=== PATIENT | male | born 1940 | race Caucasian/White ===

== ENCOUNTER 2019-08-03 15:50 | Emergency (ER) | payer MEDICARE, MEDICAID, SELFPAY ==
[2019-08-03] VITALS (15 sets, daily range): BP systolic 102–161; BP diastolic 67–90; PULSE 90–136; RESP 16–28; TEMP 36.7; O2SAT 94–98
--- NOTE | ~2019-08-03 | XR_ITS ---
EXAMINATION: XR chest 1V portable INDICATION: Cough and shortness of breath TECHNIQUE: Portable AP chest at 1620 hours COMPARISON: 05/29/2016 FINDINGS: There are patchy bilateral airspace opacities. No pleural effusion or pneumothorax is ident ified. The cardiomediastinal silhouette is normal for technique. There is moderate osteoarthritis of the shoulders. IMPRESSION: 1. Patchy bilateral airspace opacities, consistent with atelectasis versus pneumonia. Reviewed, dictated and finalized at location A. IMPRESSION: 1. Patchy bilateral airspace opacities, consistent with atelectasis versus pneu monia.
--- NOTE | 2019-08-03 16:08 | ECG_ITS ---
Measurements Intervals [place] Rate: 133 P: [place]: 0 QRS: 20 QRSD: 106 T: 71 QT: 289 QTc: 431 Interpretive Statements ATRIAL FIBRILLATION WITH RAPID VENTRICULAR RESPONSE INFERIOR INFARCT, AGE INDETERMINATE BORDERLINE ST-T WAVE ABNORMALITY- LATERAL LEADS BASELINE ARTIFACT- I, II, III, AVR, AVL, AVF, V4-V6 ABNORMAL ECG Electronically Signed On 08-03-2019 17:10:36 CDT by Isma Lopez D.O.
--- NOTE | 2019-08-03 16:12 | ED.GENADULT ---
HPI - General Adult General Chief complaint: Shortness of Breath/Dyspnea Stated complaint: amb Time Seen by Provider: 08/03/19 16:08 History of Present Illness HPI narrative: Neida is 79M with a past medical history of AFib, hypertension, obesity and arthritis who presented to the ER with anasarca and shortness of breath by EMS. He had worsening swelling that started in his lower extremities and progressed up to his waist over the last few days. Today he has had worsening shortness of breath and tightness in his chest. He denies constance chest pain, syncope / near syncope, nausea, vomiting and diaphoresis. Related Data Home Medications Medication Instructions Recorded Confirmed potassium chloride 10 meq PO DAILY 08/03/19 08/03/19 Allergies Allergy/AdvReac Type Severity Reaction Status Date / Time No Known Allergies Allergy Unverified 12/16/15 09:15 Review of Systems Constitutional: Constitutional: Denies chills, Reports fatigue and Denies fever(s) Eyes: Eyes: Reports no additional eye complaints ENT: Reports system reviewed and no additional complaints, except as documented Cardiovascular: Cardiovascular: Denies chest pain, Denies radiating jaw, neck or arm pain and Denies slow heart rate Comments: no palpitations Respiratory: Respiratory: Reports as per HPI Gastrointestinal: Gastrointestinal: Reports no additional gastrointestinal complaints Genitourinary: Genitourinary: Reports no additional male genitourinary complaints Musculoskeletal: Musculoskeletal: Reports no additional musculoskeletal complaints Integumentary/Breasts: Skin/Breast: Reports system reviewed and no additional complaints, except as docu Neurologic: Reports system reviewed and no additional complaints, except as documented Psychiatric: Psychiatric: Reports no additional psychiatric complaints Endocrine: Endocrine: Reports no additional endocrine complaints Hematologic/Lymphatic: Hematologic/Lymphatic: Reports no additional hematologic/lymphatic complaints Allergic/Immunologic: Allergic/Immunologic: Reports no additional allergic/immunologic complaints [facility] Past Medical History Medical History A-fib HTN (hypertension) Obesity (BMI 30-39.9) Osteoarthritis involving multiple joints on both sides of body Surgical History Surgical History Hx of cataract removal with insertion of prosthetic lens Family History Family History Mother Family history of type 2 diabetes mellitus Sister Hypertension Father Family history of coronary artery disease Other Family history of cardiovascular disease Social History Social History Smoking status: Former smoker Alcohol intake: never Exam Const: General: no acute distress and alert; No confusion Nutritional Appearance: obese Orientation/consciousness: patient oriented x3 Limitations: No altered mental status HENMT: Other: normocephalic, atraumatic Eyes: Conjunctivae: conjunctivae normal Pupils: Equal, round and reactive pupils present Neck: Neck: normal visual inspection Chest: Chest palpation & inspection: normal inspection of the chest Resp: Other: increased work of breathing, mild tachypnea, wheezes in the upper lobes bilaterally and crackles in the lower lobes bilaterally. had SOB with lying down. Cardio: Other: tachycardia. Irregularly irregular rhythm. no murmurs noted. 4+ pitting edema to the upper thigh GI: Inspection: non-distended GI Palp: Yes Soft to palpation and No Tenderness to palpation present (GI) Skin: General skin exam: normal color Rashes: no rashes Neuro: General: patient oriented x3 and moves all extremities Extrem: General: normal to inspection Psych: Mental Status: mental status grossly normal Affect: nor
--- NOTE | 2019-08-03 16:13 | PC.NURSE ---
INTERNATIONAL PROJECT MANAGER PERFORMING PCXR AT THIS TIME
[2019-08-03] MEDS: FUROSEMIDE INJ 40 MG/4 ML VIAL IV PUSH (16:24)
[2019-08-03] MEDS: ASPIRIN 81 MG ENTERIC TABLET 324 MG PO (16:25)
[2019-08-03 16:26] LABS: Basophils Absolute Auto 0.02 K/mm3 (0.00-0.10); Basophils Percent Auto 0.3 % (0.0-1.0); Eosinophils Absolute Auto 0.19 K/mm3 (0.02-0.50); Eosinophils Percent Auto 3.3 % (1.0-6.0); Hematocrit 37.9 % (37.0-46.0); Hemoglobin 12.2 g/dL (12.4-15.3); Immature Granulocyte Absolute 0.01 K/mm3 (0.00-0.00); Immature Granulocyte Percent A 0.2 % (0.0-0.0); Lymphocytes Percent Auto 22.4 % (18.0-42.0); Mean Corpuscular HGB Conc 32.2 g/dL (32.0-36.0); Mean Corpuscular Volume 96.2 fL (78.0-102.0); Mean Platelet Volume 10.8 fl (8.7-11.0); Monocytes Absolute Auto 0.53 K/mm3 (0.10-0.90); Monocytes Percent Auto 9.1 % (2.0-11.0); Neutrophils Absolute Auto 3.8 K/mm3 (1.7-7.2); Neutrophils Percent Auto 64.7 % (50.0-70.0); Platelet Count Result 253 K/mm3 (150-420); Red Blood Count 3.94 M/mm3 (4.70-6.10); Red Cell Distribution Width 14.7 % (11.6-14.4); White Blood Count 5.8 K/mm3 (4.8-10.8)
[2019-08-03] MEDS: IPRATROPIUM 0.5 MG/ALBUTEROL SULFATE 2.5 MG AMPUL.NEB 3 ML INHALATION (16:37)
[2019-08-03 16:41] LABS: INR 1.2
[2019-08-03 16:48] LABS: BNP 496 pg/mL (0-100)
[2019-08-03 16:49] LABS: Alanine Aminotransferase 22 U/L (16-63); Albumin Level 3.3 g/dL (3.4-5.0); Alkaline Phosphatase 85 U/L (46-116); Anion Gap 9.7 mmol/L (7-16); Aspartate Amino Transferase 21 U/L (15-37); Bilirubin,Total 0.6 mg/dL (0.00-1.00); Blood Urea Nitrogen 13 mg/dL (7-18); Calcium 8.6 mg/dL (8.5-10.1); Carbon Dioxide 31 mmol/L (21-32); Chloride 105 mmol/L (98-108); Estimated CRCL calculation 59 ml/min; Estimated Glomerular Filt Rate > 60; Glucose 90 mg/dL (70-99); Osmolality Calculated 294 mOsm/kg (285-295); Potassium 3.7 mmol/L (3.5-5.1); Sodium 142 mmol/L (136-145)
[2019-08-03] MEDS: METOPROLOL TARTRATE INJ 5 MG/5 ML VIAL IV PUSH (17:28)
[2019-08-03] MEDS: HEPARIN SODIUM 5,000 UNITS/ML VIAL 5000 UNITS (17:33)
[2019-08-03] MEDS: HEPARIN SOD/D5W 100 UNITS/ML 25,000 UNITS/250 ML BAG 13.5 UNITS (17:34)
--- NOTE | 2019-08-03 17:49 | PC.NURSE ---
HEPARIN BOLUS 4,000 UNITS, IVP RATE 10 ML/HR OR 1000U/HR
[2019-08-03] MEDS: MORPHINE SULFATE 4 MG/ML INJ IV PUSH (18:23)
== END 2019-08-03 18:33 | disposition short-term general hospital (02) ==
PROVIDERS: Emergency Provider Family Medicine; PCP Family Medicine
DX: I50.9 Heart failure, unspecified (principal); I21.4 Non-ST elevation (NSTEMI) myocardial infarction; I48.91 Unspecified atrial fibrillation; I10 Essential (primary) hypertension; Z87.891 Personal history of nicotine dependence
CPT/HCPCS: 36415; 71045; 80053; 83735; 83880; 84484; 85025; 85610; 93005; 94640; 96365; 96375; 99285; A9270; J1644; J1940; J2270

== ENCOUNTER 2019-08-03 19:10 | Inpatient (IN) | payer MEDICARE, MEDICAID, SELFPAY ==
--- NOTE | ~2019-08-03 | US_ITS ---
EXAMINATION: US renal BI EXAM DATE: 08/06/2019 10:22 INDICATION: Hematuria. Looking for blood clots. TECHNIQUE: Multiple grayscale and Doppler images of the kidneys were obtained (by a technologist who performed the scan) and subsequently reviewed. There is no prior study for comparison. FINDINGS: There is bilateral renal cortical thinning. Right kidney: There is normal contour and echogenicity. It measures 12.2 x 6.0 x 6.1 centimeters. An echoic lesion likely cyst measuring 3.1 x 3.0 x 3.3 cm. There is no hydronephrosis. Left kidney: There is normal contour and echogenicity. It measures 11.8 x 5.3 x 5.6 centimeters. Th ere are no focal renal lesions identified. There is no hydronephrosis. There is a Blackwood catheter within collapsed bladder. There is some echogenic debris surrounding the ti p of the catheter, which could be blood clot, total volume approximating the size of the Blackwood balloo n anchor. IMPRESSION: 1. Echogenic debris within bladder which could be blood clot. 2. Bilateral renal cortical thinning. Reviewed, dictated and finalized at location A.
[2019-08-03 19:10] VITALS: BP 151/76; PULSE 115; RESP 20; TEMP 36.8; O2SAT 93
[2019-08-03 19:39] VITALS: BMI 38.4
--- NOTE | 2019-08-03 19:57 | ECG_ITS ---
Measurements Intervals [place] Rate: 112 P: [place]: 0 QRS: 20 QRSD: 89 T: 60 QT: 297 QTc: 406 Interpretive Statements ATRIAL FIBRILLATION WITH RAPID VENTRICULAR RESPONSE CONSIDER INFERIOR INFARCT, AGE INDETERMINATE NONSPECIFIC T-WAVE ABNORMALITY- LATERAL LEADS BASELINE ARTIFACT- I, II, III, AVR, AVL, AVF ABNORMAL ECG Electronically Signed On 08-04-2019 7:05:11 CDT by Isma Lopez D.O.
--- NOTE | 2019-08-03 20:03 | PM.IMHP ---
H&P: HPI History of Present Illness Chief complaint: Shortness of breath w/ swelling for the past 3 day Narrative: This is a pleasant 79 year old morbidly obese male with known CAD+, CHF, atrial fibrillation chronically anticoagulated on Eliquis who presented to [facility] today with a complaint of worsening shortness of breath over the past 3 days. The patient noticed that he was also getting more lower extremity swelling over the past few days extending up towards his groin. His shortness of breath is worsened with any exertion. He has had a sporadic nonproductive cough and denies any sore throat, ear pain, fevers, nasuea, vomiting, abdominal pain, chest pain, palpitations, dysuria, diarrhea or rectal bleeding. The patient cannot tell me the last time he had an echocardiogram and he was told at some point that he had a mild heart attack in the past. The patient was evaluated at [facility] and found to be in acute CHF w/ increased peripheral edema and pulmonary congestion. He was also found to be in atrial fibrillation w/ RVR and his troponin was mildly elevated. The patient was transferred to our hospital for further care. He was treated with Lasix 40 mg IV. The patient has been taking his home medications including his Elquis without missing any doses. The patient was started on IV heparin at [facility]. On further questioning the patient admits to me that he has been eating whatever he likes and doesn't bother to watch how much salt is in the food that he eats. He is also drinking large quantities of sodas. He currently lives alone and his daughter tells me that her father likely can no longer care for himself. Review of Systems Review of Systems: All systems reviewed & are unremarkable except as noted in HPI and below PMFSH Past Medical History Medical History A-fib HTN (hypertension) Obesity (BMI 30-39.9) Osteoarthritis involving multiple joints on both sides of body Surgical History Surgical History Hx of cataract removal with insertion of prosthetic lens Family History Family History Mother Family history of type 2 diabetes mellitus Sister Hypertension Father Family history of coronary artery disease Other Family history of cardiovascular disease Social History Social History Smoking packs per day: 3 Smoking cigarettes per day: 60.0 Years smoked: 25 Smoking pack-years: 75.00 Smoking status: Former smoker Tobacco type: cigarettes Smoking end date: 05/20/88 Alcohol intake: former Drinks per week: 5 Substance use: never Gender identity (if verbalized by the patient): Male Spiritual care concerns: No Agree to blood products: Yes Meds Home Medications and Allergies Home Medications Medication Instructions Recorded Confirmed Type diltiazem HCl 240 mg 240 mg PO DAILY #30 cap 04/27/19 08/03/19 Rx capsule,extended release 24 hr furosemide 40 mg tablet 40 mg PO QAM #30 tablet 04/27/19 08/03/19 Rx apixaban 5 mg tablet 5 mg PO BID #60 tablet 06/01/19 08/03/19 Rx hydrocodone 10 mg-acetaminophen 1 tablet PO Q8H PRN #90 tablet 07/09/19 08/03/19 Rx 325 mg tablet oxybutynin chloride 5 mg PO HS 08/03/19 08/03/19 History potassium chloride 10 meq PO DAILY 08/03/19 08/03/19 History terazosin 2 mg PO HS 08/03/19 08/03/19 History Allergies Allergy/AdvReac Type Severity Reaction Status Date / Time No Known Allergies Allergy Unverified 12/16/15 09:15 Vital Signs Vital Signs - 24 hr 08/03/19 19:10 Temperature 36.8 C Pulse Rate 115 H Respiratory Rate 20 Blood Pressure 151/76 H Pulse Oximetry 93 Exam Const: General: cooperative, alert, awake and ill appearing chronically Nutritional Appearance: obese morbidly obese Orientation/consciousness: patient
[2019-08-03 20:51] LABS: Troponin I 0.323 ng/mL (0.000-0.034)
[2019-08-03] MEDS: APIXABAN 5 MG TABLET PO (21:00)
[2019-08-03] MEDS: TERAZOSIN HCL 1 MG CAPSULE 2 MG PO (21:00)
[2019-08-03 21:09] LABS: Add Urine Microscopic? YES; Appearance Urine Cloudy (Clear); Bilirubin Urine Negative (Negative); Blood Urine 3+ (Negative); Budding Yeast Urine Present /hpf; Color Urine Red (Yellow); Glucose Urine UA 1+ mg/dL (Negative); Ketones Urine Trace mg/dL (Negative); Leukocyte Esterase Ur Trace LEU/UL (Negative); Nitrate Urine Negative (Negative); Protein Urine 3+ mg/dL (Negative); RBC Urine >75 /hpf (0-2); Specific Grav Ur 1.009 (1.001-1.035); Urobilinogen Urine Negative mg/dL (<2.0); WBC Clumps Urine Present /HPF; WBC Urine >75 /hpf
--- NOTE | 2019-08-03 22:33 | ADMGEN ---
This patient, Neida Mondragon, was admitted to IMU Room 207-01 FROM [facility] ADM. 08/03/191909. Patient/family oriented to hospital policies and general routines including ID bracelet, bed and alarms, visiting hours, pain management, procedures, bathroom and other care routines, personal items, smoking policy, room service/diet, and visiting hours. Valuables list has been completed. Information on how to activate the Rapid Response Team has been discussed. Patient/Family are encouraged to report perceived risks to care and to ask questions if they do not understand what they are told or what they should do.
[2019-08-03] MEDS: LORAZEPAM 0.5 MG TABLET PO (22:53)
[2019-08-03] MEDS: OXYBUTYNIN CHLORIDE 5 MG TABLET PO (22:53)
[2019-08-03 23:41] VITALS: BP 124/76; PULSE 110; RESP 20; TEMP 36.8; O2SAT 95
[2019-08-03 23:59] VITALS: PULSE 127
[2019-08-04] VITALS (15 sets, daily range): BP systolic 105–156; BP diastolic 41–96; PULSE 107–140; RESP 18–22; TEMP 36.6–37.4; O2SAT 93–98
--- NOTE | 2019-08-04 | ECHO_ITS ---
Patient Info Name: Neida Mondragon Age: 79 years : 1940 Gender: Male Ht: 69 in Wt: 260 lbs BSA: 2.45 m2 HR: 135 bpm BP: 133 / 86 mmHg Heart Rhythm: Atrial Fibrillation Technical Quality: Fair Exam Date: 08/04/2019 1:00 PM Exam Location: [facility] Pulmonary Patient Status: Inpatient Admit Date: 08/03/2019 Staff Ordering Physician: Ravindra Galeano MD Human Resources Professional: Maurilio Fritz RDCS Attending Provider: Ruddy Blakely MD Referring Physician: Waleska NEGRON; Exam Type: CA echo dop color flow w con Study Info Indications I50.20 - Unspecified systolic (congestive) heart failure Complete two-dimensional, color flow and Doppler transthoracic echocardiogram is performed with contrast to opacify the left ventrical and to improve the deliniation of the left ventrical endocarial boarders. Contrast/Agitated Saline Contrast/Ag. Saline: Definity Amount: 2.00 ml Administered By: Noman Pisano RN Existing IV Access: Yes History/Risk Factors Afib and CHF exacerbation; HTN, CAD, SOB, edema, elevated trops. Summary 1. Left ventricular chamber dimension is mildly enlarged. 2. Left ventricular systolic function is severely reduced, estimated at 20-25%. 3. There is mildly increased left ventricular wall thickness. 4. The left ventricular diastolic function is indeterminate. 5. Global hypokinesis of the left ventricle. 6. Left atrial chamber dimension is mildly enlarged. 7. There is mild aortic valve sclerosis. 8. There is mild mitral valve regurgitation. 9. The mitral valve has thickened leaflets. 10. There is mild tricuspid valve regurgitation. Left Ventricle Left ventricular chamber dimension is mildly enlarged. Left ventricular systolic function is severely reduced, estimated at 20-25%. There is mildly increased left ventricular wall thickness. The left ventricular diastolic function is indeterminate. Global hypokinesis of the left ventricle. Right Ventricle Right ventricular chamber dimension is normal. Right ventricular systolic function is normal. Left Atria Left atrial chamber dimension is mildly enlarged. Right Atria Right atrial chamber dimension is normal. Atrial Septum Intact interatrial septum visualized by color flow imaging. Aortic Valve The aortic valve is trileaflet. There is mild aortic valve sclerosis. There is no aortic valve stenosis. There is trace aortic valve regurgitation. Pulmonic Valve The pulmonic valve is not well visualized. There is no pulmonic valve stenosis. Mitral Valve The mitral valve has thickened leaflets. There is no mitral valve stenosis. There is mild mitral valve regurgitation. Tricuspid Valve The tricuspid valve leaflets are normal. There is no significant tricuspid valve stenosis. There is mild tricuspid valve regurgitation. Pericardium/Pleural The pericardium appears normal. There is trivial pericardial effusion. Inferior Vena Cava Dilated inferior vena cava with no collapse upon inspiration consistent with elevated right atrial pressure, 20 mmHg. Aorta The aortic root size at the sinus of Valsalva is borderline dilated. Left Ventricular Outflow Tract Name Value Normal LVOT 2D
[2019-08-04 00:11] LABS: Troponin I 0.326 ng/mL (0.000-0.034)
[2019-08-04 04:50] LABS: Basophils Percent Auto 0.2 % (0.2-1.2); Eosinophils Absolute Auto 0.1 K/mm3 (0-0.3); Eosinophils Percent Auto 1.1 % (0-4.4); Hematocrit 39.9 % (42.0-52.0); Hemoglobin 12.9 g/dL (14.0-18.0); Immature Granulocyte Absolute 0.04 K/mm3 (0.00-0.031); Immature Granulocyte Percent A 0.4 % (0-0.5); Lymphocytes Absolute Auto 1.14 K/mm3 (0.9-3.2); Lymphocytes Percent Auto 11.5 % (18.3-44.2); Mean Corpuscular HGB Conc 32.3 g/dl (32-36); Mean Corpuscular Hemoglobin 30.7 pg (26-34); Mean Platelet Volume 11.3 fl (7.4-10.4); Monocytes Absolute Auto 0.8 K/mm3 (0.1-0.6); Monocytes Percent Auto 7.9 % (2.6-8.5); Neutrophils Absolute Auto 7.9 K/mm3 (1.3-6.7); Neutrophils Percent Auto 78.9 % (45.5-73.1); Platelet Count Result 282 k/mm3 (150-375); Red Cell Distribution Width 14.9 % (11.5-14.5)
[2019-08-04 05:13] LABS: Blood Urea Nitrogen 13 mg/dL (9-20); Carbon Dioxide 30 mmol/L (22-30); Chloride 102 mmol/L (98-107); Estimated CRCL calculation 66 ml/min; Estimated Glomerular Filt Rate > 60; Glucose 110 mg/dL (75-110); Potassium 3.5 mmol/L (3.4-5.0); Sodium 140 mmol/L (137-145)
[2019-08-04 05:30] LABS: Troponin I 0.262 ng/mL (0.000-0.034)
--- NOTE | 2019-08-04 07:25 | WPDURCON ---
Assessment and Plan Assessment and plan (1) Urinary retention: Code(s): R33.9 - Retention of urine, unspecified Status: Acute (2) Gross hematuria: Code(s): R31.0 - Gross hematuria Status: Acute Assessment and Plan: Hematuria and retention likely due to BPH. Bleeding stopped probably with Blackwood catheter placement. Will start finasteride and stop oxybutynin. If hematuria continues to be resolved over the next 8-12 hours I am comfortable with continuing/resumption of anticoagulation. Urology Consult Note HPI Date Seen: 08/04/19 Requesting Physician: Ruddy Blakely MD Primary Care Provider: Ko Garcia DO Consult Narrative Narrative: Neida Mondragon is a 79 year old male reports a longstanding history of prostatism reports a longstanding history of prostatism but has never seen a urologist. He was admitted overnight with congestive heart failure and, reportedly, his fat been found to be in atrial fibrillation. With anticoagulation he developed hematuria with eventual clot urinary retention. The nurses removed his 2 small indwelling catheter because of an inability to irrigate. It did not attempt replacement of the catheter he then went into urinary retention. Review of Systems Cardiovascular: Cardiovascular: Denies chest pain, Denies lightheadedness, Denies palpitations and Denies dyspnea Respiratory: Respiratory: Denies dyspnea and Reports dyspnea on exertion Gastrointestinal: Gastrointestinal: Denies diarrhea, Denies nausea and Denies vomiting Genitourinary: Genitourinary: Denies hematuria and Denies dysuria Endocrine: Endocrine: Denies palpitations PMFSH Past Medical History Medical History A-fib HTN (hypertension) Obesity (BMI 30-39.9) Osteoarthritis involving multiple joints on both sides of body Surgical History Surgical History Hx of cataract removal with insertion of prosthetic lens Family History Family History Mother Family history of type 2 diabetes mellitus Sister Hypertension Father Family history of coronary artery disease Other Family history of cardiovascular disease Social History Social History Smoking packs per day: 3 Smoking cigarettes per day: 60.0 Years smoked: 25 Smoking pack-years: 75.00 Smoking status: Former smoker Tobacco type: cigarettes Smoking end date: 05/20/88 Alcohol intake: former Drinks per week: 5 Substance use: never Gender identity (if verbalized by the patient): Male Spiritual care concerns: No Agree to blood products: Yes Meds Home Medications and Allergies Home Medications Medication Instructions Recorded Confirmed Type diltiazem HCl 240 mg 240 mg PO DAILY #30 cap 04/27/19 08/03/19 Rx capsule,extended release 24 hr furosemide 40 mg tablet 40 mg PO QAM #30 tablet 04/27/19 08/03/19 Rx apixaban 5 mg tablet 5 mg PO BID #60 tablet 06/01/19 08/03/19 Rx hydrocodone 10 mg-acetaminophen 1 tablet PO Q8H PRN #90 tablet 07/09/19 08/03/19 Rx 325 mg tablet oxybutynin chloride 5 mg PO HS 08/03/19 08/03/19 History potassium chloride 10 meq PO DAILY 08/03/19 08/03/19 History terazosin 2 mg PO HS 08/03/19 08/03/19 History Allergies Allergy/AdvReac Type Severity Reaction Status Date / Time No Known Allergies Allergy Unverified 12/16/15 09:15 Vital Signs Vital Signs - 24 hr 08/03/19 19:10 08/03/19 23:41 08/03/19 23:59 Temperature 98.3 F 98.2 F Pulse Rate 115 H 110 H 127 H Respiratory Rate 20 20 Blood Pressure 151/76 H 124/76 Pulse Oximetry 93 95 08/04/19 02:16 08/04/19 04:00 08/04/19 05:53 Temperature 98.0 F Pulse Rate 130 H 140 H 140 H Respiratory Rate 20 Blood Pressure 156/96 H Pulse Oximetry 94 Exam Const: General: no
--- NOTE | 2019-08-04 07:39 | PC.NURSE ---
[id number] HERE TO ASSESS PT. FOR INABILITY TO VOID. INSERTED #22 3-WAY MARTINO WITH MUCH DIFFICULTY. USING DILITATED FILLIFORMS. LRGE. AMT OF DARK BLOOD AND CLOTS RETURNED ONCE WITH URINE. CBI STARTED WIDE OPEN DUE TO DARK BLOODY URINE. PT. GRACIA. PROCEDURE FAIRLY WELL.
--- NOTE | 2019-08-04 08:01 | PM.IMPN ---
Progress Note: A&P Assessment and Plan (1) Atrial fibrillation with rapid ventricular response: Code(s): I48.91 - Unspecified atrial fibrillation Status: Acute Assessment and Plan: Possibly secondary to acute CHF exacerbation. Echo pending Hold apixaban due to hematuria (2) Acute exacerbation of CHF (congestive heart failure): Code(s): I50.9 - Heart failure, unspecified Status: Acute Assessment and Plan: Fluid restriction IV furosemide (3) Elevated troponin: Code(s): R79.89 - Other specified abnormal findings of blood chemistry Status: Acute Assessment and Plan: Appears due to afib/rvr No ACS (4) HTN (hypertension): Code(s): I10 - Essential (primary) hypertension Status: Chronic Assessment and Plan: Monitor on current regimen (5) Urinary retention: Code(s): R33.9 - Retention of urine, unspecified Status: Acute Assessment and Plan: Sx's c/w prostatic hypertrophy, which may be source of bleeding as well Hematuria clearing with CBI Further evaluation or urinary tract might be prudent prior to resumption of anticoagulation Subjective Date/time seen: 08/04/19 08:01 Interval history: Admitted 08/02 with CHF, afib RVR, urinary retention. Blackwood placed by urology this AM with bleeding. Now on CBI with urine clearing. 08/03 no sob at rest. Hx chronic urinary frequency and dribbling. No bleeding until this AM. No GI issues. Denied cp, other bleeding. Review of Systems Review of Systems: All systems reviewed & are unremarkable except as noted in HPI and below Exam Narrative: Exam Narrative: HEENT: EOMI, PERRL, sclerae nonicteric, pharyngeal mucosa pink and intact NECK: No JVD, adenopathy, or thyromegaly CHEST: Clear to auscultation. Normal effort. HEART: NL S1/S2, irregular, tachycardic, no murmur ABDOMEN: BS+, soft, nontender, no mass, no bruits EXTREMITIES: nonpitting edema bilateral LEs NEUROLOGIC: CN intact and symmetric to inspection. MUSCULOSKELETAL: Tone and strength symmetric. PSYCH: Alert. Oriented to person, place, and time (2019, but month June) Objective Data Vital Signs Vital Signs: Vital Signs - 24 hr 08/03/19 19:10 08/03/19 23:41 08/03/19 23:59 Temperature 98.3 F 98.2 F Pulse Rate 115 H 110 H 127 H Respiratory Rate 20 20 Blood Pressure 151/76 H 124/76 Pulse Oximetry 93 95 08/04/19 02:16 08/04/19 04:00 08/04/19 05:53 Temperature 98.0 F Pulse Rate 130 H 140 H 140 H Respiratory Rate 20 Blood Pressure 156/96 H Pulse Oximetry 94 Intake/Output Intake/Output: Intake & Output 08/01/19 08/02/19 08/03/19 08/04/19 23:59 23:59 23:59 23:59 Intake Total 100 Balance 100 Meds/Results Medications: Active Medications Generic Name Dose Route Start Last Admin Trade Name Freq PRN Reason Stop Dose Admin Acetaminophen 650 mg 08/03/19 20:01 Tylenol Tablet PO Q4H PRN Mild Pain (1-3) or Fever Hydrocodone Bitart/Acetaminophen 1 tab 08/03/19 20:02 08/04/19 06:14 [place] 10-325 Mg PO 1 tab Q8H PRN Administration pain 7-10 Al Hydrox/Mg Hydrox/Simethicone 30 ml 08/03/19 20:01 Mylanta PO QID PRN Dyspepsia Apixaban 5 mg 08/03/19 20:25 08/03/19 21:00 Eliquis PO 5 mg BID GENTRY Administration Finasteride 5 mg 08/04/19 09:00 Proscar PO QAM GENTRY Furosemide 40 mg 08/04/19 09:00 Lasix Inj IV PUSH DAILY GENTRY Diltiazem HCl 100 mg in 100 mls @ 10 mls/hr 08/03/19 20:00 08/04/19 02:13 Cardizem 100 Mg/D5w 100 Ml IV CONT 10 mg/hr .Q10H GENTRY 10 mls/hr Infusion Protocol 10 MG/HR Magnesium Hydroxide 30 ml 08/03/19 20:01 Milk Of Magnesia PO DAILY PRN Constipation Potassium Chloride 10 meq 08/04/19 09:00 Kcl Tablet PO DAILY GENTRY Terazosin HCl 4 mg 08/04/19 07:31 Hytrin PO HS GENTRY Labs Labs: Laboratory Results - last 24 hr 08/03/1907/18
[2019-08-04] MEDS: POTASSIUM CHLORIDE 10 MEQ TABLET.ER PO (10:51)
[2019-08-04] MEDS: FINASTERIDE 5 MG TABLET PO (10:52)
[2019-08-04] MEDS: FUROSEMIDE INJ 40 MG/4 ML VIAL IV PUSH ×2 (10:52→17:39)
--- NOTE | 2019-08-04 12:06 | PM.CNCAR ---
Assessment and Plan Assessment and plan (1) Atrial fibrillation with rapid ventricular response: Code(s): I48.91 - Unspecified atrial fibrillation Status: Acute Assessment and Plan: uncertain if this is paroxysmal or chronic atrial fibrillation. I suspect chronic atrial fibrillation. Regardless will increase his diltiazem drip at 15 mg / hour. 2D echocardiogram Doppler will be ordered and reviewed. His anticoagulation will be on hold for now given his hematuria but should be restarted within the next 24 hours if okay with Urology. (2) Acute exacerbation of CHF (congestive heart failure): Code(s): I50.9 - Heart failure, unspecified Status: Acute Assessment and Plan: Increase furosemide to 40 mg IV q.12 hours. Potassium chloride 40 mEq p.o. x1 as well as 40 mEq daily. Will also add a low-dose beta-subha in the form metoprolol tartrate 25 mg p.o. b.i.d.. I suspect his heart failure is systolic in etiology but echocardiogram will help to finesse (3) HTN (hypertension): Code(s): I10 - Essential (primary) hypertension Status: Chronic Assessment and Plan: elevated (4) Elevated troponin: Code(s): R79.89 - Other specified abnormal findings of blood chemistry Status: Acute Assessment and Plan: unlikely related to ACS (5) Gross hematuria: Code(s): R31.0 - Gross hematuria Status: Acute Assessment and Plan: Blackwood in place and undergoing bladder irrigation History of Present Illness History of Present Illness Consult date/time: 08/04/19 12:06 Requesting physician: Ravindra Galeano MD Consult reason: atrial fibrillation Reason For Visit: Shortness of breath w/ swelling for the past 3 day Narrative: date of service 08/04/2019: Reason for consultation: Atrial fibrillation History: Patient is a 79-year-old male who has a history of atrial fibrillation on chronic anticoagulation with Eliquis. He has not seen a windlasser and several years if ever. He states that he started become short of breath over the past couple of days and became more more edematous over the past week. He came to the hospital because of worsening shortness of breath and swelling at the insistence of his daughter. He denies any chest pain, syncope, presyncope, paroxysmal nocturnal dyspnea, orthopnea or palpitations. He did have some hematuria thought to be related to Blackwood trauma. It has since improved. Patient was found in the emergency room department to be short of breath and had severe edema. He was found to be in atrial fibrillation with rapid ventricular response. He was started on diltiazem drip and IV diuretics. Review of Systems Review of Systems: All systems reviewed & are unremarkable except as noted in HPI and below Constitutional: Constitutional: Denies chills Eyes: Eyes: Denies photophobia ENT: Denies epistaxis and Denies nasal congestion Cardiovascular: Cardiovascular: Denies chest pain Respiratory: Respiratory: Reports dyspnea Gastrointestinal: Gastrointestinal: Denies abdominal pain Genitourinary: Genitourinary: Reports hematuria Musculoskeletal: Musculoskeletal: Denies neck pain Integumentary/Breasts: Skin/Breast: Denies unusual bruising Neurologic: Denies confusion and Denies headache(s) Psychiatric: Psychiatric: Denies anxiety Endocrine: Endocrine: Denies excessive sweating Hematologic/Lymphatic: Hematologic/Lymphatic: Denies easy bruising Allergic/Immunologic: Allergic/Immunologic: Denies GI upset with certain foods and Denies lip swelling PMFSH Past Medical History Medical History A-fib HTN (hypertension) Obesity (BMI 30-39.9) Osteoarthritis involving multiple joints on both sides of body Surgical History Surgical History Hx of cataract removal with insertion of prosthetic lens Family History Fam
[2019-08-04] MEDS: PERFLUTREN LIPID MICROSPHERES 1.5 ML VIAL DILUTED TO 10 ML TOTAL VOLUME IV PUSH (13:33)
[2019-08-04] MEDS: METOPROLOL TARTRATE 25 MG TABLET PO (17:38)
[2019-08-04] MEDS: POTASSIUM CHLORIDE 20 MEQ TABLET 40 MEQ PO (17:38)
[2019-08-04] MEDS: TERAZOSIN HCL 1 MG CAPSULE 4 MG PO (20:24)
[2019-08-04] MEDS: MAG HYDROX/AL HYDROX/SIMETH 30 ML UDC PO (20:24)
[2019-08-04] MEDS: METOPROLOL TARTRATE 50 MG TAB PO (20:26)
[2019-08-04 20:38] LABS: Glucose Point of Care 120 (65-105)
[2019-08-04] MEDS: MELATONIN 3 MG TABLET PO (22:58)
[2019-08-05] VITALS (17 sets, daily range): BP systolic 98–137; BP diastolic 58–87; PULSE 91–137; RESP 20–24; TEMP 36–36.7; O2SAT 91–98
[2019-08-05 05:13] LABS: Hematocrit 36.9 % (42.0-52.0); Hemoglobin 12.1 g/dL (14.0-18.0); Mean Corpuscular HGB Conc 32.8 g/dl (32-36); Mean Corpuscular Hemoglobin 31.3 pg (26-34); Mean Corpuscular Volume 95.3 fl (80-100); Mean Platelet Volume 12.1 fl (7.4-10.4); Platelet Count Result 268 k/mm3 (150-375); Red Blood Count 3.87 M/mm3 (4.6-6.20); Red Cell Distribution Width 15.1 % (11.5-14.5); White Blood Count 12.6 K/mm3 (4.5-10.0)
[2019-08-05 05:39] LABS: Blood Urea Nitrogen 14 mg/dL (9-20); Carbon Dioxide 32 mmol/L (22-30); Chloride 102 mmol/L (98-107); Estimated CRCL calculation 74 ml/min; Estimated Glomerular Filt Rate > 60; Glucose 119 mg/dL (75-110); Potassium 3.6 mmol/L (3.4-5.0); Sodium 139 mmol/L (137-145)
--- NOTE | 2019-08-05 07:51 | PM.IMPN ---
Progress Note: A&P Assessment and Plan (1) Atrial fibrillation with rapid ventricular response: Code(s): I48.91 - Unspecified atrial fibrillation Status: Acute Assessment and Plan: Possibly secondary to acute CHF exacerbation vs ongoing causing worsened LV dysfunction. Echo with global LV dysfunction, EF about 25% RVR difficult to control with medications 08/04 apixaban resumed in anticipation of possible cardioversion 08/05 (2) Acute exacerbation of CHF (congestive heart failure): Code(s): I50.9 - Heart failure, unspecified Status: Acute Assessment and Plan: Fluid restriction IV furosemide (3) Elevated troponin: Code(s): R79.89 - Other specified abnormal findings of blood chemistry Status: Acute Assessment and Plan: Appears due to afib/rvr No ACS (4) HTN (hypertension): Code(s): I10 - Essential (primary) hypertension Status: Chronic Assessment and Plan: Monitor on current regimen (5) Urinary retention: Code(s): R33.9 - Retention of urine, unspecified Status: Acute Assessment and Plan: Sx's c/w prostatic hypertrophy, which may be source of bleeding as well Hematuria clearedwith CBI Further evaluation or urinary tract might be prudent if bleeding recurs Subjective Date/time seen: 08/05/19 07:51 Interval history: Admitted 08/02 with CHF, afib RVR, urinary retention. Blackwood placed by urology 08/03 but with bleeding. Apixaban held. CBI cleared. 08/03 no sob at rest. Hx chronic urinary frequency and dribbling. No bleeding until this AM. No GI issues. Denied cp, other bleeding. Review of Systems Review of Systems: All systems reviewed & are unremarkable except as noted in HPI and below Exam Narrative: Exam Narrative: HEENT: EOMI, PERRL, sclerae nonicteric, pharyngeal mucosa pink and intact NECK: No JVD CHEST: Clear to auscultation. Normal effort. HEART: NL S1/S2, irregular, tachycardic, no murmur ABDOMEN: BS+, soft, nontender, no mass, no bruits EXTREMITIES: nonpitting edema bilateral LEs NEUROLOGIC: CN intact and symmetric to inspection. MUSCULOSKELETAL: Tone and strength symmetric. PSYCH: Alert. Oriented to person, place, and time (2019, but month June) Objective Data Vital Signs Vital Signs: Vital Signs - 24 hr 08/04/19 07:56 08/04/19 08:00 08/04/19 12:00 Temperature 98.7 F Pulse Rate 130 H 130 H 122 H Respiratory Rate 18 18 20 Blood Pressure 133/86 Pulse Oximetry 93 93 96 08/04/19 12:39 08/04/19 14:00 08/04/19 16:00 Temperature 98.4 F Pulse Rate 122 H 122 H 130 H Respiratory Rate 20 20 Blood Pressure 123/79 Pulse Oximetry 96 94 08/04/19 17:00 08/04/19 17:38 08/04/19 20:00 Temperature 99.3 F 99.3 F Pulse Rate 130 H 136 H 125 H Respiratory Rate 20 20 Blood Pressure 119/78 129/41 L Pulse Oximetry 94 94 08/04/19 20:26 08/04/19 22:00 08/04/19 23:52 Temperature 97.8 F Pulse Rate 116 H 125 H 107 H Respiratory Rate 22 H Blood Pressure 105/45 L Pulse Oximetry 98 08/05/19 00:00 08/05/19 01:22 08/05/19 03:52 Temperature Pulse Rate 105 H 109 H 104 H Respiratory Rate 22 H 22 H Blood Pressure Pulse Oximetry 98 98 08/05/19 05:00 08/05/19 06:00 Temperature 97.9 F Pulse Rate 118 H 110 H Respiratory Rate 22 H Blood Pressure 107/65 Pulse Oximetry 96 Intake/Output Intake/Output: Intake & Output 08/02/19 08/03/19 08/04/19 08/05/19 23:59 23:59 23:59 23:59 Intake Total 660 250 Output Total 09319 1550 Balance -25520 -6458 Meds/Results Medications: Active Medications Generic Name Dose Route Start Last Admin Trade Name Freq PRN Reason Stop Dose Admin Acetaminophen 650 mg 08/03/19 20:01 Tylenol Tablet PO Q4H PRN Mild Pain (1-3) or Fever Hydrocodone Bitart/Acetaminophen 1 tab 08/03/19 20:02 08/05/19 02:18 [place] 10-325 Mg PO 1 tab Q8H PRN Administration pain 7-10 Al Hydrox/Mg Hydrox/Simethicon
--- NOTE | 2019-08-05 08:00 | ECG_ITS ---
Measurements Intervals [place] Rate: 122 P: [place]: 0 QRS: 21 QRSD: 100 T: 31 QT: 299 QTc: 428 Interpretive Statements ATRIAL FIBRILLATION WITH RAPID VENTRICULAR RESPONSE CONSIDER INFERIOR INFARCT, AGE INDETERMINATE BORDERLINE T WAVE ABNORMALITY- LATERAL LEADS ABNORMAL ECG Electronically Signed On 08-05-2019 9:23:43 CDT by Isma Lopez D.O.
--- NOTE | 2019-08-05 08:48 | WPDPN ---
Progress Note: A&P Assessment and Plan (1) Gross hematuria: Code(s): R31.0 - Gross hematuria Status: Acute Assessment and Plan: Hematuria and retention likely due to BPH. Bleeding stopped with Blackwood catheter placement. Urine is now clear with CBI off. Continue Blackwood for now Continue finasteride Review of Systems Constitutional: Constitutional: Reports no additional constitutional complaints Eyes: Eyes: Reports no additional eye complaints ENT: Reports system reviewed and no additional complaints, except as documented Respiratory: Respiratory: Reports no additional respiratory complaints Gastrointestinal: Gastrointestinal: Reports no additional gastrointestinal complaints Musculoskeletal: Musculoskeletal: Reports no additional musculoskeletal complaints Exam Const: General: no acute distress Eyes: General: appearance normal, both eyes and all related structures Resp: Effort & Inspection: normal respiratory effort : Other: Urine clear with CBI off Objective Data Vital Signs Vital Signs: Vital Signs - 24 hr 08/04/19 12:00 08/04/19 12:39 08/04/19 14:00 Temperature 36.9 C Pulse Rate 122 H 122 H 122 H Respiratory Rate 20 20 Blood Pressure 123/79 Pulse Oximetry 96 96 08/04/19 16:00 08/04/19 17:00 08/04/19 17:38 Temperature 37.4 C Pulse Rate 130 H 130 H 136 H Respiratory Rate 20 20 Blood Pressure 119/78 Pulse Oximetry 94 94 08/04/19 20:00 08/04/19 20:26 08/04/19 22:00 Temperature 37.4 C Pulse Rate 125 H 116 H 125 H Respiratory Rate 20 Blood Pressure 129/41 L Pulse Oximetry 94 08/04/19 23:52 08/05/19 00:00 08/05/19 01:22 Temperature 36.6 C Pulse Rate 107 H 105 H 109 H Respiratory Rate 22 H 22 H Blood Pressure 105/45 L Pulse Oximetry 98 98 08/05/19 03:52 08/05/19 05:00 08/05/19 06:00 Temperature 36.6 C Pulse Rate 104 H 118 H 110 H Respiratory Rate 22 H 22 H Blood Pressure 107/65 Pulse Oximetry 98 96 08/05/19 08:00 Temperature 36.3 C L Pulse Rate 115 H Respiratory Rate 24 H Blood Pressure 137/87 Pulse Oximetry 94 Intake/Output Intake/Output: Intake & Output 08/02/19 08/03/19 08/04/19 08/05/19 23:59 23:59 23:59 23:59 Intake Total 660 250 Output Total [id number] 4619 Balance -32486 -4883 Meds/Results Medications: Active Medications Generic Name Dose Route Start Last Admin Trade Name Freq PRN Reason Stop Dose Admin Acetaminophen 650 mg 08/03/19 20:01 Tylenol Tablet PO Q4H PRN Mild Pain (1-3) or Fever Hydrocodone Bitart/Acetaminophen 1 tab 08/03/19 20:02 08/05/19 02:18 [place] 10-325 Mg PO 1 tab Q8H PRN Administration pain 7-10 Al Hydrox/Mg Hydrox/Simethicone 30 ml 08/03/19 20:01 08/04/19 20:24 Mylanta PO 30 ml QID PRN Administration Dyspepsia Apixaban 5 mg 08/03/19 20:25 08/04/19 17:39 Eliquis PO 5 mg BID GENTRY Administration Finasteride 5 mg 08/04/19 09:00 08/04/19 10:52 Proscar PO 5 mg QAM GENTRY Administration Furosemide 40 mg 08/04/19 17:00 08/04/19 17:39 Lasix Inj IV PUSH 40 mg BID GENTRY Administration Diltiazem HCl 100 mg in 100 mls @ 10 mls/hr 08/03/19 20:00 08/05/19 05:52 Cardizem 100 Mg/D5w 100 Ml IV CONT 10 mg/hr .Q10H GENTRY 10 mls/hr Administration Protocol 10 MG/HR Magnesium Hydroxide 30 ml 08/03/19 20:01 Milk Of Magnesia PO DAILY PRN Constipation Melatonin 3 mg 08/04/19 22:35 08/04/19 22:58 Melatonin PO 3 mg HS GENTRY Administration Metoprolol Tartrate 50 mg 08/04/19 21:00 08/04/19 20:26 Lopressor PO 50 mg Q12HR GENTRY Administration Potassium Chloride 40 meq 08/04/19 09:00 08/04/19 17:51 Kcl Tablet PO Not Given DAILY GENTRY Terazosin HCl 4 mg 08/04/19 07:31 08/04/19 20:24 Hytrin PO 4 mg HS GENTRY Administration Labs Labs: Laboratory Results - last 24 hr 08/04/19 08/05/19 08/05/19 20:30 04:21 04:21 WBC 12.6 H RBC
[2019-08-05] MEDS: FUROSEMIDE INJ 40 MG/4 ML VIAL IV PUSH ×2 (09:32→18:11)
[2019-08-05] MEDS: POTASSIUM CHLORIDE 20 MEQ TABLET.ER 40 MEQ PO (09:32)
[2019-08-05] MEDS: METOPROLOL TARTRATE 50 MG TAB PO ×2 (09:32→21:17)
[2019-08-05] MEDS: FINASTERIDE 5 MG TABLET PO (09:32)
[2019-08-05] MEDS: APIXABAN 5 MG TABLET PO (09:52)
--- NOTE | 2019-08-05 10:27 | PM.PNCARD ---
Progress Note: A&P Assessment and Plan (1) Atrial fibrillation with rapid ventricular response: Code(s): I48.91 - Unspecified atrial fibrillation Status: Acute Assessment and Plan: uncertain if this is paroxysmal or chronic atrial fibrillation. I suspect chronic atrial fibrillation. His ejection fraction is severely reduced. This may be tachycardic induced but he certainly may have ischemia also. Regardless diltiazem is a poor choice and I am going to stop his diltiazem drip. Continue metoprolol. Will switch him to amiodarone 150 mg IV bolus and standard drip per protocol. Eliquis we restarted today. If he still in atrial fibrillation tomorrow, NAN guided cardioversion will be planned. (2) Acute exacerbation of CHF (congestive heart failure): Code(s): I50.9 - Heart failure, unspecified Status: Acute Assessment and Plan: Continue furosemide to 40 mg IV q.12 hours. (3) HTN (hypertension): Code(s): I10 - Essential (primary) hypertension Status: Chronic Assessment and Plan: elevated (4) Elevated troponin: Code(s): R79.89 - Other specified abnormal findings of blood chemistry Status: Acute Assessment and Plan: unlikely related to ACS (5) Gross hematuria: Code(s): R31.0 - Gross hematuria Status: Acute Assessment and Plan: Blackwood in place and undergoing bladder irrigation Will need to monitor his hematuria following restarting Eliquis Subjective Date/time seen: 08/05/19 10:27 Interval history: Admitted 08/02 with CHF, afib RVR, urinary retention. Date of service 08/04 no sob at rest. Edema is better. No chest pain. Review of Systems Review of Systems: All systems reviewed & are unremarkable except as noted in HPI and below Constitutional: Constitutional: Denies chills, Denies excessive sweating and Denies headache(s) Eyes: Eyes: Denies photophobia ENT: Denies headache(s), Denies lip swelling, Denies epistaxis, Denies nasal congestion and Denies neck pain Cardiovascular: Cardiovascular: Denies chest pain and Reports dyspnea Respiratory: Respiratory: Reports dyspnea Gastrointestinal: Gastrointestinal: Denies abdominal pain Genitourinary: Genitourinary: Reports hematuria Musculoskeletal: Musculoskeletal: Denies neck pain Integumentary/Breasts: Skin/Breast: Denies unusual bruising Neurologic: Denies confusion and Denies headache(s) Psychiatric: Psychiatric: Denies anxiety and Denies confusion Endocrine: Endocrine: Denies excessive sweating Hematologic/Lymphatic: Hematologic/Lymphatic: Denies easy bruising Allergic/Immunologic: Allergic/Immunologic: Denies GI upset with certain foods and Denies lip swelling Exam Narrative: Exam Narrative: Alert and oriented Const: General: comfortable; No confusion Orientation/consciousness: No confusion HENMT: General nose exam: no epistaxis Eyes: Sclera: sclerae normal Direct Ophthalmoscopy: No photophobia Neck: Neck: supple and no JVD Chest: Other: no chest wall pain to palpation Resp: Auscultation: rales Cardio: Rate: tachycardic Rhythm: abnormal rhythm : Other: pink urine noted via catheter Urinary Catheter: Urinary Catheter: urine pink Skin: Wounds: no wounds Neuro: General: No confusion Cognition (Neuro): normal cognition Speech: normal speech Extrem: General: edema and pedal edema Psych: Mental Status: mental status grossly normal Affect: normal affect Objective Data Vital Signs Vital Signs: Vital Signs - 24 hr 08/04/19 12:00 08/04/19 12:39 08/04/19 14:00 Temperature 36.9 C Pulse Rate 122 H 122 H 122 H Respiratory Rate 20 20 Blood Pressure 123/79 Pulse Oximetry 96 96 08/04/19 16:00 08/04/19 17:00 08/04/19 17:38 Temperature 37.4 C Pulse Rate 130 H 130 H 136 H Respiratory Rate 20 20 Blood Pressure 119/78 Pulse Oximetry 94 94 08/04/19 20:00 08/04/19 20:26 08/04/19 22:00 Temperature
[2019-08-05] MEDS: AMIODARONE 150 MG/D5W 100 ML 150 MG/100 ML BAG 600 MG IV CONT ×2 (11:50→18:25)
[2019-08-05] MEDS: AMIODARONE 360 MG/D5W 200 ML 360 MG/200 ML BAG 33.3 MG IV CONT (11:52)
[2019-08-05] MEDS: AMIODARONE 360 MG/D5W 200 ML 360 MG/200 ML BAG 16.7 MG IV CONT (18:11)
[2019-08-05] MEDS: TERAZOSIN HCL 1 MG CAPSULE 4 MG PO (21:17)
[2019-08-05] MEDS: MELATONIN 3 MG TABLET PO (21:18)
[2019-08-06] VITALS (17 sets, daily range): BP systolic 98–118; BP diastolic 53–82; PULSE 63–130; RESP 18–22; TEMP 36–36.6; O2SAT 95–97
[2019-08-06] MEDS: AMIODARONE 360 MG/D5W 200 ML 360 MG/200 ML BAG 16.7 MG IV CONT ×3 (00:15→23:39)
--- NOTE | 2019-08-06 01:10 | PCRCNOTE ---
APNEA LINK WAS NOT COMPLETED PATIENT IS ON CBI PER PATRICE VILLA RN, AND WILL NOT BE ABLE TO COMPLETE 6 UNINTERRUPTED HOURS OF TESTING.
[2019-08-06] MEDS: ACETAMINOPHEN 325 MG TABLET 650 MG PO ×2 (02:31→13:49)
[2019-08-06 04:56] LABS: Hematocrit 33.5 % (42.0-52.0); Hemoglobin 10.7 g/dL (14.0-18.0); Mean Corpuscular HGB Conc 31.9 g/dl (32-36); Mean Corpuscular Hemoglobin 30.7 pg (26-34); Platelet Count Result 240 k/mm3 (150-375); Red Blood Count 3.49 M/mm3 (4.6-6.20); Red Cell Distribution Width 15.3 % (11.5-14.5); White Blood Count 11.6 K/mm3 (4.5-10.0)
[2019-08-06 05:23] LABS: Blood Urea Nitrogen 19 mg/dL (9-20); Calcium 8.2 mg/dL (8.4-10.2); Carbon Dioxide 34 mmol/L (22-30); Chloride 101 mmol/L (98-107); Estimated CRCL calculation 67 ml/min; Estimated Glomerular Filt Rate > 60; Glucose 110 mg/dL (75-110); Potassium 3.2 mmol/L (3.4-5.0); Sodium 138 mmol/L (137-145)
--- NOTE | 2019-08-06 07:34 | WPDUROPN2 ---
Progress Note: A&P Assessment and Plan (1) Gross hematuria: Code(s): R31.0 - Gross hematuria Status: Acute (2) Urinary retention: Code(s): R33.9 - Retention of urine, unspecified Status: Acute Assessment and Plan: Overnight the patient's nurse describes episodes of clot urinary retention but this morning his urine is perfectly clear. I question whether he is just having episodes of hematuria around bladder spasms. We will get a pelvic ultrasound to look for clots in his bladder. He remains on Flomax and finasteride. Will give him a voiding trial as soon as were competent hematuria has resolved. Subjective Subjective Date/Time Seen: 08/06/19 07:34 Ongoing hematuria with problematic bladder spasms Review of Systems Cardiovascular: Cardiovascular: Denies chest pain, Denies lightheadedness, Denies palpitations and Denies dyspnea Respiratory: Respiratory: Denies dyspnea Gastrointestinal: Gastrointestinal: Denies diarrhea, Denies nausea and Denies vomiting Genitourinary: Genitourinary: Denies hematuria and Denies dysuria Endocrine: Endocrine: Denies palpitations Exam Const: General: no acute distress Resp: Effort & Inspection: normal respiratory effort GI: Inspection: non-distended GI Palp: No abdominal tenderness and No Guarding due to palpation present (GI) Auscultation: normal bowel sounds Objective Data Vital Signs Vital Signs: Vital Signs - 24 hr 08/05/19 08:00 08/05/19 09:32 08/05/19 10:00 Temperature 97.3 F L Pulse Rate 133 H 125 H 134 H Respiratory Rate 24 H Blood Pressure 137/87 Pulse Oximetry 94 08/05/19 11:18 08/05/19 12:00 08/05/19 14:00 Temperature 97.8 F Pulse Rate 111 H 111 H 109 H Respiratory Rate 22 H 22 H Blood Pressure 98/63 L Pulse Oximetry 91 93 08/05/19 16:00 08/05/19 17:57 08/05/19 20:00 Temperature 96.8 F L 97.8 F Pulse Rate 91 132 H 124 H Respiratory Rate 20 20 Blood Pressure 118/58 L 101/81 Pulse Oximetry 93 93 08/05/19 21:17 08/05/19 22:00 08/05/19 23:48 Temperature 98.0 F Pulse Rate 132 H 124 H 120 H Respiratory Rate 20 Blood Pressure 117/78 Pulse Oximetry 97 08/06/19 00:00 08/06/19 01:58 08/06/19 04:00 Temperature Pulse Rate 102 H 121 H 101 H Respiratory Rate 20 20 Blood Pressure Pulse Oximetry 97 97 08/06/19 05:00 08/06/19 05:33 Temperature 97.9 F Pulse Rate 123 H 114 H Respiratory Rate 22 H Blood Pressure 112/62 Pulse Oximetry 95 Intake/Output Intake/Output: Intake & Output 08/03/19 08/04/19 08/05/19 08/06/19 23:59 23:59 23:59 23:59 Intake Total 660 1405 300 Output Total 24031 3272 8824 Balance -10890 -827 -8361 Meds/Results Medications: Active Medications Generic Name Dose Route Start Last Admin Trade Name Freq PRN Reason Stop Dose Admin Acetaminophen 650 mg 08/03/19 20:01 08/06/19 02:31 Tylenol Tablet PO 650 mg Q4H PRN Administration Mild Pain (1-3) or Fever Hydrocodone Bitart/Acetaminophen 1 tab 08/03/19 20:02 08/05/19 21:19 [place] 10-325 Mg PO 1 tab Q8H PRN Administration pain 7-10 Al Hydrox/Mg Hydrox/Simethicone 30 ml 08/03/19 20:01 08/04/19 20:24 Mylanta PO 30 ml QID PRN Administration Dyspepsia Apixaban 5 mg 08/03/19 20:25 08/05/19 18:12 Eliquis PO Not Given BID GENTRY Finasteride 5 mg 08/04/19 09:00 08/05/19 09:32 Proscar PO 5 mg QAM GENTRY Administration Furosemide 40 mg 08/04/19 17:00 08/05/19 18:11 Lasix Inj IV PUSH 40 mg BID GENTRY Administration Amiodarone HCl/Dextrose 360 mg in 200 mls @ 16.667 mls/hr 08/05/19 17:00 08/06/19 00:15 Nexterone 360 Mg/D5w 200 Ml IV CONT 0.5 mg/min .Q12H GENTRY 16.7 mls/hr Administration 0.5 MG/MIN Magnesium Hydroxide 30 ml 08/03/19 20:01 Milk Of Magnesia PO DAILY PRN Constipation Melatonin 3 mg 08/04/19 22:35 08/05/19 21:18 Melatonin PO 3 mg HS GENTRY Administration Metoprol
[2019-08-06] MEDS: FINASTERIDE 5 MG TABLET PO (08:13)
[2019-08-06] MEDS: METOPROLOL TARTRATE 50 MG TAB PO ×3 (08:13→20:09)
[2019-08-06] MEDS: POTASSIUM CHLORIDE 20 MEQ TABLET 40 MEQ PO (08:13)
[2019-08-06] MEDS: FUROSEMIDE INJ 40 MG/4 ML VIAL IV PUSH ×2 (08:14→17:36)
--- NOTE | 2019-08-06 09:01 | PM.IMPN ---
Progress Note: A&P Assessment and Plan (1) Atrial fibrillation with rapid ventricular response: Code(s): I48.91 - Unspecified atrial fibrillation Status: Acute Assessment and Plan: Possibly secondary to acute CHF exacerbation vs ongoing causing worsened LV dysfunction. Echo with global LV dysfunction, EF about 25% RVR difficult to control with medications 08/04 apixaban resumed in anticipation of possible cardioversion 08/05 08/04 IV amiodarone per cardiology 08/05 apixaban held when he had further bleeding, Renal U/s w/o mass and w/ debris in bladder (2) Acute exacerbation of CHF (congestive heart failure): Code(s): I50.9 - Heart failure, unspecified Status: Acute Assessment and Plan: Fluid restriction IV furosemide and PO KCL (3) Elevated troponin: Code(s): R79.89 - Other specified abnormal findings of blood chemistry Status: Acute Assessment and Plan: Appears due to afib/rvr No ACS (4) HTN (hypertension): Code(s): I10 - Essential (primary) hypertension Status: Chronic Assessment and Plan: Monitor on current regimen (5) Urinary retention: Code(s): R33.9 - Retention of urine, unspecified Status: Acute Assessment and Plan: Sx's c/w prostatic hypertrophy, which may be source of bleeding as well (6) Gross hematuria: Code(s): R31.0 - Gross hematuria Status: Acute Assessment and Plan: Plan per urology Subjective Date/time seen: 08/06/19 09:01 Interval history: Admitted 08/02 with CHF, afib RVR, urinary retention. Plas[place] placed by urology 08/03 but with bleeding. Apixaban held. CBI cleared. 08/03 no sob at rest. 08/05 recurrent gross hematuria in plasencia and resumed CBI Hx chronic urinary frequency and dribbling. No GI issues. Denied cp, other bleeding. Review of Systems Review of Systems: All systems reviewed & are unremarkable except as noted in HPI and below Exam Narrative: Exam Narrative: HEENT: EOMI, PERRL, sclerae nonicteric, pharyngeal mucosa pink and intact NECK: No JVD CHEST: Clear to auscultation. Normal effort. HEART: NL S1/S2, irregular, tachycardic, no murmur ABDOMEN: BS+, soft, nontender, no mass, no bruits EXTREMITIES: nonpitting edema bilateral LEs NEUROLOGIC: CN intact and symmetric to inspection. MUSCULOSKELETAL: Tone and strength symmetric. PSYCH: Alert. Oriented to person, place, and time Objective Data Vital Signs Vital Signs: Vital Signs - 24 hr 08/05/19 09:32 08/05/19 10:00 08/05/19 11:18 Temperature 97.8 F Pulse Rate 125 H 134 H 111 H Respiratory Rate 22 H Blood Pressure 98/63 L Pulse Oximetry 91 08/05/19 12:00 08/05/19 14:00 08/05/19 16:00 Temperature 96.8 F L Pulse Rate 111 H 109 H 91 Respiratory Rate 22 H 20 Blood Pressure 118/58 L Pulse Oximetry 93 93 08/05/19 17:57 08/05/19 20:00 08/05/19 21:17 Temperature 97.8 F Pulse Rate 132 H 124 H 132 H Respiratory Rate 20 Blood Pressure 101/81 Pulse Oximetry 93 08/05/19 22:00 08/05/19 23:48 08/06/19 00:00 Temperature 98.0 F Pulse Rate 124 H 120 H 102 H Respiratory Rate 20 20 Blood Pressure 117/78 Pulse Oximetry 97 97 08/06/19 01:58 08/06/19 04:00 08/06/19 05:00 Temperature 97.9 F Pulse Rate 121 H 101 H 123 H Respiratory Rate 20 22 H Blood Pressure 112/62 Pulse Oximetry 97 95 08/06/19 05:33 08/06/19 08:13 Temperature Pulse Rate 114 H 126 H Respiratory Rate Blood Pressure Pulse Oximetry Intake/Output Intake/Output: Intake & Output 08/03/19 08/04/19 08/05/19 08/06/19 23:59 23:59 23:59 23:59 Intake Total 660 1405 300 Output Total 62069 9790 7860 Balance -06922 -785 -7794 Meds/Results Medications: Active Medications Generic Name Dose Route Start Last Admin Trade Name Freq PRN Reason Stop Dose Admin Acetaminophen 650 mg 08/03/19 20:01 08/06/19 02:31 Tylenol Tablet PO 650 mg Q4H PRN Administration Mild Pain (
--- NOTE | 2019-08-06 11:41 | PM.PNCARD ---
Progress Note: A&P Assessment and Plan (1) Atrial fibrillation with rapid ventricular response: Code(s): I48.91 - Unspecified atrial fibrillation Status: Acute Assessment and Plan: uncertain if this is paroxysmal or chronic atrial fibrillation. I suspect chronic atrial fibrillation. His ejection fraction is severely reduced. This may be tachycardic induced but he certainly may have ischemia also. Continue amiodarone drip. Heart rate is better but still elevated. Will also increase his metoprolol tartrate to 50 mg p.o. t.i.d.. Norbertois is on hold as he read blood yesterday. (2) Acute exacerbation of CHF (congestive heart failure): Code(s): I50.9 - Heart failure, unspecified Status: Acute Assessment and Plan: Continue furosemide to 40 mg IV q.12 hours. Will initiate Entresto 24/26 mg 1 tablet p.o. b.i.d. Replace potassium 40 mEq p.o. x1 (3) HTN (hypertension): Code(s): I10 - Essential (primary) hypertension Status: Chronic Assessment and Plan: Better controlled (4) Elevated troponin: Code(s): R79.89 - Other specified abnormal findings of blood chemistry Status: Acute Assessment and Plan: unlikely related to ACS (5) Gross hematuria: Code(s): R31.0 - Gross hematuria Status: Acute Assessment and Plan: [place] in place and undergoing bladder irrigation Subjective Date/time seen: 08/06/19 11:41 Interval history: Admitted 08/02 with CHF, afib RVR, urinary retention. Date of service 08/05 no sob at rest. Edema is better. No chest pain. Review of Systems Review of Systems: All systems reviewed & are unremarkable except as noted in HPI and below Constitutional: Constitutional: Denies chills, Denies excessive sweating and Denies headache(s) Eyes: Eyes: Denies photophobia ENT: Denies headache(s), Denies lip swelling, Denies epistaxis, Denies nasal congestion and Denies neck pain Cardiovascular: Cardiovascular: Denies chest pain and Reports dyspnea Respiratory: Respiratory: Reports dyspnea Gastrointestinal: Gastrointestinal: Denies abdominal pain Genitourinary: Genitourinary: Reports hematuria Musculoskeletal: Musculoskeletal: Denies neck pain Integumentary/Breasts: Skin/Breast: Denies unusual bruising Neurologic: Denies confusion and Denies headache(s) Psychiatric: Psychiatric: Denies anxiety and Denies confusion Endocrine: Endocrine: Denies excessive sweating Hematologic/Lymphatic: Hematologic/Lymphatic: Denies easy bruising Allergic/Immunologic: Allergic/Immunologic: Denies GI upset with certain foods and Denies lip swelling Exam Narrative: Exam Narrative: Alert and oriented Const: General: comfortable; No confusion Orientation/consciousness: No confusion HENMT: General nose exam: no epistaxis Eyes: Sclera: sclerae normal Direct Ophthalmoscopy: No photophobia Neck: Neck: supple and no JVD Chest: Other: no chest wall pain to palpation Resp: Auscultation: rales Cardio: Rate: tachycardic Rhythm: abnormal rhythm : Other: pink urine noted via catheter Urinary Catheter: Urinary Catheter: urine pink Skin: Wounds: no wounds Neuro: General: No confusion Cognition (Neuro): normal cognition Speech: normal speech Extrem: General: edema and pedal edema Psych: Mental Status: mental status grossly normal Affect: normal affect Objective Data Vital Signs Vital Signs: Vital Signs - 24 hr 08/05/19 12:00 08/05/19 14:00 08/05/19 16:00 Temperature 36.0 C L Pulse Rate 111 H 109 H 91 Respiratory Rate 22 H 20 Blood Pressure 118/58 L Pulse Oximetry 93 93 08/05/19 17:57 08/05/19 20:00 08/05/19 21:17 Temperature 36.6 C Pulse Rate 132 H 124 H 132 H Respiratory Rate 20 Blood Pressure 101/81 Pulse Oximetry 93 08/05/19 22:00 08/05/19 23:48 08/06/19 00:00 Temperature 36.7 C Pulse Rate 124 H 120 H 102 H Respiratory Rate 20 20 Blood Pressure 1
[2019-08-06] MEDS: SACUBITRIL/VALSARTAN 12-13 MG TABLET 1 TAB PO ×2 (12:17→20:10)
[2019-08-06] MEDS: POTASSIUM CHLORIDE 20 MEQ TABLET.ER 40 MEQ PO (16:21)
[2019-08-06] MEDS: MAG HYDROX/AL HYDROX/SIMETH 30 ML UDC PO (17:44)
[2019-08-06] MEDS: TOLNAFTATE 1% POWDER 45 GM BTL 1 APPLIC TOPICAL (20:08)
[2019-08-06] MEDS: MELATONIN 3 MG TABLET PO (20:08)
[2019-08-06] MEDS: TERAZOSIN HCL 1 MG CAPSULE 4 MG PO (20:09)
[2019-08-06] MEDS: OXYBUTYNIN CHLORIDE 5 MG TABLET PO (20:11)
[2019-08-07] VITALS (26 sets, daily range): BP systolic 90–124; BP diastolic 56–88; PULSE 56–142; RESP 12–24; TEMP 36.2–37.2; O2SAT 90–100
[2019-08-07] MEDS: ACETAMINOPHEN 325 MG TABLET 650 MG PO (03:39)
[2019-08-07 04:52] LABS: Hematocrit 34.5 % (42.0-52.0); Hemoglobin 11.2 g/dL (14.0-18.0); Mean Corpuscular HGB Conc 32.5 g/dl (32-36); Mean Corpuscular Hemoglobin 30.9 pg (26-34); Mean Corpuscular Volume 95.3 fl (80-100); Mean Platelet Volume 11.3 fl (7.4-10.4); Platelet Count Result 251 k/mm3 (150-375); Red Blood Count 3.62 M/mm3 (4.6-6.20); Red Cell Distribution Width 15.2 % (11.5-14.5); White Blood Count 11.9 K/mm3 (4.5-10.0)
[2019-08-07 05:05] LABS: Blood Urea Nitrogen 21 mg/dL (9-20); Carbon Dioxide 31 mmol/L (22-30); Chloride 101 mmol/L (98-107); Estimated CRCL calculation 74 ml/min; Estimated Glomerular Filt Rate > 60; Glucose 105 mg/dL (75-110); Potassium 3.5 mmol/L (3.4-5.0); Sodium 139 mmol/L (137-145)
[2019-08-07] MEDS: METOPROLOL TARTRATE 50 MG TAB PO ×3 (05:23→21:07)
[2019-08-07] MEDS: OXYBUTYNIN CHLORIDE 5 MG TABLET PO (05:23)
--- NOTE | 2019-08-07 07:33 | WPDUROPN2 ---
Progress Note: A&P Assessment and Plan (1) Gross hematuria: Code(s): R31.0 - Gross hematuria Status: Acute (2) Urinary retention: Code(s): R33.9 - Retention of urine, unspecified Status: Acute Assessment and Plan: Cystoscopy, clot evacuation today. Continue Finasteride and Floxam but stop Oxybutynin in anticipation of voiding trial soon. Subjective Subjective Date/Time Seen: 08/07/19 07:33 Intermittent bladder spasms persist. Urine genarally clear Review of Systems Cardiovascular: Cardiovascular: Denies chest pain, Denies lightheadedness, Denies palpitations and Denies dyspnea Respiratory: Respiratory: Denies dyspnea Gastrointestinal: Gastrointestinal: Denies diarrhea, Denies nausea and Denies vomiting Genitourinary: Genitourinary: Denies hematuria and Denies dysuria Endocrine: Endocrine: Denies palpitations Exam Const: General: no acute distress Resp: Effort & Inspection: normal respiratory effort GI: Inspection: non-distended GI Palp: No abdominal tenderness and No Guarding due to palpation present (GI) Auscultation: normal bowel sounds Objective Data Vital Signs Vital Signs: Vital Signs - 24 hr 08/06/19 08:00 08/06/19 08:13 08/06/19 09:52 Temperature 96.8 F L Pulse Rate 109 H 126 H 119 H Respiratory Rate 20 Blood Pressure 118/82 Pulse Oximetry 97 08/06/19 12:00 08/06/19 13:50 08/06/19 14:00 Temperature 97.2 F L Pulse Rate 63 130 H 127 H Respiratory Rate 19 Blood Pressure 98/53 L Pulse Oximetry 96 08/06/19 16:00 08/06/19 17:54 08/06/19 20:00 Temperature 96.9 F L 97.5 F L Pulse Rate 97 125 H 119 H Respiratory Rate 19 18 Blood Pressure 105/65 98/64 L Pulse Oximetry 95 96 08/06/19 20:09 08/06/19 22:00 08/06/19 23:56 Temperature Pulse Rate 122 H 118 H 122 H Respiratory Rate 18 Blood Pressure Pulse Oximetry 96 08/07/19 00:00 08/07/19 02:00 08/07/19 04:00 Temperature 98.1 F 98.2 F Pulse Rate 118 H 124 H 112 H Respiratory Rate 20 22 H Blood Pressure 90/70 L 124/85 Pulse Oximetry 96 94 08/07/19 05:23 08/07/19 05:33 Temperature Pulse Rate 128 H 122 H Respiratory Rate Blood Pressure Pulse Oximetry Intake/Output Intake/Output: Intake & Output 08/04/19 08/05/19 08/06/19 08/07/19 23:59 23:59 23:59 23:59 Intake Total 660 1405 820 572 Output Total 19407 1850 2870 350 [facility] [phone] Meds/Results Medications: Active Medications Generic Name Dose Route Start Last Admin Trade Name Freq PRN Reason Stop Dose Admin Acetaminophen 650 mg 08/03/19 20:01 08/07/19 03:39 Tylenol Tablet PO 650 mg Q4H PRN Administration Mild Pain (1-3) or Fever Hydrocodone Bitart/Acetaminophen 1 tab 08/06/19 16:42 08/06/19 21:51 [place] 10-325 Mg PO 1 tab Q4H PRN Administration pain 7-10 Al Hydrox/Mg Hydrox/Simethicone 30 ml 08/03/19 20:01 08/06/19 17:44 Mylanta PO 30 ml QID PRN Administration Dyspepsia Apixaban 5 mg 08/03/19 20:25 08/05/19 18:12 Eliquis PO Not Given BID GENTRY Finasteride 5 mg 08/04/19 09:00 08/06/19 08:13 Proscar PO 5 mg QAM GENTRY Administration Furosemide 40 mg 08/04/19 17:00 08/06/19 17:36 Lasix Inj IV PUSH 40 mg BID GENTRY Administration Amiodarone HCl/Dextrose 360 mg in 200 mls @ 16.667 mls/hr 08/05/19 17:00 08/07/19 05:37 Nexterone 360 Mg/D5w 200 Ml IV CONT 0.5 mg/min .Q12H GENTRY 16.7 mls/hr Infusion 0.5 MG/MIN Magnesium Hydroxide 30 ml 08/03/19 20:01 Milk Of Magnesia PO DAILY PRN Constipation Melatonin 3 mg 08/04/19 22:35 08/06/19 20:08 Melatonin PO 3 mg HS GENTRY Administration Metoprolol Tartrate 50 mg 08/06/19 14:00 08/07/19 05:23 Lopressor PO 50 mg Q8HR GENTRY Administration Oxybutynin Chloride 5 mg 08/06/19 22:00 08/07/19 05:23 Ditropan PO 5 mg Q8HR GENTRY Administration Potassium Chloride 40 meq 08/06/19 17:00 03
--- NOTE | 2019-08-07 09:35 | PM.IMPN ---
Progress Note: A&P Assessment and Plan (1) Atrial fibrillation with rapid ventricular response: Code(s): I48.91 - Unspecified atrial fibrillation Status: Acute Assessment and Plan: Possibly secondary to acute CHF exacerbation vs ongoing causing worsened LV dysfunction. Echo with global LV dysfunction, EF about 25% RVR difficult to control with medications 08/04 apixaban resumed in anticipation of possible cardioversion 08/05 08/04 IV amiodarone per cardiology 08/05 apixaban held when he had further bleeding, Renal U/s w/o mass and w/ debris in bladder 08/06 await urology evaluation prior to resuming apixaban (2) Acute exacerbation of CHF (congestive heart failure): Code(s): I50.9 - Heart failure, unspecified Status: Acute Assessment and Plan: Fluid restriction IV furosemide and PO KCL (3) Elevated troponin: Code(s): R79.89 - Other specified abnormal findings of blood chemistry Status: Acute Assessment and Plan: Appears due to afib/rvr No ACS (4) HTN (hypertension): Code(s): I10 - Essential (primary) hypertension Status: Chronic Assessment and Plan: Monitor on current regimen (5) Urinary retention: Code(s): R33.9 - Retention of urine, unspecified Status: Acute Assessment and Plan: Sx's c/w prostatic hypertrophy, which may be source of bleeding as well (6) Gross hematuria: Code(s): R31.0 - Gross hematuria Status: Acute Assessment and Plan: Plan per urology Subjective Date/time seen: 08/07/19 09:35 Interval history: Admitted 08/02 with CHF, afib RVR, urinary retention. Plasencia placed by urology 08/03 but with bleeding. Apixaban held. CBI cleared. 08/03 no sob at rest. 08/05 recurrent gross hematuria in plasencia and resumed CBI 08/06 urine clearing. Only c/o is bladder spasms, helped very little by oxybutynin. Hx chronic urinary frequency and dribbling. No GI issues. Denied cp, other bleeding. Review of Systems Review of Systems: All systems reviewed & are unremarkable except as noted in HPI and below Exam Narrative: Exam Narrative: HEENT: EOMI, PERRL, sclerae nonicteric, pharyngeal mucosa pink and intact NECK: No JVD CHEST: Clear to auscultation. Normal effort. HEART: NL S1/S2, irregular, tachycardic, no murmur ABDOMEN: BS+, soft, nontender, no mass, no bruits EXTREMITIES: nonpitting edema bilateral LEs NEUROLOGIC: CN intact and symmetric to inspection. MUSCULOSKELETAL: Tone and strength symmetric. PSYCH: Alert. Oriented to person, place, and time Objective Data Vital Signs Vital Signs: Vital Signs - 24 hr 08/06/19 09:52 08/06/19 12:00 08/06/19 13:50 Temperature 97.2 F L Pulse Rate 119 H 63 130 H Respiratory Rate 19 Blood Pressure 98/53 L Pulse Oximetry 96 08/06/19 14:00 08/06/19 16:00 08/06/19 17:54 Temperature 96.9 F L Pulse Rate 127 H 97 125 H Respiratory Rate 19 Blood Pressure 105/65 Pulse Oximetry 95 08/06/19 20:00 08/06/19 20:09 08/06/19 22:00 Temperature 97.5 F L Pulse Rate 119 H 122 H 118 H Respiratory Rate 18 Blood Pressure 98/64 L Pulse Oximetry 96 08/06/19 23:56 08/07/19 00:00 08/07/19 02:00 Temperature 98.1 F Pulse Rate 122 H 118 H 124 H Respiratory Rate 18 20 Blood Pressure 90/70 L Pulse Oximetry 96 96 08/07/19 04:00 08/07/19 05:23 08/07/19 05:33 Temperature 98.2 F Pulse Rate 112 H 128 H 122 H Respiratory Rate 22 H Blood Pressure 124/85 Pulse Oximetry 94 08/07/19 08:00 Temperature 97.4 F L Pulse Rate 56 L Respiratory Rate 20 Blood Pressure 114/77 Pulse Oximetry 97 Intake/Output Intake/Output: Intake & Output 08/04/19 08/05/19 08/06/19 08/07/19 23:59 23:59 23:59 23:59 Intake Total 660 1405 820 572 Output Total [id number] [address]14 [facility] [phone] 222 Meds/Results Medications: Active Medications Generic Name Dose Route Start Last Admin Trade Name Freq PRN Reason Stop Dose Ad
[2019-08-07] MEDS: AMIODARONE 360 MG/D5W 200 ML 360 MG/200 ML BAG 16.7 MG IV CONT ×2 (10:00→22:35)
[2019-08-07] MEDS: LACTATED RINGERS 1,000 ML 30 ML IV CONT (10:00)
--- NOTE | 2019-08-07 10:19 | WPDANESEPPF ---
Anes - Initial Pre Proc Eval Procedure: Operation Date: 08/07/19 12:00 Proposed Procedures p Cystoscopy, Evacuation Bladder Clots - Fausto Collins MD Date/Time: 08/07/19 10:19 Surgeon: Ruddy Blakely MD Pre Op Diagnosis: CHF/ N STEMI Patient Data Age: 79 Gender: M Height: 5 ft 9 in Weight: 124 kg Last Vital Signs Temp 36.3 C L 08/07/19 08:00 Pulse 56 L 08/07/19 08:00 Resp 20 08/07/19 08:00 BP 114/77 08/07/19 08:00 Pulse Ox 97 08/07/19 08:00 Allergies Allergy/AdvReac Type Severity Reaction Status Date / Time No Known Allergies Allergy Unverified 12/16/15 09:15 Home Medications Medication Instructions Recorded Confirmed Type diltiazem HCl 240 mg 240 mg PO DAILY #30 cap 04/27/19 08/03/19 Rx capsule,extended release 24 hr furosemide 40 mg tablet 40 mg PO QAM #30 tablet 04/27/19 08/03/19 Rx apixaban 5 mg tablet 5 mg PO BID #60 tablet 06/01/19 08/03/19 Rx oxybutynin chloride 5 mg PO HS 08/03/19 08/03/19 History potassium chloride 10 meq PO DAILY 08/03/19 08/03/19 History terazosin 2 mg PO HS 08/03/19 08/03/19 History hydrocodone 10 mg-acetaminophen 1 tablet PO Q8H PRN #90 tablet 08/04/19 08/04/19 Rx 325 mg tablet Laboratory Tests 08/07/19 08/07/19 04:37 04:37 WBC 11.9 K/mm3 H K/mm3 (4.5-10.0) RBC 3.62 M/mm3 L M/mm3 (4.6-6.20) Hgb 11.2 g/dL L g/dL (14.0-18.0) Hct 34.5 % L % (42.0-52.0) MCV 95.3 fl fl (80-100) MCH 30.9 pg pg (26-34) MCHC 32.5 g/dl g/dl (32-36) RDW 15.2 % H % (11.5-14.5) Plt Count 251 k/mm3 k/mm3 (150-375) MPV 11.3 fl H fl (7.4-10.4) Sodium 139 mmol/L mmol/L (137-145) Potassium 3.5 mmol/L mmol/L (3.4-5.0) Chloride 101 mmol/L mmol/L (98-107) Carbon Dioxide 31 mmol/L H mmol/L (22-30) BUN 21 mg/dL H mg/dL (9-20) Creatinine 0.90 mg/dL mg/dL (0.7-1.3) Estim Creat Clear Calc 74 ml/min ml/min Estimated GFR > 60 (59 - ) Glucose 105 mg/dL mg/dL (75-110) Calcium 8.0 mg/dL L mg/dL (8.4-10.2) Magnesium 2.0 mg/dL mg/dL (1.6-2.3) Patient hx anesthesia problems: none Family hx anesthesia problems: none PMFSH Past Medical History Medical History A-fib HTN (hypertension) Obesity (BMI 30-39.9) Osteoarthritis involving multiple joints on both sides of body Surgical History Surgical History Hx of cataract removal with insertion of prosthetic lens Family History Family History Mother Family history of type 2 diabetes mellitus Sister Hypertension Father Family history of coronary artery disease Other Family history of cardiovascular disease Social History Social History Smoking packs per day: 3 Smoking cigarettes per day: 60.0 Years smoked: 25 Smoking pack-years: 75.00 Smoking status: Former smoker Tobacco type: cigarettes Smoking end date: 05/20/88 Alcohol intake: former Drinks per week: 5 Substance use: never Gender identity (if verbalized by the patient): Male Spiritual care concerns: No Agree to blood products: Yes Anes - Eval Final PreProcedure Day of Procedure 08/07/19 10:19 Patient weight: morbidly obese Heart: irregular rhythm Lungs: decreased breath sounds Airway: Mallampati scale class III Neurological: other (alert) Last oral intake: >/= 8 hours ASA classification: IV Emergent: yes Anesthetic plan: proceed Anesthesia type and monitoring: general LMA and standard monitoring Informed Consent: The patient's anesthetic plan and its attendant risks and benefits were discussed with the patient/family/POA. Questions were solicited and answers provided to the satisfaction of the patient/family/POA.
[2019-08-07] MEDS: LIDOCAINE HCL 2% GEL UROJET 10 ML PKG MUCOUS MEM (11:10)
[2019-08-07] MEDS: ceFAZolin SODIUM 1 GM VIAL 3 GM IV PUSH (11:13)
--- NOTE | 2019-08-07 11:34 | P.OP_ITS ---
Procedure Note - Detailed Date of procedure: 08/07/19 Pre-op diagnosis: CHF/ N STEMI Post-op diagnosis: same Procedure performed: Cystoscopy, clot evacuation. Prostate cauterization. Description of procedure: The patient is brought to the operative suite where he is prepped and draped in a routine sterile fashion while in a dorsal lithotomy position. 2% lidocaine jelly is introducing intraurethrally and allowed to stand for an appropriate period of time. Systemic sedation is administered by the anesthesia department. Cystoscopy is undertaken with a 19F rigid cystoscope. There were no urethral strictures. The prostatic urethral e stimated length was 4-5cm. There was marked obstruction of the prostatic urethra with moderate median lobe enlargement. There is a large clots floating in the dependent portion of the bladder. I removed the flexible cystoscope and placed a 27F resectoscope sheath. The large clot was evacuated with a TUMI syringe. The bladder mucosa showed no areas of suspicious hyperemia and there were no neoplasms. There was a single, orthotopic ureteral orifice bilaterally. There was oozing of blood from the bladder neck which I cauterized extensively with a rollerball electrode. At this point the resectescope was removed and a 24F hematuria catheter was placed to continuous irrigation. Efflux from the catheter was clear at the termination of the procedure. The patient was taken to the recovery room having tolerated the procedure well. Anesthesia: GLMA Surgeon: Fausto Collins MD Estimated blood loss (mL): 0 Drains: Yes (22F hematuria catheter) Packing: No Pathology: none sent Complications: No immediate complications Condition: stable Disposition: PACU
[2019-08-07] MEDS: HYOSCYAMINE SULFATE 0.125 MG TABLET PO ×3 (12:15→21:10)
--- NOTE | 2019-08-07 12:41 | SUR.PHASEI ---
1240: report given to PRESLEY Shaw.
--- NOTE | 2019-08-07 14:23 | PM.PNCARD ---
Progress Note: A&P Additional Plan Elderly gentleman with atrial fib with RVR. Heart rate control has been somewhat challenging. Due to low ejection fraction do not wish to use diltiazem. Given the fact that he is on both beta subha and amiodarone still with somewhat rapid ventricular response I am going to add digoxin to the regimen at this time. He cannot be anticoagulated as he developed gross hematuria when apixaban has been administered twice during this hospitalization we will no longer resume it further for C able future Time Spent With Patient Time with patient: 15 - 25 minutes Subjective Date/time seen: Date of service: 08/07/19 14:23 Interval history: Follow-up visit for management of atrial fib with RVR. Patient's primary complaint now is pain in the region of his penis related to continuous bladder irrigation catheter Still has AFib with mildly rapid ventricular response despite beta-subha and IV amiodarone. Lab dated demonstrates creatinine level is normal Exam Const: General: no acute distress and uncomfortable Other: Uncomfortable related to bladder irrigation HENMT: Mouth: Yes moist mucous membranes Eyes: Sclera: sclerae normal Pupils: Equal, round and reactive pupils present Neck: Neck: supple and no JVD Thyroid: thyroid normal Resp: Effort & Inspection: normal respiratory effort Auscultation: clear to auscultation bilaterally Cardio: Rate: tachycardic Rhythm: abnormal rhythm irregularly irregular GI: Auscultation: normal bowel sounds Urinary Catheter: Urinary Catheter: patent and draining and urine pink Skin: General skin exam: normal color Neuro: Cognition (Neuro): normal cognition Extrem: General: normal to inspection Objective Data Vital Signs Vital Signs: Vital Signs - 24 hr 08/06/19 16:00 08/06/19 17:54 08/06/19 20:00 Temperature 36.1 C L 36.4 C L Pulse Rate 97 125 H 119 H Respiratory Rate 19 18 Blood Pressure 105/65 98/64 L Pulse Oximetry 95 96 08/06/19 20:09 08/06/19 22:00 08/06/19 23:56 Temperature Pulse Rate 122 H 118 H 122 H Respiratory Rate 18 Blood Pressure Pulse Oximetry 96 08/07/19 00:00 08/07/19 02:00 08/07/19 04:00 Temperature 36.7 C 36.8 C Pulse Rate 118 H 124 H 112 H Respiratory Rate 20 22 H Blood Pressure 90/70 L 124/85 Pulse Oximetry 96 94 08/07/19 05:23 08/07/19 05:33 08/07/19 08:00 Temperature 36.3 C L Pulse Rate 128 H 122 H 56 L Respiratory Rate 20 Blood Pressure 114/77 Pulse Oximetry 97 08/07/19 10:00 08/07/19 11:34 08/07/19 11:50 Temperature 37.2 C 36.2 C L Pulse Rate 101 H 105 H 106 H Respiratory Rate 20 23 H 14 Blood Pressure 94/61 L 92/67 L 103/75 Pulse Oximetry 94 93 90 08/07/19 12:05 08/07/19 12:20 08/07/19 12:35 Temperature Pulse Rate 118 H 112 H 111 H Respiratory Rate 14 16 12 Blood Pressure 122/80 107/67 100/67 Pulse Oximetry 94 95 94 08/07/19 12:50 08/07/19 13:05 08/07/19 13:15 Temperature Pulse Rate 104 H 111 H 110 H Respiratory Rate 12 17 12 Blood Pressure 118/79 95/56 L 107/88 Pulse Oximetry 93 95 94 08/07/19 13:39 Temperature Pulse Rate 110 H Respiratory Rate 18 Blood Pressure 93/68 L Pulse Oximetry 98 Intake/Output Intake/Output: Intake & Output 08/04/19 08/05/19 08/06/19 08/07/19 23:59 23:59 23:59 23:59 Intake Total 660 1405 820 972 Output Total 00341 1850 4750 [address] [phone] Meds/Results Medications: Active Medications Generic Name Dose Route Start Last Admin Trade Name Freq PRN Reason Stop Dose Admin Acetaminophen 650 mg 08/03/19 20:01 08/07/19 03:39 Tylenol Tablet PO 650 mg Q4H PRN Administration Mild Pain (1-3) or Fever Hydrocodone Bitart/Acetaminophen 1 tab 08/06/19 16:42 08/06/19 21:51 [place] 10-325 Mg PO 1 tab Q4H PRN Administration pain 7-10 Al Hydrox/Mg Hydrox/Simethicone 30 ml 08/03/19 20:01 08/06/19 17:44 Mylanta PO 30 ml QID PRN Administration Dyspe
[2019-08-07] MEDS: DIGOXIN 250 MCG TABLET PO (16:48)
[2019-08-07] MEDS: POTASSIUM CHLORIDE 20 MEQ TABLET.ER 40 MEQ PO (16:49)
[2019-08-07] MEDS: TOLNAFTATE 1% POWDER 45 GM BTL 1 APPLIC TOPICAL ×2 (16:49→21:06)
[2019-08-07] MEDS: FUROSEMIDE INJ 40 MG/4 ML VIAL IV PUSH (16:49)
[2019-08-07] MEDS: FINASTERIDE 5 MG TABLET PO (16:50)
[2019-08-07] MEDS: MELATONIN 3 MG TABLET PO (21:06)
[2019-08-07] MEDS: TERAZOSIN HCL 1 MG CAPSULE 4 MG PO (21:06)
[2019-08-07] MEDS: SACUBITRIL/VALSARTAN 12-13 MG TABLET 1 TAB PO (21:06)
[2019-08-08] VITALS (23 sets, daily range): BP systolic 82–104; BP diastolic 55–77; PULSE 104–135; RESP 16–24; TEMP 36.1–37; O2SAT 90–100
[2019-08-08] MEDS: MAG HYDROX/AL HYDROX/SIMETH 30 ML UDC PO (00:32)
[2019-08-08] MEDS: HYOSCYAMINE SULFATE 0.125 MG TABLET PO ×4 (01:02→21:42)
[2019-08-08 05:11] LABS: Hematocrit 34.4 % (42.0-52.0); Hemoglobin 11.1 g/dL (14.0-18.0); Mean Corpuscular HGB Conc 32.3 g/dl (32-36); Mean Corpuscular Hemoglobin 30.8 pg (26-34); Mean Corpuscular Volume 95.6 fl (80-100); Mean Platelet Volume 11.9 fl (7.4-10.4); Platelet Count Result 249 k/mm3 (150-375); Red Cell Distribution Width 15.2 % (11.5-14.5); White Blood Count 12.7 K/mm3 (4.5-10.0)
[2019-08-08 05:30] LABS: Blood Urea Nitrogen 24 mg/dL (9-20); Calcium 8.2 mg/dL (8.4-10.2); Carbon Dioxide 32 mmol/L (22-30); Chloride 101 mmol/L (98-107); Estimated CRCL calculation 64 ml/min; Estimated Glomerular Filt Rate > 60; Glucose 112 mg/dL (75-110); Potassium 3.7 mmol/L (3.4-5.0); Sodium 140 mmol/L (137-145)
[2019-08-08] MEDS: METOPROLOL TARTRATE 50 MG TAB PO ×3 (06:15→21:42)
[2019-08-08] MEDS: SACUBITRIL/VALSARTAN 12-13 MG TABLET 1 TAB PO ×2 (09:04→21:41)
[2019-08-08] MEDS: FUROSEMIDE INJ 40 MG/4 ML VIAL IV PUSH ×2 (09:04→17:53)
[2019-08-08] MEDS: FINASTERIDE 5 MG TABLET PO (09:05)
[2019-08-08] MEDS: DIGOXIN 250 MCG TABLET PO (09:05)
[2019-08-08] MEDS: TOLNAFTATE 1% POWDER 45 GM BTL 1 APPLIC TOPICAL ×2 (09:05→21:44)
[2019-08-08] MEDS: AMIODARONE 360 MG/D5W 200 ML 360 MG/200 ML BAG 16.7 MG IV CONT (10:25)
--- NOTE | 2019-08-08 11:08 | WPDANESPN ---
Anes - Prog Note Post-Op Date/Time: 08/08/19 11:08 Cardiovascular status: normal Respiratory status: normal Airway patency: baseline Mental status: baseline Post-Op hydration status: normal Vital Signs: Last Vital Signs Temp 36.9 C 08/08/19 08:00 Pulse 115 H 08/08/19 10:00 Resp 16 08/08/19 08:00 BP 104/73 08/08/19 08:00 Pulse Ox 91 08/08/19 09:13 I/O: Intake & Output 08/07/19 08/08/19 08/08/19 23:59 07:59 15:59 Intake Total 880 520 310 Output Total 450 1100 Balance 430 -580 310 Laboratory Tests 08/08/19 04:28 08/08/19 04:28 08/08/19 08/08/19 04:28 04:28 WBC 12.7 H RBC 3.60 L Hgb 11.1 L Hct 34.4 L MCV 95.6 MCH 30.8 MCHC 32.3 RDW 15.2 H Plt Count 249 MPV 11.9 H Sodium 140 Potassium 3.7 Chloride 101 Carbon Dioxide 32 H BUN 24 H Creatinine 1.00 Estim Creat Clear Calc 64 Estimated GFR > 60 Glucose 112 H Calcium 8.2 L Post-procedural complaints: none Patient Feedback: Patient satisfied with anesthetic care.
--- NOTE | 2019-08-08 12:12 | PM.IMPN ---
Progress Note: A&P Assessment and Plan (1) Atrial fibrillation with rapid ventricular response: Code(s): I48.91 - Unspecified atrial fibrillation Status: Acute Assessment and Plan: Possibly secondary to acute CHF exacerbation vs ongoing causing worsened LV dysfunction. Echo with global LV dysfunction, EF about 25% RVR difficult to control with medications 08/04 apixaban resumed in anticipation of possible cardioversion 08/05 08/04 IV amiodarone per cardiology 08/05 apixaban held when he had further bleeding, Renal U/s w/o mass and w/ debris in bladder 08/06 cystoscopy with cautery of oozing vessels 08/07 plan to resume apixaban 48 hours post procedure on 08/08. Possible cardioversion on 08/09. (2) Acute exacerbation of CHF (congestive heart failure): Code(s): I50.9 - Heart failure, unspecified Status: Acute Assessment and Plan: Fluid restriction P.o. metoprolol and Entresto IV furosemide and PO KCL (3) Elevated troponin: Code(s): R79.89 - Other specified abnormal findings of blood chemistry Status: Acute Assessment and Plan: Appears due to afib/rvr No ACS (4) HTN (hypertension): Code(s): I10 - Essential (primary) hypertension Status: Chronic Assessment and Plan: Monitor on current regimen (5) Urinary retention: Code(s): R33.9 - Retention of urine, unspecified Status: Acute Assessment and Plan: Sx's c/w prostatic hypertrophy (6) Gross hematuria: Code(s): R31.0 - Gross hematuria Status: Acute Assessment and Plan: Plan per urology Subjective Date/time seen: 08/08/19 12:12 Interval history: Follow-up atrial fibrillation with RVR. Gross hematuria. No further bleeding since procedure yesterday. Cystoscopy with cautery. Denied chest pain or shortness of breath. No GI or issues otherwise. No abdominal pain and nausea. Tolerating diet. Edema improved. Review of Systems Review of Systems: All systems reviewed & are unremarkable except as noted in HPI and below Exam Narrative: Exam Narrative: HEENT: EOMI, PERRL, sclerae nonicteric, pharyngeal mucosa pink and intact NECK: No JVD CHEST: Clear to auscultation. Normal effort. HEART: NL S1/S2, irregular, tachycardic, no murmur ABDOMEN: BS+, soft, nontender, no mass, no bruits EXTREMITIES: nonpitting edema bilateral LEs NEUROLOGIC: CN intact and symmetric to inspection. MUSCULOSKELETAL: Tone and strength symmetric. PSYCH: Alert. Oriented to person, place, and time Objective Data Vital Signs Vital Signs: Vital Signs - 24 hr 08/07/19 12:20 08/07/19 12:35 08/07/19 12:50 Temperature Pulse Rate 112 H 111 H 104 H Respiratory Rate 16 12 12 Blood Pressure 107/67 100/67 118/79 Pulse Oximetry 95 94 93 08/07/19 13:05 08/07/19 13:15 08/07/19 13:39 Temperature Pulse Rate 111 H 110 H 110 H Respiratory Rate 17 12 18 Blood Pressure 95/56 L 107/88 93/68 L Pulse Oximetry 95 94 98 08/07/19 14:00 08/07/19 16:00 08/07/19 16:01 Temperature 97.3 F L 97.6 F Pulse Rate 123 H 131 H 125 H Respiratory Rate 18 24 H 18 Blood Pressure 112/74 119/83 Pulse Oximetry 100 97 100 08/07/19 16:48 08/07/19 18:00 08/07/19 20:00 Temperature 97.3 F L Pulse Rate 128 H 133 H 116 H Respiratory Rate 18 Blood Pressure 103/67 Pulse Oximetry 97 08/07/19 21:07 08/07/19 22:00 08/08/19 00:00 Temperature 96.9 F L Pulse Rate 116 H 123 H 124 H Respiratory Rate 24 H Blood Pressure 101/64 Pulse Oximetry 98 08/08/19 02:00 08/08/19 03:50 08/08/19 04:00 Temperature 97.5 F L Pulse Rate 113 H 114 H 114 H Respiratory Rate 20 20 Blood Pressure 103/73 Pulse Oximetry 90 90 08/08/19 06:00 08/08/19 06:15 08/08/19 08:00 Temperature 98.4 F Pulse Rate 118 H 121 H 115 H Respiratory Rate 16 Blood Pressure 104/73 Pulse Oximetry 96 08/08/19 09:05 08/08/19 09:13 08/08/19 10:00 Temperature Pulse Rate 111 H 115 H Respiratory Rate
[2019-08-08] MEDS: AMIODARONE HCL 200 MG TABLET 400 MG PO (14:15)
[2019-08-08] MEDS: POTASSIUM CHLORIDE 20 MEQ TABLET.ER 40 MEQ PO ×2 (14:16→17:52)
[2019-08-08] MEDS: MELATONIN 3 MG TABLET PO (21:41)
[2019-08-09] VITALS (24 sets, daily range): BP systolic 94–120; BP diastolic 56–84; PULSE 73–128; RESP 14–20; TEMP 36.2–36.6; O2SAT 95–100
[2019-08-09 05:06] LABS: Hematocrit 34.1 % (42.0-52.0); Hemoglobin 10.7 g/dL (14.0-18.0); Mean Corpuscular HGB Conc 31.4 g/dl (32-36); Mean Corpuscular Hemoglobin 30.7 pg (26-34); Mean Corpuscular Volume 97.7 fl (80-100); Mean Platelet Volume 12.2 fl (7.4-10.4); Platelet Count Result 259 k/mm3 (150-375); Red Blood Count 3.49 M/mm3 (4.6-6.20); Red Cell Distribution Width 15.1 % (11.5-14.5); White Blood Count 10.8 K/mm3 (4.5-10.0)
[2019-08-09 05:25] LABS: Blood Urea Nitrogen 30 mg/dL (9-20); Calcium 8.4 mg/dL (8.4-10.2); Carbon Dioxide 34 mmol/L (22-30); Chloride 103 mmol/L (98-107); Estimated CRCL calculation 53 ml/min; Estimated Glomerular Filt Rate 58; Glucose 101 mg/dL (75-110); Sodium 140 mmol/L (137-145)
[2019-08-09] MEDS: METOPROLOL TARTRATE 50 MG TAB PO ×3 (06:11→21:14)
--- NOTE | 2019-08-09 08:52 | PM.IMPN ---
Progress Note: A&P Assessment and Plan (1) Atrial fibrillation with rapid ventricular response: Code(s): I48.91 - Unspecified atrial fibrillation Status: Acute Assessment and Plan: Possibly secondary to acute CHF exacerbation vs ongoing causing worsened LV dysfunction. Echo with global LV dysfunction, EF about 25% RVR difficult to control with medications 08/04 apixaban resumed in anticipation of possible cardioversion 08/05 08/04 IV amiodarone per cardiology 08/05 apixaban held when he had further bleeding, Renal U/s w/o mass and w/ debris in bladder 08/06 cystoscopy with cautery of oozing vessels 08/07 plan to resume apixaban 48 hours post procedure on 08/08. 08/08 resume apixaban. Possible NAN cardioversion on 08/09. (2) Acute exacerbation of CHF (congestive heart failure): Code(s): I50.9 - Heart failure, unspecified Status: Acute Assessment and Plan: Fluid restriction P.o. metoprolol and Entresto IV furosemide and PO KCL (3) Elevated troponin: Code(s): R79.89 - Other specified abnormal findings of blood chemistry Status: Acute Assessment and Plan: Appears due to afib/rvr No ACS (4) HTN (hypertension): Code(s): I10 - Essential (primary) hypertension Status: Chronic Assessment and Plan: Monitor on current regimen (5) Urinary retention: Code(s): R33.9 - Retention of urine, unspecified Status: Acute Assessment and Plan: Sx's c/w prostatic hypertrophy (6) Gross hematuria: Code(s): R31.0 - Gross hematuria Status: Acute Assessment and Plan: Plan per urology Subjective Date/time seen: 08/09/19 08:52 Interval history: Follow-up atrial fibrillation with RVR. Gross hematuria. No further bleeding since procedure 08/06. Cystoscopy with cautery. Denied chest pain or shortness of breath. Edema stable. No GI or issues otherwise. No abdominal pain and nausea. Tolerating diet. Review of Systems Review of Systems: All systems reviewed & are unremarkable except as noted in HPI and below Exam Narrative: Exam Narrative: HEENT: EOMI, PERRL, sclerae nonicteric, pharyngeal mucosa pink and intact NECK: No JVD CHEST: Clear to auscultation. Normal effort. HEART: NL S1/S2, irregular, tachycardic, no murmur ABDOMEN: BS+, soft, nontender, no mass, no bruits EXTREMITIES: nonpitting edema bilateral LEs NEUROLOGIC: CN intact and symmetric to inspection. MUSCULOSKELETAL: Tone and strength symmetric. PSYCH: Alert. Oriented to person, place, and time Objective Data Vital Signs Vital Signs: Vital Signs - 24 hr 08/08/19 09:05 08/08/19 09:13 08/08/19 10:00 Temperature Pulse Rate 111 H 115 H Respiratory Rate Blood Pressure Pulse Oximetry 91 08/08/19 12:00 08/08/19 14:00 08/08/19 14:15 Temperature 98.6 F Pulse Rate 116 H 131 H 132 H Respiratory Rate 20 Blood Pressure 95/74 L Pulse Oximetry 98 08/08/19 14:16 08/08/19 15:54 08/08/19 16:00 Temperature 97.8 F Pulse Rate 133 H 125 H 121 H Respiratory Rate 18 18 Blood Pressure 103/55 L Pulse Oximetry 97 97 08/08/19 18:00 08/08/19 19:47 08/08/19 20:00 Temperature 98 F Pulse Rate 120 H 118 H 118 H Respiratory Rate 20 20 Blood Pressure 101/61 Pulse Oximetry 98 98 08/08/19 21:42 08/08/19 22:00 08/08/19 23:02 Temperature Pulse Rate 125 H 135 H Respiratory Rate Blood Pressure 82/56 L Pulse Oximetry 08/08/19 23:59 08/09/19 00:00 08/09/19 01:39 Temperature 97.6 F Pulse Rate 122 H 108 H 128 H Respiratory Rate 20 20 Blood Pressure 90/70 L Pulse Oximetry 100 100 08/09/19 03:59 08/09/19 04:00 08/09/19 06:00 Temperature 97.6 F Pulse Rate 116 H 116 H 120 H Respiratory Rate 20 20 Blood Pressure 108/70 Pulse Oximetry 99 99 08/09/19 06:11 08/09/19 08:30 Temperature 97.8 F Pulse Rate 73 108 H Respiratory Rate 14 Blood Pressure 116/72 94/69 L Pulse Oximetry 98 Intake/Output
[2019-08-09] MEDS: FINASTERIDE 5 MG TABLET PO (09:12)
[2019-08-09] MEDS: DIGOXIN 250 MCG TABLET PO (09:12)
[2019-08-09] MEDS: TOLNAFTATE 1% POWDER 45 GM BTL 1 APPLIC TOPICAL ×2 (09:13→21:14)
[2019-08-09] MEDS: AMIODARONE HCL 200 MG TABLET 400 MG PO (09:13)
[2019-08-09] MEDS: APIXABAN 5 MG TABLET PO ×2 (10:03→21:15)
[2019-08-09] MEDS: SACUBITRIL/VALSARTAN 12-13 MG TABLET 1 TAB PO ×2 (10:03→21:14)
--- NOTE | 2019-08-09 10:19 | PM.PNCARD ---
Progress Note: A&P Additional Plan 79-year-old white male with Left ventricular systolic dysfunction and persistent atrial fibrillation. Unsure on arrival with his AFib was chronic or paroxysmal. Heart rate is better controlled even not ideal despite multiple drugs including amiodarone metoprolol and digoxin. Gross hematuria has now resolved and so hopefully systemic anticoagulation will be tolerated this time. Apixaban being resumed today. If he tolerates apixaban without hematuria will anticipate attempting NAN/cardioversion tomorrow. Time Spent With Patient Time with patient: 15 - 25 minutes Subjective Date/time seen: Date of service: 08/09/19 10:19 Interval history: 79-year-old man with atrial fib of uncertain chronicity. He also has relatively severe left ventricular systolic dysfunction came in to the hospital with dyspnea and volume overload. He is doing better symptomatically and has reasonable rate control. An attempt at restoring sinus rhythm would be reasonable and concept of attempting NAN/cardioversion tomorrow was discussed patient with some detail. There have been interruptions in systemic anticoagulation because of gross hematuria and so NAN with is clearly necessary before any attempt at cardioverting this gentleman Exam Const: General: comfortable and no acute distress HENMT: Mouth: Yes moist mucous membranes Eyes: Sclera: sclerae normal Pupils: Equal, round and reactive pupils present Neck: Neck: supple and no JVD Thyroid: thyroid normal Other: Normal carotid pulses bilaterally Resp: Effort & Inspection: normal respiratory effort Other: Breath sounds largely clear Cardio: Rhythm: abnormal rhythm irregularly irregular GI: Auscultation: normal bowel sounds Skin: General skin exam: normal color Neuro: Cognition (Neuro): normal cognition Extrem: General: normal to inspection Objective Data Vital Signs Vital Signs: Vital Signs - 24 hr 08/08/19 12:00 08/08/19 14:00 08/08/19 14:15 Temperature 37.0 C Pulse Rate 116 H 131 H 132 H Respiratory Rate 20 Blood Pressure 95/74 L Pulse Oximetry 98 08/08/19 14:16 08/08/19 15:54 08/08/19 16:00 Temperature 36.6 C Pulse Rate 133 H 125 H 121 H Respiratory Rate 18 18 Blood Pressure 103/55 L Pulse Oximetry 97 97 08/08/19 18:00 08/08/19 19:47 08/08/19 20:00 Temperature 36.6 C Pulse Rate 120 H 118 H 118 H Respiratory Rate 20 20 Blood Pressure 101/61 Pulse Oximetry 98 98 08/08/19 21:42 08/08/19 22:00 08/08/19 23:02 Temperature Pulse Rate 125 H 135 H Respiratory Rate Blood Pressure 82/56 L Pulse Oximetry 08/08/19 23:59 08/09/19 00:00 08/09/19 01:39 Temperature 36.4 C Pulse Rate 122 H 108 H 128 H Respiratory Rate 20 20 Blood Pressure 90/70 L Pulse Oximetry 100 100 08/09/19 03:59 08/09/19 04:00 08/09/19 06:00 Temperature 36.4 C Pulse Rate 116 H 116 H 120 H Respiratory Rate 20 20 Blood Pressure 108/70 Pulse Oximetry 99 99 08/09/19 06:11 08/09/19 08:30 08/09/19 08:54 Temperature 36.6 C Pulse Rate 73 108 H Respiratory Rate 14 Blood Pressure 116/72 94/69 L Pulse Oximetry 98 95 08/09/19 09:12 08/09/19 09:13 Temperature Pulse Rate 119 H 119 H Respiratory Rate Blood Pressure Pulse Oximetry Intake/Output Intake/Output: Intake & Output 08/06/19 08/07/19 08/08/19 08/09/19 23:59 23:59 23:59 23:59 Intake Total 820 1980 1530 680 Output Total 7284 1460 1639 600 [facility] [place] -[phone] -[phone] -[phone] 80 Meds/Results Medications: Active Medications Generic Name Dose Route Start Last Admin Trade Name Freq PRN Reason Stop Dose Admin Acetaminophen 650 mg 08/03/19 20:01 08/07/19 03:39 Tylenol Tablet PO 650 mg Q4H PRN Administration Mild Pain (1-3) or Fever Hydrocodone Bitart/Acetaminophen 1 tab 08/06/19 16:42 08/09/19 06:26 [place] 10-325 Mg PO 1 tab Q4H PRN Administration pain 7-10 Al Hydrox/Mg Hydrox/Simethicone
[2019-08-09] MEDS: MAGNESIUM HYDROXIDE SUSP 30 ML UDC PO (11:53)
[2019-08-09] MEDS: BISACODYL 5 MG TABLET EC PO (16:38)
[2019-08-09] MEDS: HYOSCYAMINE SULFATE 0.125 MG TABLET PO (16:38)
[2019-08-09] MEDS: MELATONIN 3 MG TABLET PO (21:14)
[2019-08-09] MEDS: TERAZOSIN HCL 1 MG CAPSULE 4 MG PO (21:14)
[2019-08-09] MEDS: SENNOSIDES 8.6 MG TABLET PO (21:15)
[2019-08-10] VITALS (21 sets, daily range): BP systolic 105–139; BP diastolic 64–83; PULSE 72–128; RESP 20–22; TEMP 36.2–36.7; O2SAT 94–97
[2019-08-10] MEDS: METOPROLOL TARTRATE 50 MG TAB PO ×3 (05:50→21:03)
--- NOTE | 2019-08-10 07:49 | WPDUROPN2 ---
Progress Note: A&P Assessment and Plan (1) Gross hematuria: Code(s): R31.0 - Gross hematuria Status: Acute (2) Urinary retention: Code(s): R33.9 - Retention of urine, unspecified Status: Acute Assessment and Plan: Hematuria seems much imporved since Saturday. I'd planned a voiding trial today but will defer until tomorrow in light of sedation needed for NAN. Subjective Subjective Date/Time Seen: 08/10/19 07:49 Overall, tolerating catheter pretty well. No significant hematuria overnight. Review of Systems Cardiovascular: Cardiovascular: Denies chest pain, Denies lightheadedness, Denies palpitations and Denies dyspnea Respiratory: Respiratory: Denies dyspnea Gastrointestinal: Gastrointestinal: Denies diarrhea, Denies nausea and Denies vomiting Genitourinary: Genitourinary: Denies hematuria and Denies dysuria Endocrine: Endocrine: Denies palpitations Exam Const: General: no acute distress Resp: Effort & Inspection: normal respiratory effort GI: Inspection: non-distended GI Palp: No abdominal tenderness and No Guarding due to palpation present (GI) Auscultation: normal bowel sounds Objective Data Vital Signs Vital Signs: Vital Signs - 24 hr 08/09/19 08:00 08/09/19 08:30 08/09/19 08:54 Temperature 97.8 F Pulse Rate 110 H 108 H Respiratory Rate 14 Blood Pressure 94/69 L Pulse Oximetry 98 95 08/09/19 09:12 08/09/19 09:13 08/09/19 10:00 Temperature Pulse Rate 119 H 119 H 117 H Respiratory Rate Blood Pressure Pulse Oximetry 08/09/19 12:00 08/09/19 14:00 08/09/19 14:06 Temperature 97.4 F L Pulse Rate 113 H 120 H 120 H Respiratory Rate 16 Blood Pressure 112/56 L Pulse Oximetry 97 08/09/19 16:00 08/09/19 16:12 08/09/19 17:34 Temperature 97.6 F Pulse Rate 117 H 120 H 111 H Respiratory Rate 16 Blood Pressure 104/60 Pulse Oximetry 97 08/09/19 19:30 08/09/19 20:00 08/09/19 21:01 Temperature 97.2 F L Pulse Rate 115 H 121 H Respiratory Rate 20 Blood Pressure 120/75 116/84 Pulse Oximetry 96 08/09/19 21:14 08/09/19 22:00 08/09/19 23:18 Temperature 97.6 F Pulse Rate 127 H 113 H 112 H Respiratory Rate 18 Blood Pressure 96/68 L Pulse Oximetry 95 08/10/19 00:00 08/10/19 02:00 08/10/19 04:00 Temperature 97.2 F L Pulse Rate 117 H 118 H 72 Respiratory Rate 20 Blood Pressure 139/82 Pulse Oximetry 97 08/10/19 05:50 08/10/19 06:00 Temperature Pulse Rate 118 H 115 H Respiratory Rate Blood Pressure Pulse Oximetry Intake/Output Intake/Output: Intake & Output 08/07/19 08/08/19 08/09/19 08/10/19 23:59 23:59 23:59 23:59 Intake Total 1980 1530 1430 Output Total 8004 0363 7494 600 [facility] -6070 -[phone] -345 [phone] Meds/Results Medications: Active Medications Generic Name Dose Route Start Last Admin Trade Name Freq PRN Reason Stop Dose Admin Acetaminophen 650 mg 08/03/19 20:01 08/07/19 03:39 Tylenol Tablet PO 650 mg Q4H PRN Administration Mild Pain (1-3) or Fever Hydrocodone Bitart/Acetaminophen 1 tab 08/06/19 16:42 08/09/19 06:26 [place] 10-325 Mg PO 1 tab Q4H PRN Administration pain 7-10 Al Hydrox/Mg Hydrox/Simethicone 30 ml 08/03/19 20:01 08/08/19 00:32 Mylanta PO 30 ml QID PRN Administration Dyspepsia Amiodarone HCl 400 mg 08/08/19 11:55 08/09/19 09:13 Pacerone PO 400 mg DAILY@0800 GENTRY Administration Apixaban 5 mg 08/09/19 09:00 08/09/19 21:15 Eliquis PO 5 mg Q12HR GENTRY Administration Digoxin 250 mcg 08/07/19 14:25 08/09/19 09:12 Lanoxin Tab PO 250 mcg QAM GENTRY Administration Fentanyl Citrate 25 mcg 08/07/19 10:21 08/07/19 13:25 Sublimaze IV PUSH 25 mcg Q2M PRN Administration Pain Finasteride 5 mg 08/04/19 09:00 08/09/19 09:12 Proscar PO 5 mg QAM GENTRY Administration Furosemide 40 mg 08/04/19 17:00 08/09/19 14:05 Lasix Inj IV PUSH Not G
[2019-08-10] MEDS: TOLNAFTATE 1% POWDER 45 GM BTL 1 APPLIC TOPICAL ×2 (08:41→21:03)
[2019-08-10] MEDS: APIXABAN 5 MG TABLET PO ×2 (08:49→21:03)
[2019-08-10] MEDS: AMIODARONE HCL 200 MG TABLET 400 MG PO (08:49)
[2019-08-10] MEDS: FINASTERIDE 5 MG TABLET PO (08:49)
[2019-08-10] MEDS: DIGOXIN 250 MCG TABLET PO (08:49)
[2019-08-10] MEDS: SACUBITRIL/VALSARTAN 12-13 MG TABLET 1 TAB PO ×2 (08:49→21:03)
--- NOTE | 2019-08-10 13:41 | PM.IMPN ---
Progress Note: A&P Assessment and Plan (1) Atrial fibrillation with rapid ventricular response: Code(s): I48.91 - Unspecified atrial fibrillation Status: Acute Assessment and Plan: Possibly secondary to acute CHF exacerbation vs ongoing causing worsened LV dysfunction. Echo with global LV dysfunction, EF about 25% RVR difficult to control with medications 08/04 apixaban resumed in anticipation of possible cardioversion 08/05 08/04 IV amiodarone per cardiology 08/05 apixaban held when he had further bleeding, Renal U/s w/o mass and w/ debris in bladder 08/06 cystoscopy with cautery of oozing vessels 08/07 plan to resume apixaban 48 hours post procedure on 08/08. 08/08 resume apixaban. Possible NAN cardioversion on 08/09. 08/09 no further bleeding but cardiology unable to perform cardioversion due to shortage of anesthesia personnel (2) Acute exacerbation of CHF (congestive heart failure): Code(s): I50.9 - Heart failure, unspecified Status: Acute Assessment and Plan: Fluid restriction P.o. metoprolol and Entresto IV furosemide and PO KCL on hold 08/08 (3) Elevated troponin: Code(s): R79.89 - Other specified abnormal findings of blood chemistry Status: Acute Assessment and Plan: Appears due to afib/rvr No ACS (4) HTN (hypertension): Code(s): I10 - Essential (primary) hypertension Status: Chronic Assessment and Plan: Monitor on current regimen (5) Urinary retention: Code(s): R33.9 - Retention of urine, unspecified Status: Acute Assessment and Plan: Sx's c/w prostatic hypertrophy (6) Gross hematuria: Code(s): R31.0 - Gross hematuria Status: Acute Assessment and Plan: 08/08 and 08/09 d/w Dr. Collins and plan is to maintain plasencia until after NAN cardioversion Subjective Date/time seen: 08/10/19 13:41 Interval history: Follow-up atrial fibrillation with RVR. Gross hematuria. No further bleeding since procedure 08/06. Cystoscopy with cautery. Denied chest pain or shortness of breath. Edema stable. No GI or issues otherwise. No abdominal pain and nausea. Tolerating diet. Review of Systems Review of Systems: All systems reviewed & are unremarkable except as noted in HPI and below Exam Narrative: Exam Narrative: HEENT: EOMI, PERRL, sclerae nonicteric, pharyngeal mucosa pink and intact NECK: No JVD CHEST: Clear to auscultation. Normal effort. HEART: NL S1/S2, irregular, tachycardic, no murmur ABDOMEN: BS+, soft, nontender, no mass, no bruits EXTREMITIES: nonpitting edema bilateral LEs NEUROLOGIC: CN intact and symmetric to inspection. MUSCULOSKELETAL: Tone and strength symmetric. PSYCH: Alert. Oriented to person, place, and time Objective Data Vital Signs Vital Signs: Vital Signs - 24 hr 08/09/19 14:00 08/09/19 14:06 08/09/19 16:00 Temperature Pulse Rate 120 H 120 H 117 H Respiratory Rate Blood Pressure Pulse Oximetry 08/09/19 16:12 08/09/19 17:34 08/09/19 19:30 Temperature 97.6 F 97.2 F L Pulse Rate 120 H 111 H 115 H Respiratory Rate 16 20 Blood Pressure 104/60 120/75 Pulse Oximetry 97 96 08/09/19 20:00 08/09/19 21:01 08/09/19 21:14 Temperature Pulse Rate 121 H 127 H Respiratory Rate Blood Pressure 116/84 Pulse Oximetry 08/09/19 22:00 08/09/19 23:18 08/10/19 00:00 Temperature 97.6 F Pulse Rate 113 H 112 H 117 H Respiratory Rate 18 Blood Pressure 96/68 L Pulse Oximetry 95 08/10/19 02:00 08/10/19 04:00 08/10/19 05:50 Temperature 97.2 F L Pulse Rate 118 H 72 118 H Respiratory Rate 20 Blood Pressure 139/82 Pulse Oximetry 97 08/10/19 06:00 08/10/19 07:52 08/10/19 08:00 Temperature 98.1 F Pulse Rate 115 H 120 H 97 Respiratory Rate 20 Blood Pressure 109/64 Pulse Oximetry 96 08/10/19 08:49 08/10/19 10:00 08/10/19 11:55 Temperature 98.0 F Pulse Rate 122 H 115 H 124 H Respiratory Rate 22 H Blood Pressure
--- NOTE | 2019-08-10 13:46 | PM.PNCARD ---
Progress Note: A&P Additional Plan 79-year-old man as detailed above with persistent atrial fibrillation in the setting of picture of dilated cardiomyopathy with poor left ventricular function by echo. Patient would undoubtedly improve improve/benefit hemodynamically if sinus rhythm could be restored. Will attempt NAN/cardioversion tomorrow with the assistance of anesthesia. Time Spent With Patient Time with patient: 15 - 25 minutes Subjective Date/time seen: Date of service: 08/10/19 13:46 Interval history: Follow-up visit an 79-year-old man with evidence of dilated cardiomyopathy, atrial fibrillation of unknown chronicity and biventricular CHF. Patient is weak and reports no other specific cardiac complaints today. Plans to attempt NAN/cardioversion today have been delayed because of unavailability of anesthesia to assist with the procedure. Exam Const: General: uncomfortable HENMT: Mouth: Yes moist mucous membranes Eyes: Sclera: sclerae normal Pupils: Equal, round and reactive pupils present Neck: Neck: supple and no JVD Thyroid: thyroid normal Resp: Effort & Inspection: normal respiratory effort Other: Scattered rhonchi and diminished breath sounds because of obesity. Cardio: Rhythm: abnormal rhythm irregularly irregular GI: Auscultation: normal bowel sounds Skin: General skin exam: normal color Neuro: Cognition (Neuro): normal cognition Objective Data Vital Signs Vital Signs: Vital Signs - 24 hr 08/09/19 14:00 08/09/19 14:06 08/09/19 16:00 Temperature Pulse Rate 120 H 120 H 117 H Respiratory Rate Blood Pressure Pulse Oximetry 08/09/19 16:12 08/09/19 17:34 08/09/19 19:30 Temperature 36.4 C 36.2 C L Pulse Rate 120 H 111 H 115 H Respiratory Rate 16 20 Blood Pressure 104/60 120/75 Pulse Oximetry 97 96 08/09/19 20:00 08/09/19 21:01 08/09/19 21:14 Temperature Pulse Rate 121 H 127 H Respiratory Rate Blood Pressure 116/84 Pulse Oximetry 08/09/19 22:00 08/09/19 23:18 08/10/19 00:00 Temperature 36.4 C Pulse Rate 113 H 112 H 117 H Respiratory Rate 18 Blood Pressure 96/68 L Pulse Oximetry 95 08/10/19 02:00 08/10/19 04:00 08/10/19 05:50 Temperature 36.2 C L Pulse Rate 118 H 72 118 H Respiratory Rate 20 Blood Pressure 139/82 Pulse Oximetry 97 08/10/19 06:00 08/10/19 07:52 08/10/19 08:00 Temperature 36.7 C Pulse Rate 115 H 120 H 97 Respiratory Rate 20 Blood Pressure 109/64 Pulse Oximetry 96 08/10/19 08:49 08/10/19 10:00 08/10/19 11:55 Temperature 36.7 C Pulse Rate 122 H 115 H 124 H Respiratory Rate 22 H Blood Pressure 123/83 Pulse Oximetry 97 08/10/19 12:00 Temperature Pulse Rate 128 H Respiratory Rate Blood Pressure Pulse Oximetry Intake/Output Intake/Output: Intake & Output 08/07/19 08/08/19 08/09/19 08/10/19 23:59 23:59 23:59 23:59 Intake Total 1980 1530 1430 Output Total 8098 4523 0581 600 [facility] -6070 -1670 -345 [phone] Meds/Results Medications: Active Medications Generic Name Dose Route Start Last Admin Trade Name Freq PRN Reason Stop Dose Admin Acetaminophen 650 mg 08/03/19 20:01 08/07/19 03:39 Tylenol Tablet PO 650 mg Q4H PRN Administration Mild Pain (1-3) or Fever Hydrocodone Bitart/Acetaminophen 1 tab 08/06/19 16:42 08/09/19 06:26 [place] 10-325 Mg PO 1 tab Q4H PRN Administration pain 7-10 Al Hydrox/Mg Hydrox/Simethicone 30 ml 08/03/19 20:01 08/08/19 00:32 Mylanta PO 30 ml QID PRN Administration Dyspepsia Amiodarone HCl 400 mg 08/08/19 11:55 08/10/19 08:49 Pacerone PO 400 mg DAILY@0800 GENTRY Administration Apixaban 5 mg 08/09/19 09:00 08/10/19 08:49 Eliquis PO 5 mg Q12HR GENTRY Administration Digoxin 250 mcg 08/07/19 14:25 08/10/19 08:49 Lanoxin Tab PO 250 mcg QAM GENTRY Administration Fentanyl Citrate 25 mcg 08/07/19 10:21 08/07/19 13:25 Sublimaze IV PUSH 25 mcg Q2M PRN
[2019-08-10] MEDS: SENNOSIDES 8.6 MG TABLET PO (21:03)
[2019-08-10] MEDS: TERAZOSIN HCL 1 MG CAPSULE 4 MG PO (21:03)
[2019-08-10] MEDS: MELATONIN 3 MG TABLET PO (21:03)
[2019-08-11] VITALS (21 sets, daily range): BP systolic 95–149; BP diastolic 49–95; PULSE 73–152; RESP 15–24; TEMP 36.3–37.2; O2SAT 92–99; BMI 35.9
[2019-08-11] MEDS: METOPROLOL TARTRATE 50 MG TAB PO (06:15)
[2019-08-11] MEDS: AMIODARONE HCL 200 MG TABLET 400 MG PO (08:22)
[2019-08-11] MEDS: FINASTERIDE 5 MG TABLET PO (08:22)
[2019-08-11] MEDS: APIXABAN 5 MG TABLET PO ×2 (08:23→19:57)
[2019-08-11] MEDS: DIGOXIN 250 MCG TABLET PO (08:24)
[2019-08-11] MEDS: TOLNAFTATE 1% POWDER 45 GM BTL 1 APPLIC TOPICAL ×2 (08:25→19:57)
[2019-08-11] MEDS: SACUBITRIL/VALSARTAN 12-13 MG TABLET 1 TAB PO ×2 (09:11→19:57)
--- NOTE | 2019-08-11 09:48 | WPDANESEFPP ---
Anes - Eval Final PreProcedure Day of Procedure 08/11/19 09:48 Note started in error. Please disregard. Informed Consent: The patient's anesthetic plan and its attendant risks and benefits were discussed with the patient/family/POA. Questions were solicited and answers provided to the satisfaction of the patient/family/POA.
--- NOTE | 2019-08-11 09:48 | WPDANESEPPF ---
Anes - Initial Pre Proc Eval Procedure: Operation Date: 08/07/19 12:00 Proposed Procedures p Cystoscopy, Evacuation Bladder Clots - Fausto Collins MD Operation Date: 08/11/19 10:00 Proposed Procedures p Trans Esophageal Echo - Colton Cerna MD s Electrical Cardioversion - Colton Cerna MD Date/Time: 08/11/19 09:48 Surgeon: Eryn Pre Op Diagnosis: CHF Pre Op Diagnosis: CHF/ N STEMI Patient Data Age: 79 Gender: M Height: 5 ft 9 in Weight: 110.2 kg Last Vital Signs Temp 36.9 C 08/11/19 08:22 Pulse 110 H 08/11/19 08:24 Resp 22 H 08/11/19 08:22 BP 133/77 08/11/19 08:22 Pulse Ox 92 08/11/19 08:22 Allergies Allergy/AdvReac Type Severity Reaction Status Date / Time No Known Allergies Allergy Unverified 12/16/15 09:15 Home Medications Medication Instructions Recorded Confirmed Type diltiazem HCl 240 mg 240 mg PO DAILY #30 cap 04/27/19 08/03/19 Rx capsule,extended release 24 hr furosemide 40 mg tablet 40 mg PO QAM #30 tablet 04/27/19 08/03/19 Rx apixaban 5 mg tablet 5 mg PO BID #60 tablet 06/01/19 08/03/19 Rx oxybutynin chloride 5 mg PO HS 08/03/19 08/03/19 History potassium chloride 10 meq PO DAILY 08/03/19 08/03/19 History terazosin 2 mg PO HS 08/03/19 08/03/19 History hydrocodone 10 mg-acetaminophen 1 tablet PO Q8H PRN #90 tablet 08/04/19 08/04/19 Rx 325 mg tablet ECG: A fib rate 122 Patient hx anesthesia problems: none Family hx anesthesia problems: none PMFSH Past Medical History Medical History A-fib HTN (hypertension) Obesity (BMI 30-39.9) Osteoarthritis involving multiple joints on both sides of body Surgical History Surgical History Hx of cataract removal with insertion of prosthetic lens Family History Family History Mother Family history of type 2 diabetes mellitus Sister Hypertension Father Family history of coronary artery disease Other Family history of cardiovascular disease Social History Social History Smoking packs per day: 3 Smoking cigarettes per day: 60.0 Years smoked: 25 Smoking pack-years: 75.00 Smoking status: Former smoker Tobacco type: cigarettes Smoking end date: 05/20/88 Alcohol intake: former Drinks per week: 5 Substance use: never Gender identity (if verbalized by the patient): Male Spiritual care concerns: No Agree to blood products: Yes Anes - Eval Final PreProcedure Day of Procedure 08/11/19 09:48 Patient weight: obese Heart: irregular rhythm (afib) and tachycardia Airway: Mallampati scale class II and other (edentulous, full moustache and tinsley) Neurological: alert and oriented Last oral intake: >/= 8 hours ASA classification: IV Emergent: yes Anesthetic plan: proceed Anesthesia type and monitoring: general Informed Consent: The patient's anesthetic plan and its attendant risks and benefits were discussed with the patient/family/POA. Questions were solicited and answers provided to the satisfaction of the patient/family/POA.
--- NOTE | 2019-08-11 10:00 | PC.NURSE ---
Patient left the floor for cardio version 10:00
--- NOTE | 2019-08-11 10:00 | ECG_ITS ---
Measurements Intervals [place] Rate: 38 P: 33 WA: 165 QRS: 13 QRSD: 104 T: 82 QT: 478 QTc: 382 Interpretive Statements SINUS BRADYCARDIA CONSIDER INFERIOR INFARCT, AGE INDETERMINATE BORDERLINE T WAVE ABNORMALITY- ANTERIOR LEADS BASELINE ARTIFACT- I, II, AVR, AVL, AVF, V1-V5 ABNORMAL ECG Electronically Signed On 08-11-2019 13:01:51 CDT by Isma Lopez D.O.
--- NOTE | 2019-08-11 10:42 | WPDCARDPROC ---
Cardiac Cath Procedure Note Date of procedure:: 08/11/19 Performing physician:: Colton Cerna MD Indication:: Persistent atrial fibrillation with dilated cardiomyopathy Brief clinical history:: 79-year-old patient with a history of atrial fibrillation of unknown chronicity and with no also been found to have severe cardiomyopathy and congestive heart failure. In an attempt to restore sinus rhythm and improve his heart failure in attempted restoring sinus rhythm has been recommended. He has been treated with amiodarone and is currently anticoagulated with apixaban. Procedure Procedure performed:: Homer/cardioversion Sedation/Medication given:: See anesthesia note Estimated blood loss:: No blood loss Procedure note:: Patient was sedated by the anesthesia service and following this esophageal echo probe was placed easily into the hypopharynx and the esophagus. The left atrium was inspected carefully its entirety including the left atrial appendage. There was of course presence of left atrial smoke but no visible thrombus in the appendage. Following this the patient was cardioverted with 200 joules in a synchronized fashion which failed to restore sinus rhythm. He was then cardioverted with 360 joules which did restore normal sinus rhythm/sinus bradycardia. Findings:: As above Conclusion:: Successful uncomplicated DC cardioversion of atrial fib to sinus rhythm using 360 joules after 200 joules fails. This was done following transesophageal echocardiographic examination of the left atrium demonstrating no evidence of visible atrial thrombus. Colton Cerna MD [facility]
--- NOTE | 2019-08-11 11:11 | PC.NURSE ---
Patient returned from cardio version at 11:11
--- NOTE | 2019-08-11 12:00 | ECHO_ITS ---
Patient Info Name: Neida Mondragon Age: 79 years : 1940 Gender: Male Ht: 69 in Wt: 247 lbs BSA: 2.38 m2 HR: 104 bpm BP: 109 / 87 mmHg Heart Rhythm: Atrial Fibrillation Technical Quality: Good Exam Date: 08/11/2019 9:52 AM Exam Location: [facility] Patient Status: Inpatient Admit Date: 08/03/2019 Staff Ordering Physician: Kathie Andrade APRN Pie Crust Mixer: Maurilio Fritz RDCS Attending Provider: Ruddy Blakely MD Referring Physician: Raymond ALLEN; Exam Type: CA echo transesophageal Study Info Indications I48.1 - Persistent atrial fibrillation Limited two-dimensional transesophageal examination is performed. History/Risk Factors Atrial fibrillation; CHF and NSTEMI. Summary 1. Left ventricular chamber dimension is moderately enlarged. 2. LV contractility is severely rediced. 3. Left atrial chamber dimension is severely enlarged. 4. There is no thrombus visualized in the left atrium. 5. Limited exam in pt with A Fib to exclude LA clot prior to DC Cardioversion. Left Ventricle Left ventricular chamber dimension is moderately enlarged. Left ventricular systolic function is severely reduced with an ejection fraction by Biplane Method of Discs of Empty. LV contractility is severely rediced. Right Ventricle Right ventricular chamber dimension is not well visualized. Left Atria Left atrial chamber dimension is severely enlarged. There is no thrombus visualized in the left atrium. Right Atria Right atrial chamber dimension is moderately enlarged. Aortic Valve The aortic valve is normal. Pulmonic Valve The pulmonic valve is not well visualized. Mitral Valve The mitral valve has normal leaflets. Tricuspid Valve The tricuspid valve leaflets are not well visualized. Pericardium/Pleural The pericardium appears normal. Inferior Vena Cava Not well visualized inferior vena cava with Empty collapse upon inspiration consistent with Empty right atrial pressure, Empty. Aorta The aortic root size at the sinus of Valsalva is not well visualized. Report Signatures
--- NOTE | 2019-08-11 12:47 | PM.IMPN ---
Progress Note: A&P Assessment and Plan (1) Atrial fibrillation with rapid ventricular response: Code(s): I48.91 - Unspecified atrial fibrillation Status: Acute Assessment and Plan: Possibly secondary to acute CHF exacerbation vs ongoing causing worsened LV dysfunction. Echo with global LV dysfunction, EF about 25% RVR difficult to control with medications 08/04 apixaban resumed in anticipation of possible cardioversion 08/05 08/04 IV amiodarone per cardiology 08/05 apixaban held when he had further bleeding, Renal U/s w/o mass and w/ debris in bladder 08/06 cystoscopy with cautery of oozing vessels 08/07 plan to resume apixaban 48 hours post procedure on 08/08. 08/08 resume apixaban. NAN cardioversion on 08/10 today (2) Acute exacerbation of CHF (congestive heart failure): Code(s): I50.9 - Heart failure, unspecified Status: Acute Assessment and Plan: Fluid restriction P.o. metoprolol and Entresto IV furosemide and PO KCL on hold 08/08 (3) Elevated troponin: Code(s): R79.89 - Other specified abnormal findings of blood chemistry Status: Acute Assessment and Plan: Appears due to afib/rvr No ACS (4) HTN (hypertension): Code(s): I10 - Essential (primary) hypertension Status: Chronic Assessment and Plan: Monitor on current regimen (5) Urinary retention: Code(s): R33.9 - Retention of urine, unspecified Status: Acute Assessment and Plan: Sx's c/w prostatic hypertrophy (6) Gross hematuria: Code(s): R31.0 - Gross hematuria Status: Acute Assessment and Plan: 08/08 and 08/09 d/w Dr. Collins and plan is to maintain plasencia until after NAN cardioversion Subjective Date/time seen: 08/11/19 12:47 Interval history: Date of visit 08/10. follow-up visit an 79-year-old man with evidence of dilated cardiomyopathy, atrial fibrillation of unknown chronicity and biventricular CHF. Patient is weak and reports no other specific cardiac complaints today. Plans to attempt NAN/cardioversion 08/09 were delayed because of unavailability of anesthesia to assist with the procedure. but to undergo today Exam Narrative: Exam Narrative: Blood pressure 102/50 pulse is 110 irregular afebrile HEENT: EOMI, PERRL, sclerae nonicteric, NECK: No JVD CHEST: Clear to auscultation. Normal effort. HEART: NL S1/S2, irregular, tachycardic, no murmur ABDOMEN: BS+, soft, nontender, no mass, no bruits EXTREMITIES: nonpitting edema bilateral LEs NEUROLOGIC: CN intact and symmetric to inspection. PSYCH: Alert. Oriented to person, place, and time Objective Data Vital Signs Vital Signs: Vital Signs - 24 hr 08/10/19 13:56 08/10/19 14:00 08/10/19 16:00 Temperature 36.7 C Pulse Rate 125 H 122 H 110 H Respiratory Rate 20 Blood Pressure 118/81 Pulse Oximetry 97 08/10/19 17:54 08/10/19 19:30 08/10/19 20:00 Temperature 36.7 C Pulse Rate 121 H 123 H 121 H Respiratory Rate 20 Blood Pressure 116/70 Pulse Oximetry 96 08/10/19 21:00 08/10/19 21:03 08/10/19 22:00 Temperature Pulse Rate 125 H 119 H Respiratory Rate Blood Pressure 122/69 Pulse Oximetry 08/10/19 23:39 08/11/19 00:00 08/11/19 02:00 Temperature 36.6 C Pulse Rate 105 H 107 H 116 H Respiratory Rate 22 H Blood Pressure 105/69 Pulse Oximetry 94 08/11/19 04:00 08/11/19 04:55 08/11/19 06:00 Temperature 36.4 C L Pulse Rate 106 H 121 H 120 H Respiratory Rate 20 Blood Pressure 149/95 H Pulse Oximetry 96 08/11/19 06:15 08/11/19 08:22 08/11/19 08:24 Temperature 36.9 C Pulse Rate 119 H 121 H 110 H Respiratory Rate 22 H Blood Pressure 133/77 Pulse Oximetry 92 08/11/19 10:50 08/11/19 11:05 08/11/19 11:20 Temperature Pulse Rate 74 73 73 Respiratory Rate 16 17 15 Blood Pressure 104/73 95/66 L 96/67 L Pulse Oximetry 98 98 94 08/11/19 12:34 Temperature 37.2 C Pulse Rate 120 H Respiratory Rate 20 Blood Pressure
[2019-08-11] MEDS: TERAZOSIN HCL 1 MG CAPSULE 4 MG PO (19:57)
[2019-08-11] MEDS: METOPROLOL TARTRATE TAB 25 MG, METOPROLOL TARTRATE TAB 50 MG 75 MG PO (19:57)
[2019-08-11] MEDS: MELATONIN 3 MG TABLET PO (19:57)
[2019-08-11] MEDS: SENNOSIDES 8.6 MG TABLET PO (19:57)
[2019-08-12] VITALS (18 sets, daily range): BP systolic 93–147; BP diastolic 53–99; PULSE 83–148; RESP 18–24; TEMP 36.3–36.7; O2SAT 92–99
[2019-08-12 05:10] LABS: Basophils Percent Auto 0.3 % (0.2-1.2); Eosinophils Absolute Auto 0.3 K/mm3 (0-0.3); Eosinophils Percent Auto 2.9 % (0-4.4); Hematocrit 32.9 % (42.0-52.0); Hemoglobin 10.4 g/dL (14.0-18.0); Immature Granulocyte Absolute 0.04 K/mm3 (0.00-0.031); Immature Granulocyte Percent A 0.4 % (0-0.5); Lymphocytes Absolute Auto 1.22 K/mm3 (0.9-3.2); Lymphocytes Percent Auto 13.5 % (18.3-44.2); Mean Corpuscular HGB Conc 31.6 g/dl (32-36); Mean Corpuscular Hemoglobin 30.9 pg (26-34); Mean Corpuscular Volume 97.6 fl (80-100); Monocytes Absolute Auto 0.9 K/mm3 (0.1-0.6); Monocytes Percent Auto 9.7 % (2.6-8.5); Neutrophils Absolute Auto 6.6 K/mm3 (1.3-6.7); Neutrophils Percent Auto 73.2 % (45.5-73.1); Platelet Count Result 296 k/mm3 (150-375); Red Blood Count 3.37 M/mm3 (4.6-6.20); Red Cell Distribution Width 15.1 % (11.5-14.5); White Blood Count 9.1 K/mm3 (4.5-10.0)
[2019-08-12 06:05] LABS: Blood Urea Nitrogen 16 mg/dL (9-20); Calcium 8.1 mg/dL (8.4-10.2); Carbon Dioxide 30 mmol/L (22-30); Chloride 106 mmol/L (98-107); Estimated CRCL calculation 70 ml/min; Estimated Glomerular Filt Rate > 60; Glucose 107 mg/dL (75-110); Potassium 3.7 mmol/L (3.4-5.0); Sodium 141 mmol/L (137-145)
[2019-08-12] MEDS: APIXABAN 5 MG TABLET PO ×2 (09:29→21:18)
[2019-08-12] MEDS: SACUBITRIL/VALSARTAN 12-13 MG TABLET 1 TAB PO ×2 (09:29→21:17)
[2019-08-12] MEDS: DIGOXIN 250 MCG TABLET PO (09:30)
[2019-08-12] MEDS: FINASTERIDE 5 MG TABLET PO (09:30)
[2019-08-12] MEDS: METOPROLOL TARTRATE TAB 25 MG, METOPROLOL TARTRATE TAB 50 MG 75 MG PO (09:30)
[2019-08-12] MEDS: AMIODARONE HCL 200 MG TABLET 400 MG PO (09:31)
[2019-08-12] MEDS: TOLNAFTATE 1% POWDER 45 GM BTL 1 APPLIC TOPICAL ×2 (09:32→21:19)
[2019-08-12] MEDS: METOPROLOL TARTRATE 25 MG TABLET PO (12:10)
--- NOTE | 2019-08-12 13:42 | PM.PNCARD ---
Progress Note: A&P Assessment and Plan (1) Atrial fibrillation with rapid ventricular response: Code(s): I48.91 - Unspecified atrial fibrillation Status: Acute Assessment and Plan: Atrial fibrillation of unknown chronicity. NAN cardioversion 08/11/2019. Initially converted to sinus bradycardia. Atrial fibrillation with rapid ventricular response resumed approximately 10 minutes after he returned back to his room from the cardioversion. Continue 400 mg daily, apixaban 5 mg b.i.d. and digoxin 0.25 mg daily. Metoprolol will be increased to 100 mg b.i.d.. Additional 25 mg was given this morning. Ideally he should be on Metoprolol succinate given his severely reduced ejection fraction but at this time will try to rate controlling with b.i.d. dosing. His ejection fraction is severely reduced. This may be tachycardic induced but he certainly may have ischemia also. (2) Acute exacerbation of CHF (congestive heart failure): Qualifiers: Heart failure type: systolic Qualified Code(s): I50.23 - Acute on chronic systolic (congestive) heart failure Code(s): I50.9 - Heart failure, unspecified Status: Acute Assessment and Plan: He has not received any diuretics since August 07. Lungs are clear to auscultation however still has some lower extremity edema. Ejection fraction 20-25% most likely will require some diuretics going home. Most likely will resume his home dose of 40 mg daily. (3) HTN (hypertension): Qualifiers: Hypertension type: essential hypertension Qualified Code(s): I10 - Essential (primary) hypertension Code(s): I10 - Essential (primary) hypertension Status: Chronic Assessment and Plan: Blood pressure much better controlled even soft at times. Meds as above. (4) Elevated troponin: Code(s): R79.89 - Other specified abnormal findings of blood chemistry Status: Acute Assessment and Plan: unlikely related to ACS Likely will need an ischemic workup as an outpatient. (5) Gross hematuria: Code(s): R31.0 - Gross hematuria Status: Acute Assessment and Plan: Resolved. Would like to get his [place] out and make sure that he is able to void. Will check with Dr. Collins Additional Plan Plan discussed with Dr Gonzalez [id number] 08/12/2019 Time Spent With Patient Time with patient: less than 15 minutes Subjective Date/time seen: 08/12/19 13:42 Interval history: Follow-up for: dilated cardiomyopathy, atrial fibrillation of unknown chronicity and biventricular CHF. Date of service: 08/12/2019 Subjective: Denied chest pain, shortness of breath lightheadedness or palpitations. Would like to have the [place] out. Review of Systems Constitutional: Constitutional: Denies chills, Denies excessive sweating and Denies headache(s) Eyes: Eyes: Denies photophobia ENT: Denies headache(s), Denies lip swelling, Denies epistaxis, Denies nasal congestion and Denies neck pain Cardiovascular: Cardiovascular: Denies chest pain and Denies dyspnea Respiratory: Respiratory: Denies cough, Denies dyspnea and Denies wheezing Gastrointestinal: Gastrointestinal: Denies abdominal pain and Reports bloating Genitourinary: Genitourinary: Denies hematuria Musculoskeletal: Musculoskeletal: Denies neck pain Comments: Coccyx pain when laying in bed Integumentary/Breasts: Skin/Breast: Denies unusual bruising Neurologic: Denies confusion and Denies headache(s) Psychiatric: Psychiatric: Denies anxiety and Denies confusion Endocrine: Endocrine: Denies excessive sweating Hematologic/Lymphatic: Hematologic/Lymphatic: Denies easy bruising Allergic/Immunologic: Allergic/Immunologic: Denies GI upset with certain foods and Denies lip swelling Exam Const: General: kami
--- NOTE | 2019-08-12 14:20 | PM.IMPN ---
Progress Note: A&P Assessment and Plan (1) Atrial fibrillation with rapid ventricular response: Code(s): I48.91 - Unspecified atrial fibrillation Status: Acute Assessment and Plan: Possibly secondary to acute CHF exacerbation vs ongoing causing worsened LV dysfunction. Echo with global LV dysfunction, EF about 25% RVR difficult to control with medications 08/04 apixaban resumed in anticipation of possible cardioversion 08/05 08/04 IV amiodarone per cardiology 08/05 apixaban held when he had further bleeding, Renal U/s w/o mass and w/ debris in bladder 08/06 cystoscopy with cautery of oozing vessels 08/07 plan to resume apixaban 48 hours post procedure on 08/08. 08/08 resume apixaban. NAN cardioversion on 08/10 unsuccessful striving for rate control (2) Acute exacerbation of CHF (congestive heart failure): Code(s): I50.9 - Heart failure, unspecified Status: Acute Assessment and Plan: Fluid restriction P.o. metoprolol and Entresto IV furosemide and PO KCL on hold 08/08 (3) Elevated troponin: Code(s): R79.89 - Other specified abnormal findings of blood chemistry Status: Acute Assessment and Plan: Appears due to afib/rvr No ACS (4) HTN (hypertension): Code(s): I10 - Essential (primary) hypertension Status: Chronic Assessment and Plan: Monitor on current regimen soft with increased beta subha (5) Urinary retention: Code(s): R33.9 - Retention of urine, unspecified Status: Acute Assessment and Plan: Sx's c/w prostatic hypertrophy (6) Gross hematuria: Code(s): R31.0 - Gross hematuria Status: Acute Assessment and Plan: 08/08 and 08/09 Dr Baptiste d/w Dr. Collins and plan is to maintain plasencia until after NAN cardioversion and can do voiding trial now Subjective Date/time seen: 08/12/19 14:20 Interval history: Date of visit 08/11. follow-up visit an 79-year-old man with evidence of dilated cardiomyopathy, atrial fibrillation of unknown chronicity and biventricular CHF. Patient is weak and reports no other specific cardiac complaints . NAN/cardioversion 08/10 was only successful for short time. ie shortly after returning form procedure back in afib When can I have plasencia out? Exam Narrative: Exam Narrative: Blood pressure 96/60 pulse is 106 irregular afebrile HEENT: EOMI, PERRL, sclerae nonicteric, NECK: No JVD CHEST: Clear to auscultation. Normal effort. HEART: NL S1/S2, irregular, tachycardic, no murmur ABDOMEN: BS+, soft, nontender, no mass, no bruits EXTREMITIES: nonpitting edema bilateral LEs NEUROLOGIC: CN intact and symmetric to inspection. PSYCH: Alert. Oriented to person, place, and time Objective Data Vital Signs Vital Signs: Vital Signs - 24 hr 08/11/19 16:00 08/11/19 18:00 08/11/19 19:33 Temperature 36.3 C L 36.6 C Pulse Rate 135 H 152 H 124 H Respiratory Rate 24 H 22 H Blood Pressure 103/54 L 127/78 Pulse Oximetry 98 99 08/11/19 19:57 08/11/19 20:00 08/11/19 22:00 Temperature Pulse Rate 142 H 135 H 114 H Respiratory Rate Blood Pressure Pulse Oximetry 08/12/19 00:00 08/12/19 02:00 08/12/19 04:00 Temperature 36.7 C 36.7 C Pulse Rate 133 H 129 H 109 H Respiratory Rate 22 H 18 Blood Pressure 129/85 121/82 Pulse Oximetry 96 97 08/12/19 06:00 08/12/19 08:00 08/12/19 09:30 Temperature 36.3 C L Pulse Rate 121 H 121 H 148 H Respiratory Rate 20 Blood Pressure 133/82 Pulse Oximetry 92 08/12/19 09:31 08/12/19 10:00 08/12/19 12:00 Temperature 36.6 C Pulse Rate 141 H 147 H 100 Respiratory Rate 24 H Blood Pressure 93/53 L Pulse Oximetry 98 08/12/19 12:10 08/12/19 13:59 Temperature Pulse Rate 112 H 113 H Respiratory Rate Blood Pressure Pulse Oximetry Intake/Output Intake/Output: Intake & Output 08/09/19 08/10/19 08/11/19 08/12/19 23:59 23:59 23:59 23:59 Intake Total 1430 120 100 Output Total 1775 1075 1050 300 Ba
[2019-08-12] MEDS: POTASSIUM CHLORIDE 20 MEQ TABLET PO (14:59)
[2019-08-12] MEDS: TERAZOSIN HCL 1 MG CAPSULE 4 MG PO (21:17)
[2019-08-12] MEDS: MELATONIN 3 MG TABLET PO (21:17)
[2019-08-12] MEDS: SENNOSIDES 8.6 MG TABLET PO (21:17)
[2019-08-12] MEDS: METOPROLOL TARTRATE 50 MG TAB 100 MG PO (21:17)
[2019-08-13] VITALS (9 sets, daily range): BP systolic 103–142; BP diastolic 88–91; PULSE 91–132; RESP 12–20; TEMP 36.4–36.7; O2SAT 94–97
[2019-08-13 05:01] LABS: Alanine Aminotransferase 17 U/L (4-50); Alkaline Phosphatase 58 U/L (38-126); Aspartate Amino Transferase 20 U/L (17-59); Bilirubin,Total 0.6 mg/dL (0.2-1.3); Blood Urea Nitrogen 14 mg/dL (9-20); Calcium 8.1 mg/dL (8.4-10.2); Carbon Dioxide 29 mmol/L (22-30); Chloride 106 mmol/L (98-107); Estimated CRCL calculation 70 ml/min; Estimated Glomerular Filt Rate > 60; Glucose 105 mg/dL (75-110); Magnesium 2.2 mg/dL (1.6-2.3); Potassium 4.1 mmol/L (3.4-5.0); Sodium 139 mmol/L (137-145)
--- NOTE | 2019-08-13 07:20 | WPDUROPN2 ---
Progress Note: A&P Assessment and Plan (1) Gross hematuria: Code(s): R31.0 - Gross hematuria Status: Acute (2) Urinary retention: Code(s): R33.9 - Retention of urine, unspecified Status: Acute Assessment and Plan: Catheter out today for voiding trial - praying he'll do OK. Regardless, he's probably going home today, from a standpoint, with or without the catheter. Subjective Subjective Date/Time Seen: 08/13/19 07:20 Voiding trial today - catheter out around 0630. Review of Systems Cardiovascular: Cardiovascular: Denies chest pain, Denies lightheadedness, Denies palpitations and Denies dyspnea Respiratory: Respiratory: Denies dyspnea Gastrointestinal: Gastrointestinal: Denies diarrhea, Denies nausea and Denies vomiting Genitourinary: Genitourinary: Denies hematuria and Denies dysuria Endocrine: Endocrine: Denies palpitations Exam Const: General: no acute distress Resp: Effort & Inspection: normal respiratory effort GI: Inspection: non-distended GI Palp: No abdominal tenderness and No Guarding due to palpation present (GI) Auscultation: normal bowel sounds Objective Data Vital Signs Vital Signs: Vital Signs - 24 hr 08/12/19 08:00 08/12/19 09:30 08/12/19 09:31 Temperature 97.3 F L Pulse Rate 127 H 148 H 141 H Respiratory Rate 20 Blood Pressure 133/82 Pulse Oximetry 92 08/12/19 10:00 08/12/19 12:00 08/12/19 12:10 Temperature 98 F Pulse Rate 147 H 100 112 H Respiratory Rate 24 H Blood Pressure 93/53 L Pulse Oximetry 98 08/12/19 13:59 08/12/19 16:00 08/12/19 18:00 Temperature 98 F Pulse Rate 113 H 109 H 108 H Respiratory Rate 20 Blood Pressure 147/99 H Pulse Oximetry 98 08/12/19 19:35 08/12/19 20:00 08/12/19 21:17 Temperature 97.4 F L Pulse Rate 113 H 108 H 145 H Respiratory Rate 18 Blood Pressure 109/66 Pulse Oximetry 99 08/12/19 22:00 08/12/19 23:54 08/13/19 00:00 Temperature 97.9 F Pulse Rate 107 H 83 91 Respiratory Rate 20 Blood Pressure 111/73 Pulse Oximetry 98 08/13/19 02:00 08/13/19 04:00 08/13/19 06:00 Temperature 98.1 F Pulse Rate 101 H 104 H 96 Respiratory Rate 20 Blood Pressure 142/90 H Pulse Oximetry 97 Intake/Output Intake/Output: Intake & Output 08/10/19 08/11/19 08/12/19 08/13/19 23:59 23:59 23:59 23:59 Intake Total 120 700 150 Output Total 1075 1050 750 475 [facility] [place] -1075 -930 -50 -325 Meds/Results Medications: Active Medications Generic Name Dose Route Start Last Admin Trade Name Freq PRN Reason Stop Dose Admin Acetaminophen 650 mg 08/03/19 20:01 08/07/19 03:39 Tylenol Tablet PO 650 mg Q4H PRN Administration Mild Pain (1-3) or Fever Hydrocodone Bitart/Acetaminophen 1 tab 08/06/19 16:42 08/13/19 05:15 [place] 10-325 Mg PO 1 tab Q4H PRN Administration pain 7-10 Al Hydrox/Mg Hydrox/Simethicone 30 ml 08/03/19 20:01 08/08/19 00:32 Mylanta PO 30 ml QID PRN Administration Dyspepsia Amiodarone HCl 400 mg 08/08/19 11:55 08/12/19 09:31 Pacerone PO 400 mg DAILY@0800 GENTRY Administration Apixaban 5 mg 08/09/19 09:00 08/12/19 21:18 Eliquis PO 5 mg Q12HR GENTRY Administration Digoxin 250 mcg 08/12/19 09:00 08/12/19 09:30 Lanoxin Tab PO 250 mcg QAM GENTRY Administration Fentanyl Citrate 25 mcg 08/07/19 10:21 08/07/19 13:25 Sublimaze IV PUSH 25 mcg Q2M PRN Administration Pain Finasteride 5 mg 08/04/19 09:00 08/12/19 09:30 Proscar PO 5 mg QAM GENTRY Administration Furosemide 40 mg 08/04/19 17:00 08/09/19 14:05 Lasix Inj IV PUSH Not Given BID GENTRY Hydromorphone HCl 0.5 mg 08/07/19 15:46 Dilaudid Inj IV PUSH Q3H PRN Breakthrough Pain Rated 7-10 Hyoscyamine 0.125 mg 08/07/19 15:47 08/09/19 16:38 Levsin Tablet PO 0.125 mg Q4H PRN Administration Bladder Spasm Magnesium Hydroxide 30 ml 08/03/19 20:01 08/09/19 11:5
[2019-08-13] MEDS: METOPROLOL TARTRATE 50 MG TAB 100 MG PO (08:48)
[2019-08-13] MEDS: AMIODARONE HCL 200 MG TABLET 400 MG PO (08:48)
[2019-08-13] MEDS: DIGOXIN 250 MCG TABLET PO (08:49)
[2019-08-13] MEDS: APIXABAN 5 MG TABLET PO (08:49)
[2019-08-13] MEDS: FINASTERIDE 5 MG TABLET PO (08:49)
[2019-08-13] MEDS: SACUBITRIL/VALSARTAN 12-13 MG TABLET 1 TAB PO (08:49)
--- NOTE | 2019-08-13 09:47 | ECG_ITS ---
Measurements Intervals [place] Rate: 107 P: [place]: 0 QRS: 2 QRSD: 108 T: 155 QT: 333 QTc: 446 Interpretive Statements ATRIAL FIBRILLATION WITH RAPID VENTRICULAR RESPONSE INFERIOR INFARCT, AGE INDETERMINATE BORDERLINE T WAVE ABNORMALITY- ANT/LAT LEADS BASELINE ARTIFACT- V6 ABNORMAL ECG Electronically Signed On 08-13-2019 11:21:56 CDT by Isma Lopez D.O.
--- NOTE | 2019-08-13 09:49 | PM.PNCARD ---
Progress Note: A&P Assessment and Plan (1) Atrial fibrillation with rapid ventricular response: Code(s): I48.91 - Unspecified atrial fibrillation Status: Acute Assessment and Plan: Atrial fibrillation of unknown chronicity. NAN cardioversion 08/11/2019. Initially converted to sinus bradycardia. Atrial fibrillation with rapid ventricular response resumed approximately 10 minutes after he returned back to his room from the cardioversion. Rate is better. Continue amiodarone 400 mg daily, Metoprolol tartrate 100 mg q.12 hours and Eliquis 5 mg every 12 hours. Will not discharge him on digoxin. Ideally he should be on Metoprolol succinate given his severely reduced ejection fraction but at this time will try to rate controlling with to q.12 hours dosing. (2) Acute exacerbation of CHF (congestive heart failure): Qualifiers: Heart failure type: systolic Qualified Code(s): I50.23 - Acute on chronic systolic (congestive) heart failure Code(s): I50.9 - Heart failure, unspecified Status: Acute Assessment and Plan: He has not received any diuretics since August 07. Lungs are clear to auscultation however still has some lower extremity edema. Ejection fraction 20-25% most likely will require some diuretics going home. Blood pressure a little soft so will start with Lasix 20 mg today. (3) HTN (hypertension): Qualifiers: Hypertension type: essential hypertension Qualified Code(s): I10 - Essential (primary) hypertension Code(s): I10 - Essential (primary) hypertension Status: Chronic Assessment and Plan: Blood pressure much better controlled even soft at times. Meds as above. (4) Elevated troponin: Code(s): R79.89 - Other specified abnormal findings of blood chemistry Status: Acute Assessment and Plan: unlikely related to ACS Likely will need an ischemic workup as an outpatient. (5) Gross hematuria: Code(s): R31.0 - Gross hematuria Status: Acute Assessment and Plan: Blackwood out this morning. Dr. Collins will follow as an outpatient. Additional Plan OK to discharge from cardiac standpoint See discharge instructions for follow-up Plan discussed with Dr. Gonzalez 1000 Subjective Date/time seen: 08/13/19 09:49 Interval history: Follow-up for: dilated cardiomyopathy, atrial fibrillation of unknown chronicity and biventricular CHF. Date of service: 08/13/2019 Subjective: Blackwood came out this morning. Has not yet voided. Denied chest pain, shortness of breath or lightheadedness. Only complaint is back pain. Review of Systems Constitutional: Constitutional: Denies chills, Denies excessive sweating and Denies headache(s) Eyes: Eyes: Denies photophobia ENT: Denies headache(s), Denies lip swelling, Denies epistaxis, Denies nasal congestion and Denies neck pain Cardiovascular: Cardiovascular: Denies chest pain and Denies dyspnea Respiratory: Respiratory: Denies cough, Denies dyspnea and Denies wheezing Gastrointestinal: Gastrointestinal: Denies abdominal pain and Reports bloating Genitourinary: Genitourinary: Denies hematuria Musculoskeletal: Musculoskeletal: Reports back pain Integumentary/Breasts: Skin/Breast: Denies unusual bruising Neurologic: Denies headache(s) Psychiatric: Psychiatric: Denies anxiety Endocrine: Endocrine: Denies excessive sweating Hematologic/Lymphatic: Hematologic/Lymphatic: Denies easy bruising Allergic/Immunologic: Allergic/Immunologic: Denies GI upset with certain foods, Denies lip swelling and Denies wheezing Exam Const: General: cooperative, comfortable and no acute distress Nutritional Appearance: obese Orientation/consciousness: patient oriented x3 HENMT: General nose exam: no epistaxis Mouth: Yes moist mucous membran
[2019-08-13] MEDS: FUROSEMIDE 20 MG TABLET PO (12:00)
[2019-08-13] MEDS: TOLNAFTATE 1% POWDER 45 GM BTL 1 APPLIC TOPICAL (12:00)
--- NOTE | 2019-08-13 14:15 | PCPTNOTE ---
The PT treatment was unable to be completed this afternoon due to patient discharging.
--- NOTE | 2019-08-13 18:18 | PM.DS ---
DS: Diagnosis Admitting Diagnosis Admitting Diagnosis: Unspecified atrial fibrillation Discharge Diagnosis (1) Atrial fibrillation with rapid ventricular response: Code(s): I48.91 - Unspecified atrial fibrillation Status: Acute Assessment and Plan: Possibly secondary to acute CHF exacerbation vs ongoing causing worsened LV dysfunction. Echo with global LV dysfunction, EF about 25% RVR difficult to control with medications but with increasing beta subha resting pulse in 80-90s at discharge 08/04 IV amiodarone load per cardiology and po at discharge Renal U/s w/o mass and w/ debris in bladder 08/06 cystoscopy with cautery of oozing vessels 08/08 resumed apixaban. NAN cardioversion on 08/10 unsuccessful with SR short lived (2) Acute exacerbation of CHF (congestive heart failure): Qualifiers: Heart failure type: systolic Qualified Code(s): I50.23 - Acute on chronic systolic (congestive) heart failure Code(s): I50.9 - Heart failure, unspecified Status: Acute Assessment and Plan: Fluid restricted P.o. metoprolol and Entresto IV furosemide to po and aldactone added with low EF (3) Elevated troponin: Code(s): R79.89 - Other specified abnormal findings of blood chemistry Status: Acute Assessment and Plan: Appears due to afib/rvr No ACS (4) HTN (hypertension): Qualifiers: Hypertension type: essential hypertension Qualified Code(s): I10 - Essential (primary) hypertension Code(s): I10 - Essential (primary) hypertension Status: Chronic Assessment and Plan: Monitor on current regimen soft with increased beta subha and entresto (5) Urinary retention: Code(s): R33.9 - Retention of urine, unspecified Status: Acute Assessment and Plan: Sx's c/w prostatic hypertrophy, proscar and terazosin cath removed and able to void without hematuria day of discharge (6) Gross hematuria: Code(s): R31.0 - Gross hematuria Status: Acute Assessment and Plan: As above status post cysto with cauterizing of vessels and bladder. Back on anticoagulation without any gross hematuria. Blackwood removed day of discharge and voided without difficulty with urgency DS: Summary Hospital Course Hospital Course: 79-year-old white male admitted with heart failure and AFib with rapid ventricular response. Anticoagulated and had gross hematuria. At cysto bladder vessels were cauterized any had bladder irrigation and hematuria resolved. 48 hours post procedure anticoagulants restarted. He was elective Koul cardioverted but did not maintain sinus rhythm. Amiodarone was added and rate was controlled with beta-subha. Ejection fraction was only 25% so Entresto and spironolactone were added to his regime. At discharge potassium is 4.1 and creatinine 0.9 Will have a BMP drawn 08/18 and 08/25 Time Spent with Patient Time attestation: Total time spent providing and/or coordinating discharge services: 35 minutes Exam Narrative: Exam Narrative: Condition on discharge Blood pressure 104/90 pulse is 96 irregular afebrile Lungs clear CV irregular Abdomen soft nontender no masses Extremities trace edema DS: Data Data Completed and Pending Labs on day of discharge: Labs from last 24 hours 08/13/19 04:22 Sodium 139 Potassium 4.1 Chloride 106 Carbon Dioxide 29 BUN 14 Creatinine 0.90 Estim Creat Clear Calc 70 Estimated GFR > 60 Glucose 105 Calcium 8.1 L Magnesium 2.2 Total Bilirubin 0.6 AST 20 ALT 17 Alkaline Phosphatase 58 Total Protein 6.0 L Albumin 3.0 L Discharge Plan Discharge Attending physician on discharge: Austin Shoemaker Consulting providers: Marck Varela ; Fausto Collins Discharging Clinician: Austin Shoemaker Patient Disposition: SNF Activity: as tolerated Diet: low sodium Discharge Instructions: per care coordination, [facility] to resume services at
== END 2019-08-13 15:48 | DRG 264 ==
PROVIDERS: Family Medicine; Internal Medicine; Specialist; Urology; Admitting Provider Family Medicine; PCP Family Medicine; Visit Provider Internal Medicine
PROC: 0TCB8ZZ Extirpation of Matter from Bladder, Via Natural or Artificial Opening Endoscopic (ICD-10-PCS; CPT 52001; principal; 2019-08-07 12:00)
PROC: B24BZZ4 Ultrasonography of Heart with Aorta, Transesophageal (ICD-10-PCS; CPT 93312; principal; 2019-08-11 10:00)
PROC: 5A2204Z Restoration of Cardiac Rhythm, Single (ICD-10-PCS; 2019-08-11 10:00)
DX: I48.0 Paroxysmal atrial fibrillation (principal); I50.23 Acute on chronic systolic (congestive) heart failure; I11.0 Hypertensive heart disease with heart failure; I48.20 Chronic atrial fibrillation, unspecified; N40.1 Benign prostatic hyperplasia with lower urinary tract symptoms; R33.9 Retention of urine, unspecified; R31.0 Gross hematuria; T45.515A Adverse effect of anticoagulants, initial encounter; I25.10 Atherosclerotic heart disease of native coronary artery without angina pectoris; R79.89 Other specified abnormal findings of blood chemistry; M19.91 Primary osteoarthritis, unspecified site; E66.01 Morbid (severe) obesity due to excess calories; I42.0 Dilated cardiomyopathy; Z68.35 Body mass index [BMI] 35.0-35.9, adult; Z79.01 Long term (current) use of anticoagulants; Z98.42 Cataract extraction status, left eye; Z98.41 Cataract extraction status, right eye; Z87.891 Personal history of nicotine dependence
CPT/HCPCS: 36415; 76775; 80048; 80053; 81001; 83735; 84443; 84484; 85025; 85027; 87086; 92960; 93005; 93312; 93320; 93325; 97161; 97165; A9270; C1726; C1757; C1769; C8929; J0282; J0690; J1100; J1940; J2405; J2704; J3010; J7040; J7120; Q9957

== ENCOUNTER 2019-09-21 05:17 | Observation (INO) | payer MEDICARE, MEDICAID, SELFPAY ==
--- NOTE | ~2019-09-21 | CT_ITS ---
EXAMINATION: CT abdomen pelvis w con DATE: 09/21/2019 12:52 INDICATION: Scrotal swelling, erythema and abdominal and groin pain. Gross hematuria. TECHNIQUE: Computed tomography (CT) of the abdomen and pelvis was performed . with 100 mL Omnipaque-3 50 intravenous contrast. Automated exposure control and iterative reconstruction technique were emplo yed. The dose-length product was 1648.40 mGy-cm. COMPARISON: 12/14/2014 FINDINGS: A few small calcified nodules in the right lower lobe consistent with old granulomatous disease. Mild mosaic attenuation and smooth septal line thickening at the bilateral lung bases most likely related to mild pulmonary edema with differential including air trapping related to small airway disease or less likely pneumonia. Mild cardiomegaly. Atherosclerotic coronary artery calcifications. No pericard ial or pleural effusion. Small sliding-type hiatal hernia. Gradient of increasing attenuation in the dependent aspect of the otherwise normal-appearing gallbladder, most likely sludge although gallstone s cannot be absolutely excluded. Liver, spleen, pancreas and bilateral adrenal glands are normal. A f ew cysts in the right kidney the largest measuring 3.8 cm. 2 mm peripheral calcification at a 6 mm lo w-attenuation likely cyst at the lower pole of the right kidney which is too small to definitively ch aracterize.. There is an accessory left renal artery with small focus of atherosclerotic calcificatio n where it enters the left renal hilum. No evident urolithiasis or hydronephrosis. Bowels including t he appendix are normal. Prostatomegaly. Approximately 12 mm nodular region of subtly increased densit y suspicious for enhancing neoplasm in the left trigonal region of the bladder which appears otherwis e normal. No free intraperitoneal gas or fluid. No pathologically enlarged abdominal or pelvic lympha denopathy. Severe lumbar spondylosis. L5 spondylolysis with bilateral pars interarticularis defects a nd 10 mm anterolisthesis with respect to S1. There is also advanced osteoarthritis at the bilateral h ips. Bilateral fat-containing inguinal hernias which on the right extends into the right hemiscrotum. Ther e is a right retroperitoneal hematoma beginning along the posterior pararenal fat at the level of the lower pole of the right kidney and extending into the right inguinal hernia with a larger heterogene ous collection of mixed attenuation within the right scrotum which is also suspicious for hematoma. T here is a separate lower attenuation small hydrocele along side the right testis which is eccentrical ly positioned along side the left testis in the scrotum posterior to the inguinal hernia. An infectio us etiology would also be on the differential but would be considered less likely. No evident soft ti ssue gas. IMPRESSION: 1. Large fat-containing right inguinal hernia extending into the right hemiscrotum with significant a ssociated hemorrhage within the herniated fat which extends cephalad into the right paramedian at the inferior posterior right pararenal space. Differential for the inflammatory change would include inf ection however this is considered significantly less likely and there is no evident soft tissue gas t o suggest necrotizing fasciitis. 2. 12 mm nodule at the left trigonal region of the bladder concerning for urothelial carcinoma. Recom mend cystoscopy when clinically appropriate for further evaluation. 3. Likely mild congestive heart failure with cardiomegaly and mild pulmonary edema at the lung bases. 4. Small sliding-type hiatal hernia. 5. Sludge versus nonobstructing gallstones layering in the dependent aspect of the otherwise normal a ppearing gallbladder. Reviewed, dictated and finalized at location A. IMPRESSION: 1. Large fat-containi
--- NOTE | ~2019-09-21 | XR_ITS ---
EXAMINATION: XR chest 1V portable DATE: 09/21/2019 06:37 INDICATION: Congestive heart failure TECHNIQUE: frontal view of the chest was obtained. COMPARISON: Chest radiograph dated 08/03/2019 FINDINGS: The lungs are clear with no focal airspace opacities, pulmonary edema, pleural effusion or pneumothor ax. Heart size is normal. Tortuous thoracic aorta. Moderate to severe degenerative skeletal changes. IMPRESSION: 1. No acute cardiopulmonary disease. Reviewed, dictated and finalized at location A.
[2019-09-21 05:17] VITALS: BP 149/92; PULSE 94; RESP 22; TEMP 36.9; O2SAT 98
--- NOTE | 2019-09-21 05:48 | ECG_ITS ---
Measurements Intervals [place] Rate: 92 P: UT: 0 QRS: 37 QRSD: 95 T: 54 QT: 381 QTc: 472 Interpretive Statements ATRIAL FIBRILLATION INCOMPLETE RIGHT BUNDLE BRANCH BLOCK ABNORMAL ECG Electronically Signed On 09-21-2019 7:10:08 CDT by Isma Lopez D.O.
--- NOTE | 2019-09-21 05:58 | ED.SKABFB ---
HPI - Skin/Abscess/Foreign Bdy General Chief complaint: Skin/Abscess/Foreign Body Stated complaint: PAIN Source: patient Mode of arrival: EMS Limitations: no limitations History of Present Illness HPI narrative: This is an 79-year-old gentleman presents via EMS from home with some increased lower extremity edema with scrotal edema and redness and burning in the premium, currently has a history of CHF with a ejection fraction of 25% with atrial fibrillation and currently on Eliquis and amiodarone. Patient apparently noncompliant with diet at home, denies dyspnea, no chest pain no fever chills no cough. Does have pitting edema in his lower extremities and up to the scrotal area. Was discharged from [facility] earlier and August with some atrial fibrillation with rapid ventricular response, head NAN performed at that time, with ejection fraction of 25%. Also had episodes of hematuria and had a sister urethral vessel cauterization and irrigation of the bladder for hematuria. Current past medical history includes atrial fibrillation, CHF BPH. Patient unable Harvey down flat at home which is his baseline, there is currently no nausea vomiting no diarrhea constipation. MD complaint: rash Onset (ago): day(s) Tetanus up to date: unsure Location: genitals Severity: moderate Severity scale (1-10): 5 Quality: burning Pain Consistency: intermittent Relieving factors: immobilization Exacerbating factors: movement Treatments prior to arrival: none Related Data Allergies Allergy/AdvReac Type Severity Reaction Status Date / Time No Known Allergies Allergy Verified 08/25/19 10:16 Review of Systems Review of Systems: All systems reviewed & are unremarkable except as noted in HPI and below PMFSH Past Medical History Medical History (Updated 09/21/19 @ 06:58 by Colton Boo MD) A-fib CHF (congestive heart failure) HTN (hypertension) Obesity (BMI 30-39.9) Osteoarthritis involving multiple joints on both sides of body Surgical History Surgical History Hx of cataract removal with insertion of prosthetic lens Family History Family History Mother Family history of type 2 diabetes mellitus Sister Hypertension Father Family history of coronary artery disease Other Family history of cardiovascular disease Social History Social History Smoking packs per day: 3 Smoking cigarettes per day: 60.0 Years smoked: 25 Smoking pack-years: 75.00 Smoking status: Former smoker Tobacco type: cigarettes Smoking end date: 05/20/88 Alcohol intake: former Drinks per week: 5 Substance use: never Gender identity (if verbalized by the patient): Male Spiritual care concerns: No Agree to blood products: Yes Exam Const: General: no acute distress and alert Orientation/consciousness: patient oriented x3 HENMT: Head: normal to inspection Eyes: Conjunctivae: conjunctivae normal Pupils: Equal, round and reactive pupils present EOM: EOMs intact bilaterally Neck: Neck: normal visual inspection and no lymphadenopathy Chest: Chest palpation & inspection: normal inspection of the chest Resp: Effort & Inspection: normal respiratory effort Auscultation: clear to auscultation bilaterally Cardio: Rate: regular rate Rhythm: regular rhythm GI: Auscultation: normal bowel sounds : Scrotum: scrotal swelling Back/Spine/Pelvis: Back: no CVA tenderness Skin: Other: Red moist area b/w his upper thighs Extrem: General: edema ( 2+ pitting edema with scrotal swelling) Psych: Appearance: grossly normal Mental Status: mental status grossly normal Thought content: Yes Normal thought content present Course Vital Signs Vital signs: Vital Signs Temperature 36.9 C 09/21/19 05:17 Pulse Rate 94 09/21/19 05:17 Respiratory Rate 22 H 05
[2019-09-21 06:10] LABS: Basophils Absolute Auto 0.03 K/mm3 (0.00-0.10); Basophils Percent Auto 0.4 % (0.0-1.0); Eosinophils Absolute Auto 0.24 K/mm3 (0.02-0.50); Eosinophils Percent Auto 2.9 % (1.0-6.0); Hematocrit 38.5 % (37.0-46.0); Hemoglobin 12.3 g/dL (12.4-15.3); Immature Granulocyte Absolute 0.04 K/mm3 (0.00-0.00); Immature Granulocyte Percent A 0.5 % (0.0-0.0); Lymphocytes Absolute Auto 1.23 K/mm3 (1.10-4.50); Lymphocytes Percent Auto 14.7 % (18.0-42.0); Mean Corpuscular HGB Conc 31.9 g/dL (32.0-36.0); Mean Corpuscular Hemoglobin 31.5 pg (27.0-31.0); Mean Corpuscular Volume 98.7 fL (78.0-102.0); Mean Platelet Volume 10.8 fl (8.7-11.0); Monocytes Percent Auto 7.2 % (2.0-11.0); Neutrophils Absolute Auto 6.2 K/mm3 (1.7-7.2); Neutrophils Percent Auto 74.3 % (50.0-70.0); Platelet Count Result 240 K/mm3 (150-420); Red Cell Distribution Width 16.1 % (11.6-14.4); White Blood Count 8.4 K/mm3 (4.8-10.8)
[2019-09-21 06:26] LABS: Partial Thromboplastin Time 29.4 SEC (22.3-31.6)
[2019-09-21 06:30] LABS: BNP 634 pg/mL (0-100)
--- NOTE | 2019-09-21 06:33 | PC.NURSE ---
pt watching tv. call agarwal in reach, side rails elevated x2. awaiting lab results.
[2019-09-21 06:46] LABS: Lactic Acid Reflex 1.9 mmol/L (0.4-2.0)
[2019-09-21 06:53] LABS: Alanine Aminotransferase 17 U/L (16-63); Albumin Level 3.1 g/dL (3.4-5.0); Alkaline Phosphatase 72 U/L (46-116); Anion Gap 14.3 mmol/L (7-16); Aspartate Amino Transferase 15 U/L (15-37); Bilirubin,Total 0.4 mg/dL (0.00-1.00); Blood Urea Nitrogen 13 mg/dL (7-18); Calcium 8.5 mg/dL (8.5-10.1); Carbon Dioxide 28 mmol/L (21-32); Chloride 106 mmol/L (98-108); Estimated CRCL calculation 64 ml/min; Estimated Glomerular Filt Rate > 60; Glucose 96 mg/dL (70-99); Magnesium 1.9 mg/dL (1.8-2.4); Osmolality Calculated 298 mOsm/kg (285-295); Potassium 4.3 mmol/L (3.5-5.1); Sodium 144 mmol/L (136-145); Total Protein 6.7 g/dL (6.4-8.2); Troponin I < 0.02 ng/mL (0.00-0.056)
--- NOTE | 2019-09-21 06:57 | PC.NURSE ---
call to floor for morris funk pt chart for admission. will return call after report.
--- NOTE | 2019-09-21 07:39 | PC.NURSE ---
hold insertion of plasencia per dr strong
[2019-09-21] MEDS: FUROSEMIDE INJ 40 MG/4 ML VIAL IV PUSH (07:50)
[2019-09-21 07:55] VITALS: BP 118/74; PULSE 102; RESP 20; TEMP 37.2; O2SAT 99
[2019-09-21 08:00] VITALS: PULSE 115
[2019-09-21 08:27] LABS: Add Urine Microscopic? YES; Appearance Urine Clear (Clear); Bilirubin Urine Negative (Negative); Blood Urine 1+ (Negative); Color Urine Yellow (Yellow); Glucose Urine UA Negative (Negative); Ketones Urine Negative (Negative); Leukocyte Esterase Ur Negative LEU/UL (Negative); Nitrate Urine Negative (Negative); Protein Urine Negative (Negative); Specific Grav Ur 1.025 (1.010-1.020); Urobilinogen Urine 0.2 mg/dL (0.2-1.0)
[2019-09-21 08:33] LABS: Bacteria Urine 2+ /hpf; Mucus Urine Few /lpf; Squamous Epithelial Cell Urine Few /hpf (Few)
--- NOTE | 2019-09-21 09:05 | PM.IMHP ---
H&P: HPI History of Present Illness Chief complaint: PAIN Narrative: Neida Mondragon is a 79 year old male admitted via EMS from home with some increased lower extremity edema (CHF exacerbation with severe systolic heart failure), scrotal edema, internal burning type pain to right groin and to right scrotum, and redness and burning of the perineum and scrotum (possible Melissa infection). He has a Atrial Fibrillation, HTN, Obesity (BMI 30-39.9), Osteoarthritis involving multiple joints on both sides of body, history of CHF with a ejection fraction of 25% with atrial fibrillation and currently on Eliquis and Amiodarone. Patient apparently noncompliant with diet at home, denies dyspnea, no chest pain no fever chills no cough. Has 3+ pitting edema in his lower extremities and up to the scrotal area. Was discharged from [facility] earlier in July or August with some atrial fibrillation with rapid ventricular response, had a NAN performed at that time, with ejection fraction of 25%. Also had episodes of hematuria and had a sister urethral vessel cauterization and irrigation of the bladder for hematuria. Current past medical history includes atrial fibrillation, CHF BPH. Patient unable to law down flat at home due to severe and significant low back pain, chronically, which is his baseline. There is currently no nausea vomiting no diarrhea constipation. He lives at home alone and uses a wheelchair. He was recently discharged home from a [facility] after having been hospitalized at [facility] as well as [facility] in July. During is July visit he experienced hematuria and urinary retention as well as was treated for CHF. Per family and per patient report he is able to maintain decent fluid volume status while on his medications and fluid restricted at the [facility] in hospital, but when he goes home he is unable to maintain the medication and fluid status he needs to to optimize his health. He does not have a scale, and stated he does not weigh himself. He drinks mostly water at home, because his family refuses to bring him soda anymore. Upon my 1st examination this morning, the patient was able to lie in bed at 90? and also at 40 fiber 30?. He is on 2 L of oxygen per nasal cannula. BNP 634 at admission, in July 2019 BNP was 496. EKG showed Afib with incomplete RBBB, no concerning ST elevation or depression. Troponin this morning was WNL and he denies chest pain or pressure or new/worsening shortness of breath. His abdomen is rounded and very distended and firm, not painful, but hypo active sounds throughout and tympanic sounds throughout. His right groin is much firmer, almost hardened, while the rest of his groin and perineum it is just swollen and plump. His scrotum is extremely swollen and tight and hard, with his penis quite retracted. The sheath is able to be pulled back, but with great difficulty. He denies any recent falls, denies any recent trauma, denies having a history of any hernias or any surgery to his abdomen or groin. He continues to have 3+ pitting edema to abdomen, both lower extremities and to scrotum, will continue the daily IV Lasix but would like to get a Blackwood placed for better I and O tracking, due to him stating he is constipated and his substantial bowel distension, I have also ordered Colace/senna/ other constipation relieving medications. Ordered CT scan of the abdomen pelvis and scrotum. Upon my 2nd examination later in the afternoon the patient was in much greater pain at the site of his right groin, than he was earlier. At this time my exam showed a significant bulge to his right groin with a 2-3 cm bulge, that was much more painful to the touch, and the patient is still unable to void at this time. This right groin bulge is nonpulsatile, no bruit evident, bowel sounds are present but could be traveling from his abdomen if there is a hernia communication. He continues to have capillary refill adequate and pa
[2019-09-21] MEDS: METOPROLOL TARTRATE 50 MG TAB 100 MG PO (10:27)
[2019-09-21] MEDS: AMIODARONE HCL 200 MG TABLET 400 MG PO (10:27)
[2019-09-21] MEDS: SPIRONOLACTONE 25 MG TABLET PO (10:27)
[2019-09-21] MEDS: APIXABAN 2.5 MG TABLET 5 MG BY MOUTH (10:28)
[2019-09-21] MEDS: TOLNAFTATE 1% POWDER 45 GM BTL 1 APPLIC TOPICAL (10:30)
[2019-09-21 12:00] VITALS: PULSE 104
[2019-09-21 12:57] LABS: Hemoglobin A1C 5.9 % (<5.7)
--- NOTE | 2019-09-21 13:30 | PC.NURSE ---
Veronique Adkins attempted to insert plasencia Catheter, 16F and a 12 FR without success. Selma Hauser RN attempted to start a plasencia catheter using a kuda tip, all attempts were unsuccessful. Right groin/perinium tender, swollen, and hard. patient complaining of severe pain. MSO4 already given will follow-up with patient to re-access pain.
[2019-09-21] MEDS: MORPHINE SULFATE 2 MG/ML INJ IV PUSH (13:39)
[2019-09-21 14:00] VITALS: BP 142/90; PULSE 104; RESP 22; TEMP 35.9; O2SAT 97
[2019-09-21 14:05] VITALS: PULSE 94
--- NOTE | 2019-09-21 14:51 | PC.NURSE ---
Report given to Amara Nelson on 3rd medsurg at [facility].
[2019-09-21] MEDS: HYDROMORPHONE HCL 2 MG/ML VIAL 1 MG IV PUSH (14:55)
--- NOTE | 2019-09-21 15:00 | PM.DS ---
DS: Diagnosis Discharge Diagnosis (1) Retroperitoneal bleed: Code(s): R58 - Hemorrhage, not elsewhere classified Status: Acute Assessment and Plan: CT scan of abdomen pelvis with contrast completed today around noon showed a large fat containing inguinal hernia with significant associated hemorrhage with in the fat that extended into the right paramedian and inferior posterior right perineal space now holding his b.i.d. Eliquis, but he did receive this morning's dose already will need to continue monitoring CBCs, to see if his H&H drops, H&H testing every 6 hours for the 1st day to rule out acute bleeding continue to treat his pain continue to hold medications that would cause increased bleeding avoid PT OT at this time, place patient on bed rest hemoglobin was 12.3 this morning and his hematocrit was 38.5, platelets 240 changed to NPO status would appreciated general surgeon consultation and have contacted [facility] for possible transfer (2) Congestive heart failure with left ventricular diastolic dysfunction: Code(s): I50.30 - Unspecified diastolic (congestive) heart failure Status: Acute Assessment and Plan: acute on chronic CHF patient not compliant and or not understanding how is to control his CHF at home 3+ pitting edema evident from the waist down BNP elevated at 634 patient takes 20 of oral Lasix at home, he was started on 40 IV Lasix at ER admission will continue the 40 IV Lasix and see if that is enough diuresis he would benefit from using incentive spirometer as his CT scan shows some pulmonary edema at his lung bases August 04, 2019 ECHO, EF was 20-25% would appreciated Mammography Technologist consultation and have contacted [facility] for possible transfer holding his Eliquis, continuing home dose of amiodarone and spironolactone and metoprolol (3) Urothelial lesion: Code(s): N39.8 - Other specified disorders of urinary system Status: Acute Assessment and Plan: patient was examined by Dr. Collins in July on a couple of different days during his hospitalization is at that time the urologist had been consulted at that time for the hematuria and urinary retention CT scan this afternoon all show shows a 12 mm nodule at the left trigonal region of the bladder with concerns for urothelial carcinoma and the radiologist recommended cystoscopy hemoglobin was 12.3 this morning and his hematocrit was 38.5, platelets 240 would appreciate a urology consult and have contacted [facility] for possible transfer (4) Urinary retention: Code(s): R33.9 - Retention of urine, unspecified Status: Acute Assessment and Plan: patient was examined by Dr. Collins in July on a couple of different days during his hospitalization is at that time the urologist had been consulted at that time for the hematuria and urinary retention today he appears to continue having urinary retention issues and we have been unable to pass a Blackwood catheter into his bladder due to his edema and hernias, the bladder scan has been an ineffective tool for assessing his urine volume White count is 8.4 today with no evidence of fevers or chills continue his home dose of Terazosin and Proscar would appreciate a urology consult and have contacted [facility] for possible transfer (5) Scrotal edema: Code(s): N50.89 - Other specified disorders of the male genital organs Status: Acute Assessment and Plan: significantly painful for the patient requiring IV pain medication, at in increasing doses may be a result of multifactorial reasons, including: uncontrolled CHF with abdominal and lower extremity edema of great significance, possible groin Candidia infection, significant urinary retention leading to groin and lower abdominal swelling, and/or retroperitoneal bleed extending into groin and scrotum due to already present hernias. continue pain control
== END 2019-09-21 15:40 | disposition short-term general hospital (02) ==
LOC: CHSED 07:51 → CHS2ND 07:52
PROVIDERS: Emergency Medicine; Nurse Practitioner; Admitting Provider Emergency Medicine; Emergency Provider Emergency Medicine; Visit Provider Emergency Medicine
DX: R58 Hemorrhage, not elsewhere classified (principal); K40.20 Bilateral inguinal hernia, without obstruction or gangrene, not specified as recurrent; B37.9 Candidiasis, unspecified; I11.0 Hypertensive heart disease with heart failure; I50.20 Unspecified systolic (congestive) heart failure; N50.89 Other specified disorders of the male genital organs; R33.8 Other retention of urine; N40.1 Benign prostatic hyperplasia with lower urinary tract symptoms; N40.0 Benign prostatic hyperplasia without lower urinary tract symptoms; N39.0 Urinary tract infection, site not specified; I48.20 Chronic atrial fibrillation, unspecified; M19.90 Unspecified osteoarthritis, unspecified site; M54.5 Low back pain; E66.9 Obesity, unspecified; N32.9 Bladder disorder, unspecified; Z79.01 Long term (current) use of anticoagulants; Z87.891 Personal history of nicotine dependence
CPT/HCPCS: 36415; 51701; 71045; 74177; 80053; 81001; 83036; 83605; 83735; 83880; 84484; 85025; 85730; 87040; 87086; 87088; 93005; 96365; 96374; 96375; 99285; A9270; G0378; J0696; J1170; J1940; J2270; Q9965

== ENCOUNTER 2019-09-21 17:21 | Inpatient (IN) | payer MEDICARE, MEDICAID, SELFPAY ==
[2019-09-21 17:02] VITALS: BMI 35.9
--- NOTE | 2019-09-21 17:08 | ADMGEN ---
This patient, Neida Mondragon, was admitted to [facility] Surg Room 304-01. Patient/family oriented to hospital policies and general routines including ID bracelet, bed and alarms, visiting hours, pain management, procedures, bathroom and other care routines, personal items, smoking policy, room service/diet, and visiting hours. Valuables list has been completed. Information on how to activate the Rapid Response Team has been discussed. Patient/Family are encouraged to report perceived risks to care and to ask questions if they do not understand what they are told or what they should do. pt a direct transfer from [facility]
[2019-09-21] MEDS: HYDROMORPHONE HCL 1 MG/ML INJ IV PUSH (17:46)
[2019-09-21 18:19] LABS: Basophils Percent Auto 0.2 % (0.2-1.2); Eosinophils Absolute Auto 0.1 K/mm3 (0-0.3); Eosinophils Percent Auto 0.6 % (0-4.4); Hematocrit 36.6 % (42.0-52.0); Hemoglobin 11.6 g/dL (14.0-18.0); Immature Granulocyte Absolute 0.03 K/mm3 (0.00-0.031); Immature Granulocyte Percent A 0.3 % (0-0.5); Lymphocytes Absolute Auto 0.92 K/mm3 (0.9-3.2); Mean Corpuscular HGB Conc 31.7 g/dl (32-36); Mean Corpuscular Hemoglobin 31.1 pg (26-34); Mean Corpuscular Volume 98.1 fl (80-100); Mean Platelet Volume 12.2 fl (7.4-10.4); Monocytes Absolute Auto 0.7 K/mm3 (0.1-0.6); Monocytes Percent Auto 6.2 % (2.6-8.5); Neutrophils Absolute Auto 9.7 K/mm3 (1.3-6.7); Neutrophils Percent Auto 84.7 % (45.5-73.1); Platelet Count Result 266 k/mm3 (150-375); Red Blood Count 3.73 M/mm3 (4.6-6.20); Red Cell Distribution Width 16.3 % (11.5-14.5); White Blood Count 11.5 K/mm3 (4.5-10.0)
[2019-09-21 18:29] LABS: INR 1.3; Prothrombin Time 15.5 Seconds (11.1-14.7)
[2019-09-21 18:30] LABS: Partial Thromboplastin Time 39.5 SECONDS (22.3-36.8)
--- NOTE | 2019-09-21 18:30 | PM.IMHP ---
H&P: HPI History of Present Illness Chief complaint: Retroperitoneal hematoma, urinary retention. Narrative: Neida Mondragon is an 79-year-old male with dilated cardiomyopathy, on long-term anticoagulation, hypertension, and benign prostatic hyperplasia with history of urinary retention who is being directly admitted to the hospitalist service from the medical floor a [facility] for further treatment of retroperitoneal hematoma, right inguinal hernia, bladder noduel, and urinary retention. He is known to our service as he was admitted to us about a month and half ago with atrial fibrillation/rapid ventricular response as well as a congestive heart failure. At that time he was found to have a severe, dilated cardiomyopathy with an ejection fraction of 25%, and he was started on Entresto and spironolactone. Cardioversion was attempted, with brief holiness of the sinus bradycardia however he was back in atrial fibrillation with in approximately 10 minutes time. Additionally, his apixaban was held for a short period of time due to the development of hematuria in which she underwent cystoscopy with cautery of oozing vessels. Apixaban was resumed and he has had no issues with hematuria since that time. In any event, he presented to the emergency department at [facility] earlier this morning via EMS for evaluation of increasing lower extremity edema, scrotal edema, and pain more so in the right scrotum. Pertinent labs done at time of presentation include a white blood cell count of 8.4, hemoglobin 12.3, hematocrit 38.5, platelets 240, sodium 144, potassium 4.3, BUN 13, creatinine 0.99, glucose 96, magnesium 1.9, total bilirubin 0.4, AST 15, ALT 17, alkaline phosphatase 72, troponin < 0.02, BNP 634. UA showed a few WBCs and 2+ bacteria. Chest x-ray showed no acute cardiopulmonary disease. He was admitted to the medical floor at [place] with a diagnosis of edema and congestive heart failure. Later in the afternoon, he began complaining of severe pain in his right groin, and a subsequent CT of the abdomen pelvis showed a large fat containing right inguinal hernia extending into the right hemiscrotum as well as a right retroperitoneal hematoma that appears to extend into the right scrotum. Transfer was then initiated to [place] for consultation with general surgeon, Dr. Abreu and urology. It is also noted that he was reportedly retaining urine, and attempted Blackwood catheter placement by several individuals was unsuccessful. At the time my evaluation, bladder scan demonstrated a little over 550 milliliters of urine in the bladder, of which he was able to void nearly 200 milliliters. Currently he is sitting in bed eating dinner and is in good spirits. He has pain mostly in the right inguinal region, that he has a difficult time describing. Pain is currently rated 3/10 and he gives no significant aggravating factors besides palpation. He denies fever, chills, and sweats. No chest pain, palpitations, pleuritic pain, or shortness of breath. He denies orthopnea (patient always sleeps on his side) but has occasional PND. His lower extremity edema has been stable, it sounds as though he tries to elevate his feet. It does not sound like he follows a low-sodium diet, however. States compliance with his medications. Review of Systems Review of Systems: Narrative: Twelve systems were reviewed with pertinent positives and negatives as per HPI. No fever, chills, or sweats. No recent cold or flu symptoms. Denies cough. No dysuria or hematuria. He does suffer symptoms of BPH to include decreased stream initially and dribbling towards the end of urination. He does not feel that his abdomen is more distended than usual. No nausea, vomiting, or diarrhea. Except as documented, all other systems were reviewed and are negative. [facility] Past Medical History Medical History (Updated 09/21/19 @ 21:38 by Yoana Blake PA-C) Anxiety Benign
[2019-09-21] MEDS: MELATONIN 3 MG TABLET PO (21:43)
[2019-09-21] MEDS: TERAZOSIN HCL 1 MG CAPSULE 4 MG PO (21:53)
[2019-09-21] MEDS: SACUBITRIL/VALSARTAN 24-26 MG TABLET 1 TAB PO (21:59)
[2019-09-21 22:00] VITALS: BP 124/84; PULSE 106; RESP 16; TEMP 36.8; O2SAT 96
[2019-09-21 22:05] VITALS: PULSE 82
[2019-09-21] MEDS: METOPROLOL TARTRATE 50 MG TAB 100 MG PO (22:05)
--- NOTE | 2019-09-21 23:17 | PM.EVENT ---
Event Note Event Note Event Note: Patient complains of pain and pressure in his groin. Describes it as burning. Patient denies vomiting or fever. Scrotum is tense and tender with minimal erythema. Lungs are clear to auscultation bilaterally. Irregularly irregular pulse which is full and symmetric. 3+ pitting edema in the lower extremities bilaterally. Exam and subsequent CT suggest herniation into the scrotum via the inguinal canal. Patient is also having urinary retention with several failed attempts at catheterization. Surgical and urologic evaluation is needed. I have examined the patient and reviewed the chart. I discussed the patient's care with A Jed LOWRY and agree with her assessment and plan.
[2019-09-22] VITALS (15 sets, daily range): BP systolic 90–112; BP diastolic 50–85; PULSE 88–110; RESP 14–22; TEMP 36.4–36.8; O2SAT 92–100
[2019-09-22] MEDS: HYDROMORPHONE HCL 1 MG/ML INJ 0.5 MG IV PUSH (02:36)
[2019-09-22 07:32] LABS: Basophils Percent Auto 0.1 % (0.2-1.2); Eosinophils Absolute Auto 0.1 K/mm3 (0-0.3); Eosinophils Percent Auto 0.7 % (0-4.4); Hematocrit 31.2 % (42.0-52.0); Immature Granulocyte Absolute 0.04 K/mm3 (0.00-0.031); Immature Granulocyte Percent A 0.4 % (0-0.5); Lymphocytes Absolute Auto 0.79 K/mm3 (0.9-3.2); Lymphocytes Percent Auto 8.8 % (18.3-44.2); Mean Corpuscular HGB Conc 32.1 g/dl (32-36); Mean Corpuscular Hemoglobin 31.4 pg (26-34); Mean Corpuscular Volume 98.1 fl (80-100); Mean Platelet Volume 11.7 fl (7.4-10.4); Monocytes Absolute Auto 0.8 K/mm3 (0.1-0.6); Monocytes Percent Auto 8.8 % (2.6-8.5); Neutrophils Absolute Auto 7.3 K/mm3 (1.3-6.7); Neutrophils Percent Auto 81.2 % (45.5-73.1); Platelet Count Result 208 k/mm3 (150-375); Red Blood Count 3.18 M/mm3 (4.6-6.20); Red Cell Distribution Width 16.3 % (11.5-14.5)
[2019-09-22 07:42] LABS: INR 1.4; Partial Thromboplastin Time 36.5 SECONDS (22.3-36.8); Prothrombin Time 16.4 Seconds (11.1-14.7)
--- NOTE | 2019-09-22 07:42 | WPDURCON ---
Assessment and Plan Assessment and plan (1) Urinary retention: Code(s): R33.9 - Retention of urine, unspecified Status: Acute Assessment and Plan: Plan for cystoscopy with possible clot evacuation and Blackwood placement in the operative suite. (2) Edema: Qualifiers: Edema type: unspecified Qualified Code(s): R60.9 - Edema, unspecified Code(s): R60.9 - Edema, unspecified Status: Acute Assessment and Plan: Will require scrotal elevation and ice pack to scrotum. (3) Retroperitoneal hematoma: Code(s): K66.1 - Hemoperitoneum Status: Acute Assessment and Plan: Etiology unclear but has been on Eliquis. This is currently being held in H&H is being followed. (4) Right inguinal hernia: Code(s): K40.90 - Unilateral inguinal hernia, without obstruction or gangrene, not specified as recurrent Status: Acute Assessment and Plan: As per General surgery Urology Consult Note HPI Date Seen: 09/22/19 Time Seen: 07:43 Requesting Physician: Luis Baptiste MD Primary Care Provider: UNKNOWN,DOCTOR Consult Narrative Reason for consult: Urinary retention with hematuria Narrative: Neida Mondragon is a 79 year old male who actually had seen Dr. Collins in July. At that time he had retention with gross hematuria. He now presented to [facility] the ER with discomfort in his groin area. A CT scan revealed what was described as a hernia on the right with a hematoma extending up into his retroperitoneal area. General surgery has been consulted. Multiple attempts at Blackwood catheter placement were made in [place]. He was transferred here last night for further surgical and urologic evaluation. He is voiding small amounts with residuals anywhere from 350-400 cc. [facility] Past Medical History Medical History (Updated 09/21/19 @ 21:38 by Yoana Blake PA-C) Anxiety Benign prostatic hyperplasia With history of urinary retention. Chronic atrial fibrillation Failed DC cardioversion in July 2019. He is on apixaban and amiodarone. Current use of termite exterminator helper anticoagulation Dilated cardiomyopathy Echocardiogram on August 03, 2019 showed a mildly enlarged left ventricular chamber, severely reduced left ventricular systolic function with an estimated ejection fraction of 20 to 25%, mildly increased left ventricular wall thickness, indeterminate left ventricular diastolic function, mild left atrial enlargement, mild aortic valve sclerosis, mild mitral valve regurgitation, and mild tricuspid valve regurgitation. Dyslipidemia Essential hypertension Gallstones without obstruction of gallbladder History of skin cancer Obesity (BMI 30-39.9) Osteoarthritis Sliding hiatal hernia Systolic congestive heart failure Ejection fraction estimated 20 25% on echocardiogram in July 2019. Surgical History Surgical History (Updated 09/21/19 @ 21:25 by Yoana Blake PA-C) History of cataract extraction Family History Family History Mother Family history of type 2 diabetes mellitus Sister Hypertension Father Family history of coronary artery disease Other Family history of cardiovascular disease Social History Social History (Updated 09/21/19 @ 21:26 by Yoana Blake PA-C) Social History: The patient lives in [place], [place]. He has been for the past 11 years. He and his had 4 children, who are relatively healthy. He is retired from working in construction. He smoked up to 3 pack of cigarettes per day for about 35 years and quit in 1988. He used to drink heavily, and quit drinking at the same time that he quit smoking. No drug use. He designates his daughter Leah as his surrogate decision maker. He wishes to be a do not resuscitate. Smoking packs per day: 3 Smoking cigarettes per day: 60.0 Years smoked: 40 Smoking pack-years: 120.00 Smoking end date: 05/20/88
[2019-09-22 07:48] LABS: Alanine Aminotransferase 12 U/L (4-50); Albumin Level 3.3 g/dL (3.5-5.1); Alkaline Phosphatase 63 U/L (38-126); Aspartate Amino Transferase 17 U/L (17-59); Bilirubin,Total 0.9 mg/dL (0.2-1.3); Blood Urea Nitrogen 17 mg/dL (9-20); Calcium 8.3 mg/dL (8.4-10.2); Carbon Dioxide 29 mmol/L (22-30); Chloride 103 mmol/L (98-107); Estimated CRCL calculation 69 ml/min; Estimated Glomerular Filt Rate > 60; Glucose 125 mg/dL (75-110); Sodium 137 mmol/L (137-145)
--- NOTE | 2019-09-22 08:40 | PC.NURSE ---
To OR via stretcher.
--- NOTE | 2019-09-22 08:57 | WPDANESEPPF ---
Anes - Initial Pre Proc Eval Procedure: Operation Date: 09/22/19 12:00 Proposed Procedures p Cystoscopy, Evacuation Bladder Clots, Blackwood Catheter Placement - Sal Ledesma MD Date/Time: 09/22/19 08:57 Surgeon: Luis Baptiste MD Pre Op Diagnosis: Retroperitoneal hematoma, urinary retention. Patient Data Age: 79 Gender: M Height: 5 ft 9 in Weight: 111.2 kg Last Vital Signs Temp 36.7 C 09/22/19 06:00 Pulse 99 09/22/19 06:00 Resp 20 09/22/19 06:00 BP 100/50 L 09/22/19 06:00 Pulse Ox 98 09/22/19 06:00 Allergies Allergy/AdvReac Type Severity Reaction Status Date / Time No Known Allergies Allergy Verified 09/22/19 08:58 Home Medications Medication Instructions Recorded Confirmed Type apixaban 5 mg tablet 5 mg PO BID #60 tablet 06/01/19 09/21/19 Rx acetaminophen [Mapap 650 mg PO Q4H PRN 30 Days tablet 08/13/19 09/21/19 Rx (acetaminophen)] hydrocodone-acetaminophen 1 tablet PO Q8H PRN #90 tablet 08/13/19 09/21/19 Rx magnesium hydroxide [Milk of 30 ml PO DAILY PRN 30 Days ml 08/13/19 09/21/19 Rx Magnesia] finasteride 5 mg tablet 5 mg PO QAM #30 tablet 09/04/19 09/21/19 Rx amiodarone 200 mg tablet 400 mg PO DAILY #180 tablet 09/07/19 09/21/19 Rx sacubitril 24 mg-valsartan 26 mg 1 tablet PO Q12HR #90 tablet 09/07/19 09/21/19 Rx tablet melatonin 3 mg tablet 3 mg PO HS 30 Days #30 tablet 09/08/19 09/21/19 Rx metoprolol tartrate 50 mg tablet 100 mg PO Q12HR #60 tablet 09/08/19 09/21/19 Rx terazosin 1 mg capsule 4 mg PO HS #30 cap 09/08/19 09/21/19 Rx spironolactone 25 mg tablet 25 mg PO DAILY #30 tablet 09/09/19 09/21/19 Rx furosemide 20 mg tablet 20 mg PO DAILY #30 tablet 09/18/19 09/21/19 Rx bisacodyl [Laxative (bisacodyl)] 5 mg PO QAM PRN 5 Days tablet 09/21/19 09/21/19 Rx ceftriaxone 1 g IV Q24H #1 each 09/21/19 09/21/19 Rx sennosides-docusate sodium 1 tab PO DAILY #5 tablet 09/21/19 Rx [Senokot-S] tolnaftate 1 applic TOPICAL Q12HR 5 Days gm 09/21/19 09/22/19 Rx Laboratory Tests 09/21/19 09/21/19 09/22/19 18:01 18:01 07:09 WBC 11.5 K/mm3 H K/mm3 9.0 K/mm3 K/mm3 (4.5-10.0) (4.5-10.0) RBC 3.73 M/mm3 L M/mm3 3.18 M/mm3 L M/mm3 (4.6-6.20) (4.6-6.20) Hgb 11.6 g/dL L g/dL 10.0 g/dL L g/dL (14.0-18.0) (14.0-18.0) Hct 36.6 % L % 31.2 % L % (42.0-52.0) (42.0-52.0) MCV 98.1 fl fl 98.1 fl fl (80-100) (80-100) MCH 31.1 pg pg 31.4 pg pg (26-34) (26-34) MCHC 31.7 g/dl L g/dl 32.1 g/dl g/dl (32-36) (32-36) RDW 16.3 % H % 16.3 % H % (11.5-14.5) (11.5-14.5) Plt Count 266 k/mm3 k/mm3 208 k/mm3 k/mm3 (150-375) (150-375) MPV 12.2 fl H fl 11.7 fl H fl (7.4-10.4) (7.4-10.4) Immature Gran % (Auto) 0.3 % % 0.4 % % (0-0.5) (0-0.5) Neut % (Auto) 84.7 % H % 81.2 % H % (45.5-73.1) (45.5-73.1) Lymph % (Auto) 8.0 % L % 8.8 % L % (18.3-44.2) (18.3-44.2) [place] % (Auto) 6.2 % % 8.8 % H % (2.6-8.5) (2.6-8.5) Eos % (Auto) 0.6 % % 0.7 % % (0-4.4) (0-4.4) Baso % (Auto) 0.2 % % 0.1 % L % (0.2-1.2) (0.2-1.2) Lymph # (Auto) 0.92 K/mm3 K/mm3 0.79 K/mm3 L K/mm3 (0.9-3.2) (0.9-3.2) [place] # (Auto) 0.7 K/mm3 H K/mm3 0.8 K/mm3 H K/mm3 (0.1-0.6) (0.1-0.6) Eos # (Auto) 0.1 K/mm3 K/mm3 0.1 K/mm3 K/mm3 (0-0.3) (0-0.3) Baso # (Auto) 0.0 K/mm3 K/mm3 0.0 K/mm3 K/mm3 (0.0-0.1) (0.0-0.1) Abs Immat Gran (auto) 0.03 K/mm3 K/mm3 0.04 K/mm3 H K/mm3 (0.00-0.031) (0.00-0.031) Absolute Neuts (auto) 9.7 K/mm3 H K/mm3 7.3 K/mm3 H K/mm3 (1.3-6.7) (1.3-6.7) Absolute Nucleated RBC 0.0 K/mm3 K/mm3 0.0 K/mm3 K/mm3 (0.0-0.012) (0.0-0.012) Nucleated RBC % 0.0 % % 0.0 % % (0.0-0.2) (0.0-0.2) PT 15.5 Seconds H Seconds (11.1-14.7) INR 1.3 APTT 39.5 SECONDS H SECONDS (22.3-36.8) Sodium Potassium Chloride
[2019-09-22] MEDS: ONDANSETRON INJ 4 MG/2 ML VIAL IV PUSH (09:00)
[2019-09-22] MEDS: FAMOTIDINE 20 MG/2 ML VIAL IV PUSH (09:00)
[2019-09-22] MEDS: LACTATED RINGERS 1,000 ML 30 ML IV CONT (09:00)
[2019-09-22] MEDS: LIDOCAINE HCL 2% GEL UROJET 10 ML PKG MUCOUS MEM (09:53)
--- NOTE | 2019-09-22 10:00 | P.OP_ITS ---
Procedure Note - Detailed Date of procedure: 09/22/19 Pre-op diagnosis: Retroperitoneal hematoma, urinary retention. Post-op diagnosis: same (Meatal stricture) Procedure performed: Dilation of fossa navicularis stricture 2 cystoscopy 3. Blackwood catheter placement Description of procedure: Patient was taken to the operative suite and correctly identified. Once general anesthesia was obtained he was placed in a dorsal lithotomy position prepped and draped usual sterile fashion. He has a very enlarged right hemiscrotum secondary to the hernia as well as hematoma. It was noted immediately that the scope would not pass as he has a fossa navicularis meatal stricture. We dilated this using sounds up to 24 B[place]udian. Twenty-two Bermudian scope was then inserted directly into the bladder. It was obvious that the urethra was somewhat deviated secondary to the scrotal hematoma. His prostate is significantly enlarged with a median lobe. Upon entering the bladder there is no tumors or clots noted at this time. 2% viscous lidocaine was then inserted into the urethra. Twenty [address] was placed and connected to continuous bladder irrigation. This can be weaned to off as his urine clears. Would hold off on removal of Blackwood catheter until his right groin hernia/hematoma resolves. It did not appear that he had a significant amount of urine in his bladder upon placement of the scope. Anesthesia: GLMA Surgeon: Sal Ledesma MD Drains: Yes Packing: No Pathology: none sent Complications: No immediate complications Condition: stable Disposition: PACU
--- NOTE | 2019-09-22 11:05 | PC.NURSE ---
Back from OR via stretcher.
[2019-09-22] MEDS: TOLNAFTATE 1% POWDER 45 GM BTL 1 APPLIC TOPICAL ×2 (12:43→20:13)
[2019-09-22] MEDS: FUROSEMIDE 20 MG TABLET PO (13:13)
[2019-09-22] MEDS: METOPROLOL TARTRATE 50 MG TAB 100 MG PO ×2 (13:13→20:10)
[2019-09-22] MEDS: SACUBITRIL/VALSARTAN 24-26 MG TABLET 1 TAB PO ×2 (13:13→20:09)
[2019-09-22] MEDS: AMIODARONE HCL 200 MG TABLET 400 MG PO (13:14)
[2019-09-22] MEDS: SPIRONOLACTONE 25 MG TABLET PO (13:14)
[2019-09-22] MEDS: FINASTERIDE 5 MG TABLET PO (13:14)
--- NOTE | 2019-09-22 14:57 | PM.CNGS ---
Assessment and Plan Assessment and plan (1) Retroperitoneal hematoma: Code(s): K66.1 - Hemoperitoneum Status: Acute Assessment and Plan: CT scan reviewed and discussed with the patient in detail. He has evidence of a retroperitoneal hematoma that extends into a fat-containing right inguinal hernia. On exam, the right inguinal hernia is not reducible but this is likely because of the amount of edema around this area and how tender he is on exam. There is no evidence on the CT of bowel inside the hernia. There is no indication for emergent surgery at this time. His anticoagulation has been held and we would recommend that this remain on hold for now. Continue PRN analgesics to help keep him comfortable. We will continue to monitor this over the next few days and hopefully the hernia can be reduced after some of the edema has subsided. The patient has multiple co-morbidities putting him at a high risk for surgery. I discussed with the patient that even once the hematoma has absorbed and resolved, he would be a very high risk surgical candidate to repair this right inguinal hernia. The patient verbalized understanding and all questions were answered. Thank you for allowing me to see the patient in consultation and we will continue to follow along with you. (2) Right inguinal hernia: Code(s): K40.90 - Unilateral inguinal hernia, without obstruction or gangrene, not specified as recurrent Status: Acute Assessment and Plan: See plan above. (3) Current use of technician terminal and repeater anticoagulation: Code(s): Z79.01 - salvage determiner (current) use of anticoagulants Status: Acute Assessment and Plan: Currently on hold. (4) Chronic atrial fibrillation: Code(s): I48.20 - Chronic atrial fibrillation, unspecified Status: Acute (5) Urinary retention: Code(s): R33.9 - Retention of urine, unspecified Status: Acute Assessment and Plan: Urology consulted and recommendations appreciated. Urethral deviation noted during cystoscopy due to the hematoma. Recommendations noted to keep Blackwood catheter in place until hematoma has resolved. (6) Scrotal edema: Code(s): N50.89 - Other specified disorders of the male genital organs Status: Acute Assessment and Plan: Recommend scrotal elevation. Urology following. (7) Dilated cardiomyopathy: Code(s): I42.0 - Dilated cardiomyopathy Status: Acute (8) CHF (congestive heart failure): Qualifiers: Heart failure chronicity: acute Heart failure type: systolic Qualified Code(s): I50.21 - Acute systolic (congestive) heart failure Code(s): I50.9 - Heart failure, unspecified Status: Acute Assessment and Plan: EF estimated at 20-25%. Increases his risk for surgery. (9) Obesity (BMI 30-39.9): Code(s): E66.9 - Obesity, unspecified Status: Acute Assessment and Plan: Increases risks for surgery. (10) Benign prostatic hyperplasia: Code(s): N40.0 - Benign prostatic hyperplasia without lower urinary tract symptoms Status: Acute (11) Umbilical hernia without obstruction and without gangrene: Code(s): K42.9 - Umbilical hernia without obstruction or gangrene Status: Acute Assessment and Plan: Reducible non-tender umbilical hernia noted on exam. Not contributing to his acute issues and with no surgical indication at this time. Additional Plan Discussed the patient's case and formulated the plan of care with Dr. Abreu. History of Present Illness Consult details Consult date: 09/22/19 Reason for consult: other (Retroperitoneal hematoma extending into a right inguinal hernia) Requesting physician: Yoana Blake PA-C Narrative: This is a 79-year-old male who was directly admitted to [facility] from the medical floor of the [facility] for treatment of a retroperitoneal hematoma extending into a right inguinal hernia, blad
--- NOTE | 2019-09-22 15:42 | P.PNIM_ITS ---
Progress Note: A&P Assessment and Plan (1) Retroperitoneal hematoma: Code(s): K66.1 - Hemoperitoneum Status: Acute Assessment and Plan: * Apixaban has been placed on hold and we will monitor hemoglobin/hematocrit. * Dr. Abreu has been consulted and will continue with conservative management (2) Right inguinal hernia: Code(s): K40.90 - Unilateral inguinal hernia, without obstruction or gangrene, not specified as recurrent Status: Acute Assessment and Plan: * CT shows a large fat containing right inguinal hernia extending into the right hemiscrotum with associated hemorrhage within the fat. * Plan is as detailed above. (3) Systolic congestive heart failure: Code(s): I50.20 - Unspecified systolic (congestive) heart failure Status: Acute Assessment and Plan: * Reasonably well compensated. * Will continue with p.o. furosemide and spironolactone. * Continue to monitor volume status closely. (4) Chronic atrial fibrillation: Code(s): I48.20 - Chronic atrial fibrillation, unspecified Status: Acute Assessment and Plan: * He is rate controlled on amiodarone. * Apixaban on hold given retroperitoneal hematoma. And with the hematuria he had last visit the [place] suggest sees not a candidate for anticoagulation (5) Current use of fpc anticoagulation: Code(s): Z79.01 - halfway (current) use of anticoagulants Status: Acute Assessment and Plan: * As above, apixaban is on hold currently. (6) Benign prostatic hyperplasia: Code(s): N40.0 - Benign prostatic hyperplasia without lower urinary tract symptoms Status: Acute Assessment and Plan: * With a history of urinary retention. * He is able to urinate, however postvoid residual this evening was approximately 300 milliliters. * Continue finasteride. (7) Bladder mass: Code(s): N32.89 - Other specified disorders of bladder Status: Acute Assessment and Plan: * 12 millimeter nodule noted at the left trigonal region of the bladder concerning for urothelial carcinoma. * As above , placement of catheter with no evidence masses just largw large hematoma Subjective Date/time seen: 09/22/19 15:42 Interval history: Date of visit 09/21. 79-year-old white male with chronic congestive heart failure AFib admitted with urinary retention and retroperitoneal hematoma. Anticoagulation has been held and Blackwood cath placed at cysto this a.m.. Seems fairly comfortable sitting in bed post procedure Exam Narrative: Exam Narrative: Blood pressure 102/60 pulse is 96 sat 96% on room air afebrile Pupils equal reactive to light sclera anicteric Lungs clear CV irregular Abdomen soft nontender no masses Extremities 1+ edema Neuro alert pleasant cooperative no focal deficits Objective Data Vital Signs Vital Signs: Vital Signs - 24 hr 09/21/19 22:00 09/21/19 22:05 09/22/19 06:00 Temperature 36.8 C 36.7 C Pulse Rate 106 H 82 99 Respiratory Rate 16 20 Blood Pressure 124/84 100/50 L Pulse Oximetr
--- NOTE | 2019-09-22 15:42 | PM.IMPN ---
Progress Note: A&P Assessment and Plan (1) Retroperitoneal hematoma: Code(s): K66.1 - Hemoperitoneum Status: Acute Assessment and Plan: Apixaban has been placed on hold and we will monitor hemoglobin/hematocrit. Dr. Abreu has been consulted and will continue with conservative management (2) Right inguinal hernia: Code(s): K40.90 - Unilateral inguinal hernia, without obstruction or gangrene, not specified as recurrent Status: Acute Assessment and Plan: CT shows a large fat containing right inguinal hernia extending into the right hemiscrotum with associated hemorrhage within the fat. Plan is as detailed above. (3) Systolic congestive heart failure: Code(s): I50.20 - Unspecified systolic (congestive) heart failure Status: Acute Assessment and Plan: Reasonably well compensated. Will continue with p.o. furosemide and spironolactone. Continue to monitor volume status closely. (4) Chronic atrial fibrillation: Code(s): I48.20 - Chronic atrial fibrillation, unspecified Status: Acute Assessment and Plan: He is rate controlled on amiodarone. Apixaban on hold given retroperitoneal hematoma. And with the hematuria he had last visit the [place] suggest sees not a candidate for anticoagulation (5) Current use of custodial anticoagulation: Code(s): Z79.01 - long-term (current) use of anticoagulants Status: Acute Assessment and Plan: As above, apixaban is on hold currently. (6) Benign prostatic hyperplasia: Code(s): N40.0 - Benign prostatic hyperplasia without lower urinary tract symptoms Status: Acute Assessment and Plan: With a history of urinary retention. He is able to urinate, however postvoid residual this evening was approximately 300 milliliters. Continue finasteride. (7) Bladder mass: Code(s): N32.89 - Other specified disorders of bladder Status: Acute Assessment and Plan: 12 millimeter nodule noted at the left trigonal region of the bladder concerning for urothelial carcinoma. As above , placement of catheter with no evidence masses just largw large hematoma Subjective Date/time seen: 09/22/19 15:42 Interval history: Date of visit 09/21. 79-year-old white male with chronic congestive heart failure AFib admitted with urinary retention and retroperitoneal hematoma. Anticoagulation has been held and Blackwood cath placed at cysto this a.m.. Seems fairly comfortable sitting in bed post procedure Exam Narrative: Exam Narrative: Blood pressure 102/60 pulse is 96 sat 96% on room air afebrile Pupils equal reactive to light sclera anicteric Lungs clear CV irregular Abdomen soft nontender no masses Extremities 1+ edema Neuro alert pleasant cooperative no focal deficits Objective Data Vital Signs Vital Signs: Vital Signs - 24 hr 09/21/19 22:00 09/21/19 22:05 09/22/19 06:00 Temperature 36.8 C 36.7 C Pulse Rate 106 H 82 99 Respiratory Rate 16 20 Blood Pressure 124/84 100/50 L Pulse Oximetry 96 98 09/22/19 08:45 09/22/19 10:00 09/22/19 10:15 Temperature 36.7 C 36.6 C Pulse Rate 88 97 103 H Respiratory Rate 18 14 18 Blood Pressure 102/61 95/74 L 112/69 Pulse Oximetry 93 100 100 09/22/19 10:30 09/22/19 10:45 09/22/19 11:15 Temperature 36.7 C Pulse Rate 96 102 H 91 Respiratory Rate 18 22 H 18 Blood Pressure 106/74 107/85 101/58 L Pulse Oximetry 92 92 96 09/22/19 11:30 09/22/19 12:00 09/22/19 13:00 Temperature 36.7 C Pulse Rate 110 H 94 96 Respiratory Rate 18 18 18 Blood Pressure 108/65
[2019-09-22] MEDS: TERAZOSIN HCL 1 MG CAPSULE 4 MG PO (20:11)
[2019-09-22] MEDS: MELATONIN 3 MG TABLET PO (20:11)
[2019-09-23] VITALS (7 sets, daily range): BP systolic 95–103; BP diastolic 51–71; PULSE 88–108; RESP 17–22; TEMP 36.6–36.7; O2SAT 95–98; BMI 10.0
[2019-09-23] MEDS: ACETAMINOPHEN 325 MG TABLET 650 MG PO ×3 (00:42→21:10)
[2019-09-23 05:49] LABS: Blood Urea Nitrogen 19 mg/dL (9-20); Calcium 7.9 mg/dL (8.4-10.2); Carbon Dioxide 30 mmol/L (22-30); Chloride 104 mmol/L (98-107); Estimated CRCL calculation 63 ml/min; Estimated Glomerular Filt Rate > 60; Glucose 103 mg/dL (75-110); Potassium 3.8 mmol/L (3.4-5.0); Sodium 137 mmol/L (137-145)
[2019-09-23 05:51] LABS: Basophils Percent Auto 0.2 % (0.2-1.2); Eosinophils Absolute Auto 0.3 K/mm3 (0-0.3); Hematocrit 27.8 % (42.0-52.0); Hemoglobin 8.8 g/dL (14.0-18.0); Immature Granulocyte Absolute 0.04 K/mm3 (0.00-0.031); Immature Granulocyte Percent A 0.5 % (0-0.5); Lymphocytes Absolute Auto 1.06 K/mm3 (0.9-3.2); Lymphocytes Percent Auto 12.2 % (18.3-44.2); Mean Corpuscular HGB Conc 31.7 g/dl (32-36); Mean Corpuscular Hemoglobin 31.3 pg (26-34); Mean Corpuscular Volume 98.9 fl (80-100); Mean Platelet Volume 12.3 fl (7.4-10.4); Monocytes Absolute Auto 0.9 K/mm3 (0.1-0.6); Monocytes Percent Auto 9.8 % (2.6-8.5); Neutrophils Absolute Auto 6.4 K/mm3 (1.3-6.7); Neutrophils Percent Auto 74.3 % (45.5-73.1); Platelet Count Result 187 k/mm3 (150-375); Red Blood Count 2.81 M/mm3 (4.6-6.20); Red Cell Distribution Width 16.5 % (11.5-14.5); White Blood Count 8.7 K/mm3 (4.5-10.0)
[2019-09-23] MEDS: AMIODARONE HCL 200 MG TABLET 400 MG PO (08:41)
[2019-09-23] MEDS: FINASTERIDE 5 MG TABLET PO (08:42)
[2019-09-23] MEDS: FUROSEMIDE 20 MG TABLET PO (08:42)
[2019-09-23] MEDS: SACUBITRIL/VALSARTAN 24-26 MG TABLET 1 TAB PO ×2 (08:42→21:10)
[2019-09-23] MEDS: METOPROLOL TARTRATE 50 MG TAB 100 MG PO ×2 (08:42→21:09)
[2019-09-23] MEDS: SPIRONOLACTONE 25 MG TABLET PO (08:42)
[2019-09-23] MEDS: TOLNAFTATE 1% POWDER 45 GM BTL 1 APPLIC TOPICAL ×2 (08:43→21:10)
--- NOTE | 2019-09-23 14:14 | P.PNIM_ITS ---
Progress Note: A&P Assessment and Plan (1) Retroperitoneal hematoma: Code(s): K66.1 - Hemoperitoneum Status: Acute Assessment and Plan: * Apixaban has been placed on hold and we will monitor hemoglobin/hematocrit. * Dr. Abreu has seenand will continue with conservative management (2) Right inguinal hernia: Code(s): K40.90 - Unilateral inguinal hernia, without obstruction or gangrene, not specified as recurrent Status: Acute Assessment and Plan: * CT shows a large fat containing right inguinal hernia extending into the right hemiscrotum with associated hemorrhage within the fat. * Plan is as detailed above. hopefully will reduce after hematoma resolves (3) Systolic congestive heart failure: Code(s): I50.20 - Unspecified systolic (congestive) heart failure Status: Acute Assessment and Plan: * Reasonably well compensated. * Will continue with p.o. furosemide and spironolactone. * Continue to monitor volume status closely. (4) Chronic atrial fibrillation: Code(s): I48.20 - Chronic atrial fibrillation, unspecified Status: Acute Assessment and Plan: * He is rate controlled on amiodarone. * Apixaban on hold given retroperitoneal hematoma. And with the hematuria he had last visit the [place] suggest sees not a candidate for anticoagulation (5) Current use of jail anticoagulation: Code(s): Z79.01 - senior care (current) use of anticoagulants Status: Acute Assessment and Plan: * As above, apixaban is on hold currently. (6) Benign prostatic hyperplasia: Code(s): N40.0 - Benign prostatic hyperplasia without lower urinary tract symptoms Status: Acute Assessment and Plan: * With a history of urinary retention. * He is able to urinate, however postvoid residual this evening was approximately 300 milliliters. * Continue finasteride. (7) Bladder mass: Code(s): N32.89 - Other specified disorders of bladder Status: Acute Assessment and Plan: * 12 millimeter nodule noted at the left trigonal region of the bladder concerning for urothelial carcinoma. * As above , placement of catheter with no evidence masses just largw large hematoma (8) Anemia, blood loss: Code(s): D50.0 - Iron deficiency anemia secondary to blood loss (chronic) Status: Acute Assessment and Plan: Hemoglobin slightly less. Will check iron studies and transfuse if hemoglobin drops below 7 Subjective Date/time seen: 09/23/19 14:14 Interval history: Date of visit 09/22. 79-year-old white male with chronic congestive heart failure AFib admitted with urinary retention and retroperito heber hematoma. Anticoagulation has been held and Blackwood cath placed at cysto 09/21.. Seems fairly comfortable sitting in bed Exam Narrative: Exam Narrative: Blood pressure 102/52 pulse is 96 sat 98% on room air afebrile Pupils equal reactive to light sclera anicteric Lungs clear CV irregular Abdomen soft nontender no masses still swollen scrotum Extremities 1+ edema Neuro alert pleasant cooperative no focal deficits Objective Data Vital
--- NOTE | 2019-09-23 14:14 | PM.IMPN ---
Progress Note: A&P Assessment and Plan (1) Retroperitoneal hematoma: Code(s): K66.1 - Hemoperitoneum Status: Acute Assessment and Plan: Apixaban has been placed on hold and we will monitor hemoglobin/hematocrit. Dr. Abreu has seenand will continue with conservative management (2) Right inguinal hernia: Code(s): K40.90 - Unilateral inguinal hernia, without obstruction or gangrene, not specified as recurrent Status: Acute Assessment and Plan: CT shows a large fat containing right inguinal hernia extending into the right hemiscrotum with associated hemorrhage within the fat. Plan is as detailed above. hopefully will reduce after hematoma resolves (3) Systolic congestive heart failure: Code(s): I50.20 - Unspecified systolic (congestive) heart failure Status: Acute Assessment and Plan: Reasonably well compensated. Will continue with p.o. furosemide and spironolactone. Continue to monitor volume status closely. (4) Chronic atrial fibrillation: Code(s): I48.20 - Chronic atrial fibrillation, unspecified Status: Acute Assessment and Plan: He is rate controlled on amiodarone. Apixaban on hold given retroperitoneal hematoma. And with the hematuria he had last visit the [place] suggest sees not a candidate for anticoagulation (5) Current use of terminal gauger anticoagulation: Code(s): Z79.01 - terminologist (current) use of anticoagulants Status: Acute Assessment and Plan: As above, apixaban is on hold currently. (6) Benign prostatic hyperplasia: Code(s): N40.0 - Benign prostatic hyperplasia without lower urinary tract symptoms Status: Acute Assessment and Plan: With a history of urinary retention. He is able to urinate, however postvoid residual this evening was approximately 300 milliliters. Continue finasteride. (7) Bladder mass: Code(s): N32.89 - Other specified disorders of bladder Status: Acute Assessment and Plan: 12 millimeter nodule noted at the left trigonal region of the bladder concerning for urothelial carcinoma. As above , placement of catheter with no evidence masses just largw large hematoma (8) Anemia, blood loss: Code(s): D50.0 - Iron deficiency anemia secondary to blood loss (chronic) Status: Acute Assessment and Plan: Hemoglobin slightly less. Will check iron studies and transfuse if hemoglobin drops below 7 Subjective Date/time seen: 09/23/19 14:14 Interval history: Date of visit 09/22. 79-year-old white male with chronic congestive heart failure AFib admitted with urinary retention and retroperitoneal hematoma. Anticoagulation has been held and Blackwood cath placed at cysto 5/5.. Seems fairly comfortable sitting in bed Exam Narrative: Exam Narrative: Blood pressure 102/52 pulse is 96 sat 98% on room air afebrile Pupils equal reactive to light sclera anicteric Lungs clear CV irregular Abdomen soft nontender no masses still swollen scrotum Extremities 1+ edema Neuro alert pleasant cooperative no focal deficits Objective Data Vital Signs Vital Signs: Vital Signs - 24 hr 09/22/19 20:10 09/22/19 21:48 09/23/19 05:35 Temperature 36.4 C L 36.6 C Pulse Rate 100 97 99 Respiratory Rate 18 20 Blood Pressure 105/60 90/52 L 103/63 Pulse Oximetry 95 95 09/23/19 08:41 09/23/19 08:42 09/23/19 13:40 Temperature Pulse Rate 88 88 96 Respiratory Rate 22 H Blood Pressure 102/51 L Pulse Oximetry 98 Intake/Output Intake/Output: Intake & Output 09/20/19 09/21/19
--- NOTE | 2019-09-23 14:33 | PM.PNGS ---
Progress Note: A&P Assessment and Plan (1) Right inguinal hernia: Code(s): K40.90 - Unilateral inguinal hernia, without obstruction or gangrene, not specified as recurrent Status: Acute Assessment and Plan: Continue to hold anticoagulation to allow time for hematoma to resolve Hernia is partially reducible and does not appear to contain bowel at this time Due to comorbidities, would reserve surgery for signs of incarceration or bowel obstruction (2) Umbilical hernia without obstruction and without gangrene: Code(s): K42.9 - Umbilical hernia without obstruction or gangrene Status: Acute (3) Retroperitoneal hematoma: Code(s): K66.1 - Hemoperitoneum Status: Acute (4) Scrotal edema: Code(s): N50.89 - Other specified disorders of the male genital organs Status: Acute Subjective Subjective Date/Time Seen: 09/23/19 14:33 Scrotal pain slightly less today. Able to get up and do some light activity today. Exam : Scrotum: inguinal hernia on the right Other: Scrotal edema relatively unchanged. Slight ecchymosis on right hemiscrotum today. No erythema or open wounds. Inguinal hernia extends into scrotum but remains soft and partially reducible, containing fat. Objective Data Vital Signs Vital Signs: Vital Signs - 24 hr 09/22/19 20:10 09/22/19 21:48 09/23/19 05:35 Temperature 36.4 C L 36.6 C Pulse Rate 100 97 99 Respiratory Rate 18 20 Blood Pressure 105/60 90/52 L 103/63 Pulse Oximetry 95 95 09/23/19 08:41 09/23/19 08:42 09/23/19 13:40 Temperature Pulse Rate 88 88 96 Respiratory Rate 22 H Blood Pressure 102/51 L Pulse Oximetry 98 Intake/Output Intake/Output: Intake & Output 09/20/19 09/21/19 09/22/19 09/23/19 23:59 23:59 23:59 23:59 Intake Total 590 3210 880 Output Total 2500 400 Balance 590 615 480 Meds/Results Medications: Active Medications Generic Name Dose Route Start Last Admin Trade Name Freq PRN Reason Stop Dose Admin Acetaminophen 650 mg 09/21/19 20:41 09/23/19 00:42 Tylenol Tablet PO 650 mg Q4H PRN Administration Mild Pain (1-3) Or Fever Hydrocodone Bitart/Acetaminophen 1 tab 09/21/19 20:41 09/23/19 13:41 [place] 10-325 Mg PO 1 tab Q8H PRN Administration pain 4-6 Amiodarone HCl 400 mg 09/22/19 09:00 09/23/19 08:41 Pacerone PO 400 mg DAILY GENTRY Administration Bisacodyl 5 mg 09/21/19 20:41 Dulcolax Tab PO QAM PRN Constipation Finasteride 5 mg 09/22/19 09:00 09/23/19 08:42 Proscar PO 5 mg QAM GENTRY Administration Furosemide 20 mg 09/22/19 09:00 09/23/19 08:42 Lasix Tablet PO 20 mg DAILY GENTRY Administration Hydromorphone HCl 0.5 mg 09/21/19 21:42 09/22/19 02:36 Dilaudid Inj IV PUSH 0.5 mg Q3H PRN Administration Pain Rated 7-10 Ceftriaxone Sodium/Dextrose 1 gm in 50 mls @ 100 mls/hr 09/22/19 09:00 09/23/19 09:57 Rocephin 1 Gm/D5w 50 Ml IVPB Infused Q24H GENTRY Infusion Magnesium Hydroxide 30 ml 09/21/19 20:41 Milk Of Magnesia PO DAILY PRN Constipation Melatonin 3 mg 09/21/19 21:00 09/22/19 20:11 Melatonin PO 3 mg HS GENTRY Administration Metoprolol Tartrate 100 mg 09/21/19 21:00 09/23/19 08:42 Lopressor PO 100 mg Q12HR GENTRY Administration Sacubitril/Valsartan 1 tab 09/21/19 21:00 09/23/19 08:42 Entresto 24 Mg-26 Mg Tablet PO 1 tab Q12HR GENTRY Administration Spironolactone 25 mg 09/22/19 09:00 09/23/19 08:42 Aldactone PO 25 mg DAILY GENTRY Administration Terazosin HCl 4 mg 09/21/19 21:00 09/22/19 20:11 Hytrin PO 4 mg HS GENTRY Administration Tolnaftate 1 applic 09/22/19 09:00 09/23/19 08:43 Tolnaftate 1% Powder TOPICAL 1 applic Q12HR GENTRY Administration Labs Labs: Laboratory Results - last 24 hr 09/23/19 09/23/19 05:08 05:08 WBC 8.7 RBC 2.81 L Hgb 8.8 L Hct 27.8 L MCV 98.9 MCH 31.3 MCHC 31.7 L RDW
[2019-09-23] MEDS: TERAZOSIN HCL 1 MG CAPSULE 4 MG PO (21:08)
[2019-09-23] MEDS: MELATONIN 3 MG TABLET PO (21:09)
[2019-09-24 06:00] VITALS: BP 117/71; PULSE 96; RESP 20; TEMP 36.6; O2SAT 95
[2019-09-24 06:22] LABS: Basophils Percent Auto 0.3 % (0.2-1.2); Eosinophils Absolute Auto 0.3 K/mm3 (0-0.3); Eosinophils Percent Auto 3.5 % (0-4.4); Hematocrit 28.2 % (42.0-52.0); Hemoglobin 8.9 g/dL (14.0-18.0); Immature Granulocyte Absolute 0.03 K/mm3 (0.00-0.031); Immature Granulocyte Percent A 0.4 % (0-0.5); Lymphocytes Absolute Auto 1.17 K/mm3 (0.9-3.2); Lymphocytes Percent Auto 14.7 % (18.3-44.2); Mean Corpuscular HGB Conc 31.6 g/dl (32-36); Mean Corpuscular Hemoglobin 31.6 pg (26-34); Mean Platelet Volume 12.2 fl (7.4-10.4); Monocytes Absolute Auto 0.8 K/mm3 (0.1-0.6); Monocytes Percent Auto 9.6 % (2.6-8.5); Neutrophils Absolute Auto 5.7 K/mm3 (1.3-6.7); Neutrophils Percent Auto 71.5 % (45.5-73.1); Platelet Count Result 183 k/mm3 (150-375); Red Blood Count 2.82 M/mm3 (4.6-6.20); Red Cell Distribution Width 16.5 % (11.5-14.5)
[2019-09-24 06:38] LABS: Blood Urea Nitrogen 17 mg/dL (9-20); Calcium 8.1 mg/dL (8.4-10.2); Carbon Dioxide 32 mmol/L (22-30); Chloride 104 mmol/L (98-107); Estimated CRCL calculation 78 ml/min; Estimated Glomerular Filt Rate > 60; Glucose 95 mg/dL (75-110); Potassium 3.6 mmol/L (3.4-5.0); Sodium 138 mmol/L (137-145)
[2019-09-24] MEDS: FUROSEMIDE 20 MG TABLET PO (09:16)
[2019-09-24] MEDS: FINASTERIDE 5 MG TABLET PO (09:16)
[2019-09-24] MEDS: SACUBITRIL/VALSARTAN 24-26 MG TABLET 1 TAB PO ×2 (09:16→20:53)
[2019-09-24 09:17] VITALS: PULSE 92
[2019-09-24] MEDS: TOLNAFTATE 1% POWDER 45 GM BTL 1 APPLIC TOPICAL ×2 (09:17→20:54)
[2019-09-24] MEDS: AMIODARONE HCL 200 MG TABLET 400 MG PO (09:17)
[2019-09-24] MEDS: SPIRONOLACTONE 25 MG TABLET PO (09:17)
[2019-09-24] MEDS: METOPROLOL TARTRATE 50 MG TAB 100 MG PO ×2 (09:17→20:53)
--- NOTE | 2019-09-24 09:53 | PM.PNGS ---
Progress Note: A&P Assessment and Plan (1) Right inguinal hernia: Code(s): K40.90 - Unilateral inguinal hernia, without obstruction or gangrene, not specified as recurrent Status: Acute Assessment and Plan: Continue to hold anticoagulation to allow time for hematoma to resolve H/H stable. Continue to monitor. Hernia is partially reducible and does not appear to contain bowel at this time. Will continue to hold off on surgery unless incarcerated or bowel is obstructed. (2) Retroperitoneal hematoma: Code(s): K66.1 - Hemoperitoneum Status: Acute Assessment and Plan: See plan above. (3) Umbilical hernia without obstruction and without gangrene: Code(s): K42.9 - Umbilical hernia without obstruction or gangrene Status: Acute (4) Scrotal edema: Code(s): N50.89 - Other specified disorders of the male genital organs Status: Acute Assessment and Plan: Scrotal elevation. Additional Plan Discussed the patient's case and formulated the plan of care with Dr. Abreu. Subjective Subjective Date/Time Seen: 09/24/19 08:45 Patient reports: no new complaints Interval history: Patient sitting in bed and reports feeling tired this morning. Reports his right groin/scrotal pain is about the same. No new complaints. Review of Systems Review of Systems: All systems reviewed & are unremarkable except as noted in HPI and below Exam Const: General: no acute distress, alert and awake Orientation/consciousness: patient oriented x3 and Other orientation findings (forgetful) GI: Inspection: obesity and other (largely protuberant) GI Palp: Yes Soft to palpation, Yes Tenderness to palpation present (GI) (RLQ towards right groin, unchanged), No Guarding due to palpation present (GI) and Yes Hernia present (umbilical hernia) Auscultation: normal bowel sounds : Penis: Yes other (buried in scrotal swelling.) Scrotum: ecchymosis (dependent aspect of scrotum), edematous, not erythematous, scrotal swelling and other (Skin intact. Scrotum still significantly tender.) Other: Right inguinal hernia that remains soft and seems to be partially reducible, difficult to appreciate due to surrounding edema. Urinary Catheter: Urinary Catheter: patent and draining Psych: Speech and movement: Normal speech and movement present Affect: normal affect Thought process: Normal thought process present Objective Data Vital Signs Vital Signs: Vital Signs - 24 hr 09/23/19 13:40 09/23/19 14:00 09/23/19 21:09 Temperature 36.6 C Pulse Rate 96 98 106 H Respiratory Rate 22 H 17 Blood Pressure 102/51 L 103/71 Pulse Oximetry 98 95 09/23/19 21:29 09/24/19 06:00 09/24/19 09:17 Temperature 36.7 C 36.6 C Pulse Rate 108 H 96 92 Respiratory Rate 18 20 Blood Pressure 95/57 L 117/71 Pulse Oximetry 95 95 Intake/Output Intake/Output: Intake & Output 09/21/19 09/22/19 09/23/19 09/24/19 23:59 23:59 23:59 23:59 Intake Total 590 3210 1730 540 Output Total 2500 950 375 Balance 590 710 780 165 Meds/Results Medications: Active Medications Generic Name Dose Route Start Last Admin Trade Name Freq PRN Reason Stop Dose Admin Acetaminophen 650 mg 09/21/19 20:41 09/23/19 21:10 Tylenol Tablet PO 650 mg Q4H PRN Administration Mild Pain (1-3) Or Fever Hydrocodone Bitart/Acetaminophen 1 tab 09/21/19 20:41 09/24/19 09:15 [place] 10-325 Mg PO 1 tab Q8H PRN Administration pain 4-6 Amiodarone HCl 400 mg 09/22/19 09:00 09/24/19 09:17 Pacerone PO 400 mg DAILY GENTRY Administration Bisacodyl 5 mg 09/21/19 20:41 Dulcolax Tab PO QAM PRN Constipation Finasteride 5 mg 09/22/19 09:00 09/24/19 09:16 Proscar PO 5 mg QAM GENTRY Administration Furosemide 20 mg 09/22/19 09:00 09/24/19 09:16 Lasix Tablet PO 20 mg DAILY GENTRY Administration Hydromorphone HCl 0.5 mg 09/21/19 21:42 09/22/19 02:36 Dilaudid Inj IV PUSH 0.5
--- NOTE | 2019-09-24 11:14 | PCOTNOTE ---
Attempted to see patient this am, however patient declined due to increased pain. Pt reported 8/10 pain in tailbone. Pt not seen for this reason. Nursing notified.
[2019-09-24 14:00] VITALS: BP 118/72; PULSE 94; RESP 20; TEMP 36.6; O2SAT 95
--- NOTE | 2019-09-24 17:52 | P.PNIM_ITS ---
Progress Note: A&P Assessment and Plan (1) Retroperitoneal hematoma: Code(s): K66.1 - Hemoperitoneum Status: Acute Assessment and Plan: * Apixaban has been placed on hold and we will continue to monitor hemoglo bin/hematocrit. * Dr. Abreu has seen and will continue with conservative management (2) Right inguinal hernia: Code(s): K40.90 - Unilateral inguinal hernia, without obstruction or gangrene, not specified as recurrent Status: Acute Assessment and Plan: * CT shows a large fat containing right inguinal hernia extending into the right hemiscrotum with associated hemorrhage within the fat. * Plan is as detailed above. hopefully will reduce after hematoma resolves (3) Systolic congestive heart failure: Code(s): I50.20 - Unspecified systolic (congestive) heart failure Status: Acute Assessment and Plan: * Reasonably well compensated. * Will continue with p.o. furosemide and spironolactone. * Continue to monitor volume status closely. (4) Chronic atrial fibrillation: Code(s): I48.20 - Chronic atrial fibrillation, unspecified Status: Acute Assessment and Plan: * He is rate controlled on amiodarone. * Apixaban on hold given retroperitoneal hematoma. And with the hematuria he had last visit suggests he is not a candidate for anticoagulation (5) Current use of intermodal customer service anticoagulation: Code(s): Z79.01 - long term (current) use of anticoagulants Status: Acute Assessment and Plan: * As above, apixaban is on hold currently. (6) Benign prostatic hyperplasia: Code(s): N40.0 - Benign prostatic hyperplasia without lower urinary tract symptoms Status: Acute Assessment and Plan: * With a history of urinary retention. * He was able to urinate, however postvoid residual this evening was approximately 300 milliliters and with hematoma plasencia was placed * Continue finasteride.and terazosin (7) Bladder mass: Code(s): N32.89 - Other specified disorders of bladder Status: Acute Assessment and Plan: * 12 millimeter nodule noted at the left trigonal region of the bladder concerning for urothelial carcinoma. * As above , placement of catheter with no evidence masses just large hematoma (8) Anemia, blood loss: Code(s): D50.0 - Iron deficiency anemia secondary to blood loss (chronic) Status: Acute Assessment and Plan: Hemoglobin slightly less. but stable now at 8.9 Will check iron studies and transfuse if hemoglobin drops below 7 Subjective Date/time seen: 09/24/19 17:52 Interval history: Date of visit 09/23. 79-year-old white male with chronic con gestive heart failure AFib admitted with urinary retention and retroperitoneal hematoma. Anticoagulation has been held and Plasencia cath placed at cysto 09/21.. Seems fairly comfortable sitting in bed and working with PT now . no pain Exam Narrative: Exam Narrative: Blood pressure 118/72 pulse is 90 sat 95% on room air afebrile Pupils equal reactive to light sclera anicteric Lungs clear CV irregular Abdomen soft nontender no masses still swollen scrotum Extremities
--- NOTE | 2019-09-24 17:52 | PM.IMPN ---
Progress Note: A&P Assessment and Plan (1) Retroperitoneal hematoma: Code(s): K66.1 - Hemoperitoneum Status: Acute Assessment and Plan: Apixaban has been placed on hold and we will continue to monitor hemoglobin/hematocrit. Dr. Abreu has seen and will continue with conservative management (2) Right inguinal hernia: Code(s): K40.90 - Unilateral inguinal hernia, without obstruction or gangrene, not specified as recurrent Status: Acute Assessment and Plan: CT shows a large fat containing right inguinal hernia extending into the right hemiscrotum with associated hemorrhage within the fat. Plan is as detailed above. hopefully will reduce after hematoma resolves (3) Systolic congestive heart failure: Code(s): I50.20 - Unspecified systolic (congestive) heart failure Status: Acute Assessment and Plan: Reasonably well compensated. Will continue with p.o. furosemide and spironolactone. Continue to monitor volume status closely. (4) Chronic atrial fibrillation: Code(s): I48.20 - Chronic atrial fibrillation, unspecified Status: Acute Assessment and Plan: He is rate controlled on amiodarone. Apixaban on hold given retroperitoneal hematoma. And with the hematuria he had last visit suggests he is not a candidate for anticoagulation (5) Current use of long term care administrator anticoagulation: Code(s): Z79.01 - prison (current) use of anticoagulants Status: Acute Assessment and Plan: As above, apixaban is on hold currently. (6) Benign prostatic hyperplasia: Code(s): N40.0 - Benign prostatic hyperplasia without lower urinary tract symptoms Status: Acute Assessment and Plan: With a history of urinary retention. He was able to urinate, however postvoid residual this evening was approximately 300 milliliters and with hematoma plasencia was placed Continue finasteride.and terazosin (7) Bladder mass: Code(s): N32.89 - Other specified disorders of bladder Status: Acute Assessment and Plan: 12 millimeter nodule noted at the left trigonal region of the bladder concerning for urothelial carcinoma. As above , placement of catheter with no evidence masses just large hematoma (8) Anemia, blood loss: Code(s): D50.0 - Iron deficiency anemia secondary to blood loss (chronic) Status: Acute Assessment and Plan: Hemoglobin slightly less. but stable now at 8.9 Will check iron studies and transfuse if hemoglobin drops below 7 Subjective Date/time seen: 09/24/19 17:52 Interval history: Date of visit 09/23. 79-year-old white male with chronic congestive heart failure AFib admitted with urinary retention and retroperitoneal hematoma. Anticoagulation has been held and Plasencia cath placed at cysto 09/21.. Seems fairly comfortable sitting in bed and working with PT now . no pain Exam Narrative: Exam Narrative: Blood pressure 118/72 pulse is 90 sat 95% on room air afebrile Pupils equal reactive to light sclera anicteric Lungs clear CV irregular Abdomen soft nontender no masses still swollen scrotum Extremities 1+ edema Neuro alert pleasant cooperative no focal deficits Objective Data Vital Signs Vital Signs: Vital Signs - 24 hr 09/23/19 21:09 09/23/19 21:29 09/24/19 06:00 Temperature 36.7 C 36.6 C Pulse Rate 106 H 108 H 96 Respiratory Rate 18 20 Blood Pressure 95/57 L 117/71 Pulse Oximetry 95 95 09/24/19 09:17 09/24/19 14:00 Temperature 36.6 C Pulse Rate 92 94 Respiratory Rate 20 Blood Pressure 118/72 Pulse Oxim
[2019-09-24] MEDS: TERAZOSIN HCL 1 MG CAPSULE 4 MG PO (20:52)
[2019-09-24 20:53] VITALS: PULSE 100
[2019-09-24] MEDS: MELATONIN 3 MG TABLET PO (20:53)
[2019-09-24] MEDS: ACETAMINOPHEN 325 MG TABLET 650 MG PO (21:11)
[2019-09-24 21:51] VITALS: BP 103/56; PULSE 110; RESP 18; TEMP 36.2; O2SAT 97
[2019-09-25 05:37] LABS: Basophils Percent Auto 0.3 % (0.2-1.2); Eosinophils Absolute Auto 0.2 K/mm3 (0-0.3); Eosinophils Percent Auto 2.3 % (0-4.4); Hematocrit 28.4 % (42.0-52.0); Hemoglobin 8.9 g/dL (14.0-18.0); Immature Granulocyte Absolute 0.04 K/mm3 (0.00-0.031); Immature Granulocyte Percent A 0.5 % (0-0.5); Lymphocytes Absolute Auto 0.89 K/mm3 (0.9-3.2); Lymphocytes Percent Auto 11.2 % (18.3-44.2); Mean Corpuscular HGB Conc 31.3 g/dl (32-36); Mean Corpuscular Hemoglobin 30.9 pg (26-34); Mean Corpuscular Volume 98.6 fl (80-100); Mean Platelet Volume 11.8 fl (7.4-10.4); Monocytes Absolute Auto 0.8 K/mm3 (0.1-0.6); Monocytes Percent Auto 9.7 % (2.6-8.5); Neutrophils Absolute Auto 6.1 K/mm3 (1.3-6.7); Platelet Count Result 209 k/mm3 (150-375); Red Blood Count 2.88 M/mm3 (4.6-6.20); Red Cell Distribution Width 16.3 % (11.5-14.5)
[2019-09-25 05:42] LABS: Blood Urea Nitrogen 14 mg/dL (9-20); Calcium 8.1 mg/dL (8.4-10.2); Carbon Dioxide 30 mmol/L (22-30); Chloride 102 mmol/L (98-107); Estimated CRCL calculation 78 ml/min; Estimated Glomerular Filt Rate > 60; Glucose 112 mg/dL (75-110); Potassium 3.4 mmol/L (3.4-5.0); Sodium 137 mmol/L (137-145)
[2019-09-25 06:00] VITALS: BP 96/47; PULSE 104; RESP 18; TEMP 36.3; O2SAT 96
[2019-09-25 06:13] LABS: Iron 29 ug/dL (49-181)
[2019-09-25 06:22] LABS: Percent Iron Saturation 12 % (20-50)
[2019-09-25 08:48] VITALS: BP 100/72; PULSE 113
[2019-09-25] MEDS: METOPROLOL TARTRATE 50 MG TAB 100 MG PO (08:48)
[2019-09-25] MEDS: FUROSEMIDE 20 MG TABLET PO (08:48)
[2019-09-25 08:49] VITALS: PULSE 113
[2019-09-25] MEDS: SACUBITRIL/VALSARTAN 24-26 MG TABLET 1 TAB PO (08:49)
[2019-09-25] MEDS: POTASSIUM CHLORIDE 20 MEQ TABLET 40 MEQ PO (08:49)
[2019-09-25] MEDS: ACETAMINOPHEN 325 MG TABLET 650 MG PO ×2 (08:49→16:55)
[2019-09-25] MEDS: SPIRONOLACTONE 25 MG TABLET PO (08:49)
[2019-09-25] MEDS: AMIODARONE HCL 200 MG TABLET 400 MG PO (08:49)
[2019-09-25] MEDS: FINASTERIDE 5 MG TABLET PO (08:49)
[2019-09-25] MEDS: TOLNAFTATE 1% POWDER 45 GM BTL 1 APPLIC TOPICAL (08:52)
--- NOTE | 2019-09-25 09:53 | PM.PNGS ---
Progress Note: A&P Assessment and Plan (1) Right inguinal hernia: Code(s): K40.90 - Unilateral inguinal hernia, without obstruction or gangrene, not specified as recurrent Status: Acute Assessment and Plan: Hernia now appears soft and most likely is reducible. He still has a lot of scrotal edema so exam is somewhat limited. Bruising noted along right scrotum and tenderness over this area. This will likely improve slowly over time. He does not appear to be bleeding still, H/H has been stable for a number of days. OK for discharge from surgical standpoint. Diurese and elevate scrotum to help with scrotal edema. Surgery not a good option in this patient with cardiac EF 25%. Would likely need cardiac optimization and clearance first. If juvenal were involved with hernia, then surgery would have to be considered on a more urgent basis. Will follow as needed. (2) Retroperitoneal hematoma: Code(s): K66.1 - Hemoperitoneum Status: Acute (3) Umbilical hernia without obstruction and without gangrene: Code(s): K42.9 - Umbilical hernia without obstruction or gangrene Status: Acute Subjective Subjective Date/Time Seen: 09/25/19 09:53 Patient still having scrotal pain, but no problems with bowels. Tolerating diet. Exam : Scrotum: inguinal hernia (reducible, but a lot of scrotal edema makes exam somewhat difficult) on the right and scrotal swelling (Significant scrotal edema and ecchymosis along dependent portion) diffuse Objective Data Vital Signs Vital Signs: Vital Signs - 24 hr 09/24/19 14:00 09/24/19 20:53 09/24/19 21:51 Temperature 36.6 C 36.2 C L Pulse Rate 94 100 110 H Respiratory Rate 20 18 Blood Pressure 118/72 103/56 L Pulse Oximetry 95 97 09/25/19 06:00 09/25/19 08:48 09/25/19 08:49 Temperature 36.3 C L Pulse Rate 104 H 113 H 113 H Respiratory Rate 18 Blood Pressure 96/47 L 100/72 Pulse Oximetry 96 Intake/Output Intake/Output: Intake & Output 09/22/19 09/23/19 09/24/19 09/25/19 23:59 23:59 23:59 23:59 Intake Total 3210 1730 1620 340 Output Total 2500 950 875 450 Balance 710 780 745 -110 Meds/Results Medications: Active Medications Generic Name Dose Route Start Last Admin Trade Name Freq PRN Reason Stop Dose Admin Acetaminophen 650 mg 09/21/19 20:41 09/25/19 08:49 Tylenol Tablet PO 650 mg Q4H PRN Administration Mild Pain (1-3) Or Fever Hydrocodone Bitart/Acetaminophen 1 tab 09/21/19 20:41 09/25/19 02:22 [place] 10-325 Mg PO 1 tab Q8H PRN Administration pain 4-6 Amiodarone HCl 400 mg 09/22/19 09:00 09/25/19 08:49 Pacerone PO 400 mg DAILY GENTRY Administration Bisacodyl 5 mg 09/21/19 20:41 Dulcolax Tab PO QAM PRN Constipation Finasteride 5 mg 09/22/19 09:00 09/25/19 08:49 Proscar PO 5 mg QAM GENTRY Administration Furosemide 20 mg 09/22/19 09:00 09/25/19 08:48 Lasix Tablet PO 20 mg DAILY GENTRY Administration Hydromorphone HCl 0.5 mg 09/21/19 21:42 09/22/19 02:36 Dilaudid Inj IV PUSH 0.5 mg Q3H PRN Administration Pain Rated 7-10 Ceftriaxone Sodium/Dextrose 1 gm in 50 mls @ 100 mls/hr 09/22/19 09:00 09/24/19 10:02 Rocephin 1 Gm/D5w 50 Ml IVPB Infused Q24H GENTRY Infusion Magnesium Hydroxide 30 ml 09/21/19 20:41 Milk Of Magnesia PO DAILY PRN Constipation Melatonin 3 mg 09/21/19 21:00 09/24/19 20:53 Melatonin PO 3 mg HS GENTRY Administration Metoprolol Tartrate 100 mg 09/21/19 21:00 09/25/19 08:48 Lopressor PO 100 mg Q12HR GENTRY Administration Sacubitril/Valsartan 1 tab 09/21/19 21:00 09/25/19 08:49 Entresto 24 Mg-26 Mg Tablet PO 1 tab Q12HR GENTRY Administration Spironolactone 25 mg 09/22/19 09:00 09/25/19 08:49 Aldactone PO 25 mg DAILY GENTRY Administration Terazosin HCl 4 mg 09/21/19 21:00 09/24/19 20:52 Hytrin PO 4 mg HS GENTRY Administration Tolnaftate 1 applic 09/22/19
[2019-09-25 14:00] VITALS: BP 101/62; PULSE 106; RESP 20; TEMP 36.5; O2SAT 98
--- NOTE | 2019-09-25 15:07 | P.PNIM_ITS ---
Progress Note: A&P Assessment and Plan (1) Retroperitoneal hematoma: Code(s): K66.1 - Hemoperitoneum Status: Acute Assessment and Plan: * Apixaban has been placed on hold and continue to monitor hemoglobin/charissa tocrit. * Dr. Abreu has seen and will continue with conservative management with no surgery planned (2) Right inguinal hernia: Code(s): K40.90 - Unilateral inguinal hernia, without obstruction or gangrene, not specified as recurrent Status: Acute Assessment and Plan: * CT shows a large fat containing right inguinal hernia extending into the right hemiscrotum with associated hemorrhage within the fat. * Plan is as detailed above. and per surgery can d/c (3) Systolic congestive heart failure: Code(s): I50.20 - Unspecified systolic (congestive) heart failure Status: Acute Assessment and Plan: * Reasonably well compensated. * Will continue with p.o. furosemide and spironolactone. * Continue to monitor volume status closely. (4) Chronic atrial fibrillation: Code(s): I48.20 - Chronic atrial fibrillation, unspecified Status: Acute Assessment and Plan: * He is rate controlled on amiodarone. * Apixaban on hold given retroperitoneal hematoma. And with the hematuria he had last visit suggests he is not a candidate for anticoagulation (5) Current use of buttermaker helper anticoagulation: Code(s): Z79.01 - buttermaker helper (current) use of anticoagulants Status: Acute Assessment and Plan: * As above, apixaban is on hold currently with no plan to restart (6) Benign prostatic hyperplasia: Code(s): N40.0 - Benign prostatic hyperplasia without lower urinary tract symptoms Status: Acute Assessment and Plan: * With a history of urinary retention. * He was able to urinate, however postvoid residual was approximately 300 milliliters on admission and with hematoma plasencia was placed * Continue finasteride.and terazosin (7) Bladder mass: Code(s): N32.89 - Other specified disorders of bladder Status: Acute Assessment and Plan: * 12 millimeter nodule noted at the left trigonal region of the bladder concerning for urothelial carcinoma. * As above , placement of catheter with no evidence masses just large hematoma * urology plans to leave plasencia longer term, until hematoma has resolved before voiding trial (8) Anemia, blood loss: Code(s): D50.0 - Iron deficiency anemia secondary to blood loss (chronic) Status: Acute Assessment and Plan: Hemoglobin stable now at 8.9 and Fe studies compatible with anemia of chronic disease Patient still very weak and will right knee placement for rehab waiting input from care coordination Subjective Date/time seen: 09/25/19 15:07 Interval history: Date of visit 09/24. 79-year-old white male with chronic congestive heart failure AFib admitted with urinary retention and retroperitoneal hematoma. Anticoagulation has been held and Plasencia cath placed at cysto 5/5.. Seems fairly comfortable sitting in bed and working with PT now . no pain Exam Narrative: Exam Narrative: Blood pressure 102/6
--- NOTE | 2019-09-25 15:07 | PM.IMPN ---
Progress Note: A&P Assessment and Plan (1) Retroperitoneal hematoma: Code(s): K66.1 - Hemoperitoneum Status: Acute Assessment and Plan: Apixaban has been placed on hold and continue to monitor hemoglobin/hematocrit. Dr. Abreu has seen and will continue with conservative management with no surgery planned (2) Right inguinal hernia: Code(s): K40.90 - Unilateral inguinal hernia, without obstruction or gangrene, not specified as recurrent Status: Acute Assessment and Plan: CT shows a large fat containing right inguinal hernia extending into the right hemiscrotum with associated hemorrhage within the fat. Plan is as detailed above. and per surgery can d/c (3) Systolic congestive heart failure: Code(s): I50.20 - Unspecified systolic (congestive) heart failure Status: Acute Assessment and Plan: Reasonably well compensated. Will continue with p.o. furosemide and spironolactone. Continue to monitor volume status closely. (4) Chronic atrial fibrillation: Code(s): I48.20 - Chronic atrial fibrillation, unspecified Status: Acute Assessment and Plan: He is rate controlled on amiodarone. Apixaban on hold given retroperitoneal hematoma. And with the hematuria he had last visit suggests he is not a candidate for anticoagulation (5) Current use of termite treater helper anticoagulation: Code(s): Z79.01 - halfway (current) use of anticoagulants Status: Acute Assessment and Plan: As above, apixaban is on hold currently with no plan to restart (6) Benign prostatic hyperplasia: Code(s): N40.0 - Benign prostatic hyperplasia without lower urinary tract symptoms Status: Acute Assessment and Plan: With a history of urinary retention. He was able to urinate, however postvoid residual was approximately 300 milliliters on admission and with hematoma plasencia was placed Continue finasteride.and terazosin (7) Bladder mass: Code(s): N32.89 - Other specified disorders of bladder Status: Acute Assessment and Plan: 12 millimeter nodule noted at the left trigonal region of the bladder concerning for urothelial carcinoma. As above , placement of catheter with no evidence masses just large hematoma urology plans to leave plasencia longer term, until hematoma has resolved before voiding trial (8) Anemia, blood loss: Code(s): D50.0 - Iron deficiency anemia secondary to blood loss (chronic) Status: Acute Assessment and Plan: Hemoglobin stable now at 8.9 and Fe studies compatible with anemia of chronic disease Patient still very weak and will right knee placement for rehab waiting input from care coordination Subjective Date/time seen: 09/25/19 15:07 Interval history: Date of visit 09/24. 79-year-old white male with chronic congestive heart failure AFib admitted with urinary retention and retroperitoneal hematoma. Anticoagulation has been held and Plasencia cath placed at cysto 09/21.. Seems fairly comfortable sitting in bed and working with PT now . no pain Exam Narrative: Exam Narrative: Blood pressure 102/62 pulse is 96 sat 98% on room air afebrile Pupils equal reactive to light sclera anicteric Lungs clear CV irregular Abdomen soft nontender no masses still swollen scrotum Extremities trace to 1+ edema Neuro alert pleasant cooperative no focal deficits Objective Data Vital Signs Vital Signs: Vital Signs - 24 hr 09/24/19 20:53 09/24/19 21:51 09/25/19 06:00 Temperature 36.2 C L 36.3 C L Pulse Rate 100 110 H 104 H Respira
--- NOTE | 2019-09-25 15:40 | WPDUROPN2 ---
Progress Note: A&P Assessment and Plan (1) Scrotal edema: Code(s): N50.89 - Other specified disorders of the male genital organs Status: Acute Assessment and Plan: scrotal elevation with optimization of fluid balance (2) Urinary retention: Code(s): R33.9 - Retention of urine, unspecified Status: Acute Assessment and Plan: home with [place] catheter and follow up with Dr. nguyễn as an outpatient. (3) Gross hematuria: Code(s): R31.0 - Gross hematuria Status: Acute Assessment and Plan: resolved Subjective Subjective Date/Time Seen: 09/25/19 15:40 He is tolerating the [place] catheter. Urine is clear. Exam Resp: Effort & Inspection: normal respiratory effort : Other: Significant penile and scrotal edema Urinary Catheter: Urinary Catheter: patent and draining Objective Data Vital Signs Vital Signs: Vital Signs - 24 hr 09/24/19 20:53 09/24/19 21:51 09/25/19 06:00 Temperature 97.1 F L 97.4 F L Pulse Rate 100 110 H 104 H Respiratory Rate 18 18 Blood Pressure 103/56 L 96/47 L Pulse Oximetry 97 96 09/25/19 08:48 09/25/19 08:49 09/25/19 14:00 Temperature 97.7 F Pulse Rate 113 H 113 H 106 H Respiratory Rate 20 Blood Pressure 100/72 101/62 Pulse Oximetry 98 Intake/Output Intake/Output: Intake & Output 09/22/19 09/23/19 09/24/19 09/25/19 23:59 23:59 23:59 23:59 Intake Total 3210 1730 1620 710 Output Total 2500 950 875 450 Balance 710 780 745 260 Meds/Results Medications: Active Medications Generic Name Dose Route Start Last Admin Trade Name Freq PRN Reason Stop Dose Admin Acetaminophen 650 mg 09/21/19 20:41 09/25/19 08:49 Tylenol Tablet PO 650 mg Q4H PRN Administration Mild Pain (1-3) Or Fever Hydrocodone Bitart/Acetaminophen 1 tab 09/21/19 20:41 09/25/19 11:41 [place] 10-325 Mg PO 1 tab Q8H PRN Administration pain 4-6 Amiodarone HCl 400 mg 09/22/19 09:00 09/25/19 08:49 Pacerone PO 400 mg DAILY GENTRY Administration Bisacodyl 5 mg 09/21/19 20:41 Dulcolax Tab PO QAM PRN Constipation Finasteride 5 mg 09/22/19 09:00 09/25/19 08:49 Proscar PO 5 mg QAM GENTRY Administration Furosemide 20 mg 09/22/19 09:00 09/25/19 08:48 Lasix Tablet PO 20 mg DAILY GENTRY Administration Hydromorphone HCl 0.5 mg 09/21/19 21:42 09/22/19 02:36 Dilaudid Inj IV PUSH 0.5 mg Q3H PRN Administration Pain Rated 7-10 Ceftriaxone Sodium/Dextrose 1 gm in 50 mls @ 100 mls/hr 09/22/19 09:00 09/25/19 10:37 Rocephin 1 Gm/D5w 50 Ml IVPB Infused Q24H GENTRY Infusion Magnesium Hydroxide 30 ml 09/21/19 20:41 Milk Of Magnesia PO DAILY PRN Constipation Melatonin 3 mg 09/21/19 21:00 09/24/19 20:53 Melatonin PO 3 mg HS GENTRY Administration Metoprolol Tartrate 100 mg 09/21/19 21:00 09/25/19 08:48 Lopressor PO 100 mg Q12HR GENTRY Administration Sacubitril/Valsartan 1 tab 09/21/19 21:00 09/25/19 08:49 Entresto 24 Mg-26 Mg Tablet PO 1 tab Q12HR GENTRY Administration Spironolactone 25 mg 09/22/19 09:00 09/25/19 08:49 Aldactone PO 25 mg DAILY GENTRY Administration Terazosin HCl 4 mg 09/21/19 21:00 09/24/19 20:52 Hytrin PO 4 mg HS GENTRY Administration Tolnaftate 1 applic 09/22/19 09:00 09/25/19 08:52 Tolnaftate 1% Powder TOPICAL 1 applic Q12HR GENTRY Administration Labs Labs: Laboratory Results - last 24 hr 09/25/19 09/25/19 09/25/19 05:12 05:12 05:12 WBC 8.0 RBC 2.88 L Hgb 8.9 L Hct 28.4 L MCV 98.6 MCH 30.9 MCHC 31.3 L RDW 16.3 H Plt Count 209 MPV 11.8 H Immature Gran % (Auto) 0.5 Neut % (Auto) 76.0 H Lymph % (Auto) 11.2 L [place] % (Auto) 9.7 H Eos % (Auto) 2.3 Baso % (Auto) 0.3 Lymph # (Auto) 0.89 L [place] # (Auto) 0.8 H Eos # (Auto) 0.2 Baso # (Auto) 0.0 Abs Immat Gran (auto) 0.04 H Absolute Neuts (auto) 6.1
--- NOTE | 2019-09-25 18:21 | P.DS_ITS ---
DS: Diagnosis Admitting Diagnosis Admitting Diagnosis: Hemoperitoneum Discharge Diagnosis (1) Retroperitoneal hematoma: Code(s): K66.1 - Hemoperitoneum Status: Acute Assessment and Plan: * Apixaban was discontinued and continue to monitor hemoglobin/hematocrit which stabilized at 8.9 on hemoglobin. * Dr. Abreu from general surgery evaluated and will continue with conservative management with no surgery planned (2) Right inguinal hernia: Code(s): K40.90 - Unilateral inguinal hernia, without obstruction or gangrene, not specified as recurrent Status: Acute Assessment and Plan: * CT shows a large fat containing right inguinal hernia extending into the right hemiscrotum with associated hemorrhage within the fat. * Plan is as detailed above. and per surgery can d/c (3) Systolic congestive heart failure: Code(s): I50.20 - Unspecified systolic (congestive) heart failure Status: Acute Assessment and Plan: * Reasonably well compensated. * Will continue with p.o. furosemide and spironolactone., furosemide was increased to 40 mg daily and continue Entresto with beta-subha and spironolactone * BMP drawn next week. (4) Chronic atrial fibrillation: Code(s): I48.20 - Chronic atrial fibrillation, unspecified Status: Acute Assessment and Plan: * He is rate controlled on amiodarone. * Apixaban was held given retroperitoneal hematoma. And with the hematuria he had last visit suggests he is not a candidate for anticoagulation (5) Current use of skilled nursing anticoagulation: Code(s): Z79.01 - prison (current) use of anticoagulants Status: Acute Assessment and Plan: * As above, apixaban was discontinued with no plan to restart (6) Benign prostatic hyperplasia: Code(s): N40.0 - Benign prostatic hyperplasia without lower urinary tract symptoms Status: Acute Assessment and Plan: * With a history of urinary retention. * He was able to urinate, however postvoid residual was approximately 300 milliliters on admission and with hematoma plasencia was placed by Urology * Continue finasteride.and terazosin (7) Bladder mass: Code(s): N32.89 - Other specified disorders of bladder Status: Acute Assessment and Plan: * 12 millimeter nodule noted at the left trigonal region of the bladder concerning for urothelial carcinoma. * As above , placement of catheter with no evidence masses just large hematoma * urology plans to leave plasencia longer term, until hematoma has resolved before voiding trial (8) Anemia, blood loss: Code(s): D50.0 - Iron deficiency anemia secondary to blood loss (chronic) Status: Acute Assessment and Plan: Hemoglobin stable now at 8.9 and Fe studies compatible with anemia of chronic disease Patient still very weak and needed placement for rehab, was transferred to [facility] Cam[facility] DS: Summary Hospital Course Hospital Course: 79-year-old white male was originally admitted to [facility] for increasing symptoms of heart failure. When he developed abdominal pain is CT scan showed retroperitoneal hematoma wit
--- NOTE | 2019-09-25 18:21 | PM.DS ---
DS: Diagnosis Admitting Diagnosis Admitting Diagnosis: Hemoperitoneum Discharge Diagnosis (1) Retroperitoneal hematoma: Code(s): K66.1 - Hemoperitoneum Status: Acute Assessment and Plan: Apixaban was discontinued and continue to monitor hemoglobin/hematocrit which stabilized at 8.[address] Abreu from general surgery evaluated and will continue with conservative management with no surgery planned (2) Right inguinal hernia: Code(s): K40.90 - Unilateral inguinal hernia, without obstruction or gangrene, not specified as recurrent Status: Acute Assessment and Plan: CT shows a large fat containing right inguinal hernia extending into the right hemiscrotum with associated hemorrhage within the fat. Plan is as detailed above. and per surgery can d/c (3) Systolic congestive heart failure: Code(s): I50.20 - Unspecified systolic (congestive) heart failure Status: Acute Assessment and Plan: Reasonably well compensated. Will continue with p.o. furosemide and spironolactone., furosemide was increased to 40 mg daily and continue Entresto with beta-subha and spironolactone BMP drawn next week. (4) Chronic atrial fibrillation: Code(s): I48.20 - Chronic atrial fibrillation, unspecified Status: Acute Assessment and Plan: He is rate controlled on amiodarone. Apixaban was held given retroperitoneal hematoma. And with the hematuria he had last visit suggests he is not a candidate for anticoagulation (5) Current use of long wall shear operator anticoagulation: Code(s): Z79.01 - rn long term care (current) use of anticoagulants Status: Acute Assessment and Plan: As above, apixaban was discontinued with no plan to restart (6) Benign prostatic hyperplasia: Code(s): N40.0 - Benign prostatic hyperplasia without lower urinary tract symptoms Status: Acute Assessment and Plan: With a history of urinary retention. He was able to urinate, however postvoid residual was approximately 300 milliliters on admission and with hematoma plasencia was placed by Urology Continue finasteride.and terazosin (7) Bladder mass: Code(s): N32.89 - Other specified disorders of bladder Status: Acute Assessment and Plan: 12 millimeter nodule noted at the left trigonal region of the bladder concerning for urothelial carcinoma. As above , placement of catheter with no evidence masses just large hematoma urology plans to leave plasencia longer term, until hematoma has resolved before voiding trial (8) Anemia, blood loss: Code(s): D50.0 - Iron deficiency anemia secondary to blood loss (chronic) Status: Acute Assessment and Plan: Hemoglobin stable now at 8.9 and Fe studies compatible with anemia of chronic disease Patient still very weak and needed placement for rehab, was transferred to [facility] DS: Summary Hospital Course Hospital Course: 79-year-old white male was originally admitted to [facility] for increasing symptoms of heart failure. When he developed abdominal pain is CT scan showed retroperitoneal hematoma with extending down and to inguinal hernia his scrotal area. Was transferred to [facility] in seen in consultation by General surgery and Urology. Urology took the OR for cysto and placement of Plasencia and had CBI afterwards. Urine cleared and Plasencia will be left in place until hematoma and edema subsided. Hernia was not incarcerated and surgery did not feel it was candidate for any intervention at this time He was discharged
== END 2019-09-25 18:54 | DRG 393 ==
PROVIDERS: Physician Assistant; Urology; Admitting Provider Internal Medicine; PCP Family Medicine; Visit Provider Internal Medicine
PROC: 0TCB8ZZ Extirpation of Matter from Bladder, Via Natural or Artificial Opening Endoscopic (ICD-10-PCS; CPT 52001; principal; 2019-09-22 12:00)
DX: K66.1 Hemoperitoneum (principal); I50.21 Acute systolic (congestive) heart failure; I42.0 Dilated cardiomyopathy; I48.20 Chronic atrial fibrillation, unspecified; I11.0 Hypertensive heart disease with heart failure; Z79.01 Long term (current) use of anticoagulants; D50.0 Iron deficiency anemia secondary to blood loss (chronic); N35.811 Other urethral stricture, male, meatal; N50.89 Other specified disorders of the male genital organs; N40.1 Benign prostatic hyperplasia with lower urinary tract symptoms; R33.8 Other retention of urine; N32.89 Other specified disorders of bladder; K40.90 Unilateral inguinal hernia, without obstruction or gangrene, not specified as recurrent; K42.9 Umbilical hernia without obstruction or gangrene; E78.5 Hyperlipidemia, unspecified; M19.90 Unspecified osteoarthritis, unspecified site; E66.9 Obesity, unspecified; Z68.35 Body mass index [BMI] 35.0-35.9, adult; Z79.899 Other long term (current) drug therapy; Z87.891 Personal history of nicotine dependence
CPT/HCPCS: 36415; 80048; 80053; 82728; 83540; 83550; 84443; 85025; 85610; 85730; 94762; 97110; 97162; 97165; 97530; 97535; A9270; J0131; J0696; J1170; J2405; J2704; J3010; J7120